=== PATIENT | male | born 1985 | race Caucasian/White ===

== ENCOUNTER 2017-03-19 19:54 | Inpatient (IN) | payer BC, OTHER ==
[~2017-03-19] VITALS: Ht 170.2 cm; Wt 72.9 kg
[~2017-03-19 19:54] MED LIST: ASPI81TA3 PO; CALC0.255 PO; CARV25TA97 PO; CLON-379 PO; FAMO20TA18 PO; FURO-109 PO; HYDR-3672 PO; LORA1TAB PO; NIFE90TA PO; NIT4 SL; SEVE800T10 PO
[2017-03-19] MEDS ORDERED: ACETAMINOPHEN 500 MG TAB PO STA (20:11)
[2017-03-19] MEDS ORDERED: CEFEPIME 2GM/50 ML (PMX) 50 ML IVPB STA (20:11)
[2017-03-19] MEDS ORDERED: SODIUM CHLORIDE 0.9% 1L BAG IV* STA (20:11)
[2017-03-19] MEDS ORDERED: VANCOMYCIN 1 GM (PMX) 250 ML IVPB ONE (20:30)
--- NOTE | 2017-03-19 20:37 | ERA ---
ER Documentation Chief Complaint Date/Time DATE: 03/19/17 TIME: 20:34 Chief Complaint [facility] from [facility],shaky during HD,c/o throbbing headache HPI Very pleasant 31-year-old male history of end-stage renal disease on dialysis who presents to the emergency room with shaking in the middle of dialysis. He had half of the session. He started to have uncontrolled shaking that was alleviated in a short timeframe. The patient did have elevated blood pressure and was given antihypertensive medication. He denies any headache chest pain or shortness of breath. He denies any abdominal pain. No reported fevers as an outpatient. He has a fever of 103 upon arrival. ROS All systems reviewed and are negative except as per history of present illness. Medications Home Meds Active Scripts Lorazepam* (Lorazepam*) 1 Mg Tablet, 1 MG PO BID Y for ANXIETY, #14 TAB Prov:PATTY SERNA 11/25/15 Hydralazine Hcl* (Hydralazine Hcl*) 50 Mg Tab, 50 MG PO QID, #120 TAB Prov:PATTY SERNA 11/25/15 Clonidine Hcl* (Clonidine Hcl*) 0.1 Mg Tab, 0.1 MG PO Q4H Y for sbp>160, #30 TAB Prov:REGBRIGHT RIZVI 11/18/15 Sevelamer Hcl* (Renagel*) 800 Mg Tab, 3200 MG PO WITH MEALS for 30 Days, TAB Prov:REGIDOBRIGHT Arias 11/18/15 Nifedipine* (Procardia XL*) 90 Mg Tabsr, 90 MG PO BID for 30 Days, TAB Prov:REGBRIGHT RIZVI 11/18/15 Furosemide* (Lasix*) 40 Mg Tab, 40 MG PO DAILY@06 for 30 Days, TAB Prov:REGIDOBRIGHT Airas 11/18/15 Carvedilol* (Coreg*) 25 Mg Tab, 25 MG PO BID for 30 Days, TAB Prov:BRIGHT AJCKSON 11/18/15 Nitroglycerin* (Nitrostat*) 25 Tab Subl, 0.4 TAB SL .Q5M UP TO 3 DOSES Y for CHEST PAIN, #30 TAB Prov:MORGAN JOHNSON MD 09/18/15 Calcitriol* (Rocaltrol*) 0.25 Mcg Cap, 0.25 MCG PO DAILY, #30 CAP 2 Refills Prov:MORGAN JOHNSON MD 09/18/15 Aspirin (Aspirin) 81 Mg Chew, 81 MG PO DAILY, #30 TAB 2 Refills Prov:MORGAN JOHNSON MD 09/18/15 Reported Medications Famotidine* (Famotidine*) 20 Mg Tablet, 20 MG PO BID, TAB 07/12/15 Allergies Allergies: Coded Allergies: No Known Allergy (Unverified , 11/25/15) PMhx/Soc Anesthesia Reaction: No Hx Neurological Disorder: No Hx Respiratory Disorders: No Hx Cardiac Disorders: Yes (HTN) Hx Psychiatric Problems: No Hx Miscellaneous Medical Probl: Yes (ESRD, peritoneal dialysis, peritoneal shunt) Hx Alcohol Use: Yes (NO LONGER DRINKS) Hx Substance Use: Yes (RECREATIONAL MARIJUANA) Hx Tobacco Use: No FmHx Family History: No diabetes Physical Exam Vitals Vital Signs Date Time Temp Pulse Resp B/P Pulse Ox O2 Delivery O2 Flow Rate FiO2 03/19/17 21:49 103.3 119 24 190/129 96 Room Air 03/19/17 20:57 0 03/19/17 20:00 100.0 105 18 195/120 98 Physical Exam General: Well developed, well nourished, no acute distress Head: Normocephalic, atraumatic Eyes: Pupils equally reactive, EOM intact ENT: Moist mucous membranes Neck: Supple, no lymphadenopathy Respiratory: Lungs clear bilaterally, no distress Cardiovascular: RRR, no murmurs, rubs, or gallops Abdominal: Soft, non-tender, non-distended, no peritoneal signs : Deferred MSK: No edema, no unilateral swelling, 5/5 strength Neurologic: Alert and oriented, moving all extremities, normal speech, no focal weakness, no cerebellar signs Skin: No rash, right subclavian tunneled Vas-Cath in good position Psych: Normal mood Result Diagram: 03/19/17 2030 03/19/17 2030 Results 24 hrs Laboratory Tests Test 03/19/17 20:30 White Blood Count 3.610^3/ul Red Blood Count 2.7510^6/ul Hemoglobin 8.4g/dl Hematocrit 25.1% Mean Corpuscular Volume 91.3fl Mean Corpuscular Hemoglobin 30.5pg Mean Corpuscular Hemoglobin Concent 33.5g/dl Red Cell Distribution Width 12.3% Platelet Count 59051^3/UL Mean Platelet Volume 10.8fl Neutrophils % 80.0% Lymphocytes % 16.9% Monocytes % 0.6% Eosinophils % 1.4% Basophils % 0.3% Nucleated Red Blood Cells % 0.0/100WBC Neutrophils # (Manual) 2.910^3/ul Lymphocytes # 0.610^3/ul Monocytes # 0.010^3/ul Eosinophils # 0.110^3/ul Basophils # 0.010^3/ul Nucleated Red Blood Cells # 0.010^3/ul Prothrombin Time 13.1Sec Prothrombin Time Ratio 1.0 INR International Normalized Ratio 0.99 Activated Partial Thromboplast Time 33.7Sec Sodium Level 138mmol/L Potassium Level 4.5mmol/L Chloride Level 95mmol/L Carbon Dioxide Level 23mmol/L Anion Gap 25 Blood Urea Nitrogen 79mg/dl Creatinine 17.79mg/dl Glucose Level 79mg/dl Lactic Acid Level 2.0mmol/L Calcium Level 8.7mg/dl Total Bilirubin 0.0mg/dl Direct Bilirubin 0.00mg/dl Indirect Bilirubin 0.0mg/dl Aspartate Amino Transf (AST/SGOT) 9IU/L Alanine Aminotransferase (ALT/SGPT) 19IU/L Alkaline Phosphatase 131IU/L Troponin I 0.061ng/ml Total Protein 7.6g/dl Albumin 4.5g/dl Globulin 3.10g/dl Albumin/Globulin Ratio 1.45 Current Medications Medications (Trade) Dose Ordered Sig/Fish Route PRN Reason Start Time Stop Time Status Last Admin Dose Admin Sodium Chloride 2020 ml 2,020 ml BOLUS OVER 2 HOURS STAT IV* 03/19/17 20:11 03/19/17 20:13 DC 03/19/17 20:47 Cefepime HCl 50 ml @ 100 mls/hr ONCE STAT IVPB 03/19/17 20:11 03/19/17 20:40 DC 03/19/17 20:55 Vancomycin HCl (Vancocin) 250 ml @ 125 mls/hr ONCE ONCE IVPB 03/19/17 20:30 03/19/17 22:29 03/19/17 20:30 Acetaminophen (Tylenol Tab) 1,000 mg ONCE STAT PO 03/19/17 20:11 03/19/17 20:13 DC 03/19/17 20:55 Ketorolac Tromethamine (Toradol) 15 mg ONCE STAT IV 03/19/17 21:47 03/19/17 21:48 DC Labetalol HCl (Labetalol) 20 mg ONCE ONCE IV 03/19/17 22:00 03/19/17 22:01 Ondansetron HCl (Zofran Inj) 4 mg BRIDGE ORDER PRN IV NAUSEA AND/OR VOMITING 03/19/17 22:00 03/20/17 21:59 Acetaminophen (Tylenol Tab) 650 mg ER BRIDGE PRN PO MILD PAIN/FEVER 03/19/17 22:00 03/20/17 21:59 Procedures/MDM EKG, MONITORS, & DIAGNOSTIC IMAGING: EKG: I reviewed and interpreted a 12-lead EKG. Rhythm: Normal sinus rhythm Ectopy: None Intervals: No abnormalities ST segments: No elevations or depressions T waves: No contiguous inversions Chest x-ray: I reviewed and interpreted a 1 view of the chest Mediastinum: No enlargement Cardiac silhouette: No cardiomegaly Airspace: Clear lung mcarthur bilaterally without evidence of pneumothorax Bones: No evidence of fracture LAB INTERPRETATION: Anemia, leukopenia, chronic renal insufficiency, no hyperkalemia, lactic acid 2.0 MEDICAL DECISION MAKING: The patient presents with shaking that is most consistent with rigors concerning for bacteremia. Most likely source is catheter related infection. The patient does not exhibit any signs or symptoms concerning for acute intra- abdominal process. No evidence of meningitis. No evidence of intracranial hemorrhage. This is not consistent with a seizure. The patient will need sepsis screening, fluid resuscitation, broad-spectrum antibiotics and hospitalization for culture monitoring. Given the fact that the patient did not receive a full course of dialysis I will proceed with caution with fluid resuscitation. He was written for 30 cc/ kg of normal saline but advised nursing staff to go slowly until risk stratification is complete. ER COURSE: Blood cultures taken, patient given vancomycin and cefepime. Antipyretics provided. The patient was ultimately given 500 cc of saline. We will stop there given concern for volume overload. He still has a fever, Toradol was provided. The patient also remains hypertensive, 20 of hydralazine provided. This is likely secondary to the patient not completing his dialysis. The patient is resting comfortably and I believe stable for medical surgical floor. Appropriate antibiotics provided. I kept the patient and/or family informed of laboratory and diagnostic imaging results throughout the emergency room course. DISPOSITION PLAN: Medical surgical admission for management of bacteremia and concern for sepsis CONSULTATION: Accepting care team and consultations: I discussed the current laboratory data, diagnostic imaging and emergency care provided. Admitting team: Dr. Pulliam Admitting team indication: Insurance directed Sepsis Documentation: Patient's infectious symptoms have not stabilized and the patient is at risk of rapid decompensation. The patient will be admitted for careful hydration, antibiotic therapy, and infectious source control. SEVERE SEPSIS CRITERIA: Infectious source: Dialysis catheter End organ damage indicated by: No evidence of endorgan damage, renal insufficiency consistent with baseline renal failure SEPSIS MANAGEMENT Time of recognition of severe sepsis/septic shock: Upon arrival 3 HOUR BUNDLE Blood cultures x 2 before broad-spectrum antibiotics: Yes 30 ml/kg NS bolus full 30/kg bolus not provided given dialysis and concern for volume overload Initial lactate 2.0 Repeat lactate pending repeat SEPTIC SHOCK ASSESSMENT: No lactic acid > 4.0 No persistent hypotension (SBP < 90 or 40 mmHg drop, MAP < 65) despite 30 mL/kg IV fluid bolus VOLUME REASSESSMENT FOR SEPTIC SHOCK: Reevaluation Time: 959pm Temp temperature of 103.3, pulse of 119 respiratory rate 24 blood pressure 190/ 129 Heart tachycardia Lungs No crackles Skin Warm & dry Cap Refill Less than 2 seconds Peripheral pulses Radially present PERSISTENT HYPOTENSION TREATMENT: Comfort care No Central line Not Required Vasopressor started Not required I considered further perfusion assessment with CVP measurement, SCVO2, bedside ultrasound volume assessment, passive leg raise, trial of further fluid bolus. And proceeded with fluid bolus of NSS, broad spectrum antbiotics, and admission. CRITICAL CARE Critical care time 35 minutes Emergent fluid management while maintaining close respiratory support. Provision of immediate and broad-spectrum antibiotic therapy. Simultaneous assessment for possible sources in order to direct targeted therapy. Consideration for invasive and chemical support to prevent cardiopulmonary collapse. Critical care time is independent of procedures performed. Departure Diagnosis: Primary Impression: Sepsis Qualified Code: A41.9 - Sepsis, due to unspecified organism Additional Impressions: Catheter-related bloodstream infection Qualified Code: T80.211A - Catheter-related bloodstream infection, initial encounter End stage renal disease on dialysis Anemia Qualified Code: D64.9 - Anemia, unspecified type Hypertensive urgency Condition: Stable LUZ WHITT MD Mar 19, 2017 20:37
[2017-03-19 20:53] LABS: BASOPHILS % 0.3 % (0.0-2.0); EOSINOPHILS # 0.1 10^3/ul (0.0-0.5); EOSINOPHILS % 1.4 % (0.0-7.0); HEMATOCRIT 25.1 % (42.0-52.0); HEMOGLOBIN 8.4 g/dl (14.0-18.0); LYMPHOCYTES # 0.6 10^3/ul (0.8-2.9); LYMPHOCYTES % 16.9 % (15.0-51.0); MEAN CORPUSCULAR HEMOGLOBIN 30.5 pg (29.0-33.0); MEAN CORPUSCULAR HGB CONC 33.5 g/dl (32.0-37.0); MEAN CORPUSCULAR VOLUME 91.3 fl (82.0-101.0); MEAN PLATELET VOLUME 10.8 fl (7.4-10.4); MONOCYTES % 0.6 % (0.0-11.0); PLATELET COUNT 183 10^3/UL (140-415); RED BLOOD COUNT 2.75 10^6/ul (4.70-6.10); RED CELL DISTRIBUTION WIDTH 12.3 % (11.5-14.5); WHITE BLOOD COUNT 3.6 10^3/ul (4.8-10.8)
[2017-03-19 21:08] LABS: INR 0.99; PARTIAL THROMBOPLASTIN TIME 33.7 Sec (25.0-35.0); PROTIME 13.1 Sec (12.2-14.2)
[2017-03-19 21:10] LABS: ALBUMIN 4.5 g/dl (3.3-4.9); ALBUMIN/GLOBULIN RATIO 1.45; CALCIUM 8.7 mg/dl (8.4-10.2); POTASSIUM 4.5 mmol/L (3.5-5.1); TOTAL PROTEIN 7.6 g/dl (6.1-8.1)
[2017-03-19 21:17] LABS: CREATININE 17.79 mg/dl (0.61-1.24)
[2017-03-19 21:21] LABS: TROPONIN-I 0.061 ng/ml (0.00-0.12)
[2017-03-19] MEDS ORDERED: KETOROLAC 15 MG INJ IV STA (21:47)
[2017-03-19] MEDS ORDERED: ONDANSETRON 4 MG INJ IV PRN ×2 (22:00→22:30)
[2017-03-19] MEDS ORDERED: ACETAMINOPHEN 325 MG TAB PO PRN ×2 (22:00→22:30)
[2017-03-19] MEDS ORDERED: LABETALOL HCL 20MG INJ IV ONE (22:00)
[2017-03-19] MEDS ORDERED: NACL 0.9% 3 ML SYG IV SCH (22:30)
[2017-03-19] MEDS ORDERED: LORAZEPAM 1 MG TAB PO PRN (22:30)
[2017-03-19] MEDS ORDERED: hydrALAzine 20 MG INJ IV PRN (22:30)
[2017-03-19] MEDS ORDERED: DOCUSATE SODIUM 100 MG CAP PO PRN (22:30)
[2017-03-19] MEDS ORDERED: BISACODYL (EC) 5 MG TAB PO PRN (22:30)
[2017-03-19] MEDS ORDERED: morphine 2 MG INJ IV PRN (22:30)
--- NOTE | 2017-03-19 22:36 | RADRPT ---
PROCEDURE: XR Chest. CLINICAL INDICATION: Possible sepsis. TECHNIQUE: Single frontal view of the chest was obtained COMPARISON: 11/25/2015. FINDINGS: New right central venous double-lumen dialysis catheter in place with tip in superior vena cava. Pre viously seen bilateral lung base air space disease is resolved. There is mild pulmonary vascular con gestion with may represent mild volume overload.. There is no pleural effusion or pneumothorax. IMPRESSION: Mild pulmonary vascular congestion may represent mild volume overload, and otherwise, no acute proce ss in the chest. RPTAT: [facility] Physician Luis Date Time Electronically viewed and signed by Physician Luis on 03/19/2017 22:35 RS/
[2017-03-19] MEDS: FAMOTIDINE 20 MG TAB PO SCH (23:25)
[2017-03-20] VITALS (10 sets, daily range): BP systolic 153–164; BP diastolic 90–98; PULSE 82–89; RESP 18–19; TEMP 99.1; Ht 170.2 cm; Wt 72.9 kg
[2017-03-20] MEDS ORDERED: VANCOMYCIN IV PER PHARMACY XX SCH (01:00)
[2017-03-20 05:32] LABS: ABNORMAL IP MESSAGE 1; BASOPHILS % 0.2 % (0.0-2.0); EOSINOPHILS % 0.1 % (0.0-7.0); HEMOGLOBIN 8.1 g/dl (14.0-18.0); LYMPHOCYTES # 0.2 10^3/ul (0.8-2.9); LYMPHOCYTES % 2.5 % (15.0-51.0); MEAN CORPUSCULAR HEMOGLOBIN 29.8 pg (29.0-33.0); MEAN CORPUSCULAR HGB CONC 32.4 g/dl (32.0-37.0); MEAN CORPUSCULAR VOLUME 91.9 fl (82.0-101.0); MEAN PLATELET VOLUME 9.8 fl (7.4-10.4); MONOCYTE # 0.3 10^3/ul (0.3-0.9); NEUTROPHILS % 92.7 % (39.0-77.0); PLATELET COUNT 120 10^3/UL (140-415); POSITIVE DIFF @See below; RED BLOOD COUNT 2.72 10^6/ul (4.70-6.10); RED CELL DISTRIBUTION WIDTH 12.5 % (11.5-14.5); WHITE BLOOD COUNT 8.6 10^3/ul (4.8-10.8)
[2017-03-20 06:01] LABS: ALBUMIN 3.9 g/dl (3.3-4.9); ALBUMIN/GLOBULIN RATIO 1.34; CALCIUM 8.2 mg/dl (8.4-10.2); CHOL/HDL RATIO 3.8 RATIO; MAGNESIUM 2.5 mg/dl (1.7-2.5); POTASSIUM 4.6 mmol/L (3.5-5.1); TOTAL PROTEIN 6.8 g/dl (6.1-8.1)
[2017-03-20 06:13] LABS: CREATININE 19.67 mg/dl (0.61-1.24)
--- NOTE | 2017-03-20 06:32 | HP ---
Date/Time of Note Date/Time of Note DATE: 03/20/17 TIME: 06:22 Assessment/Plan VTE Prophylaxis VTE Prophylaxis Intervention: SCD's Assessment/Plan Chief Complaint/Hosp Course This is a 31-year-old male being admitted to the telemetry floor for: #1 Sepsis: Likely catheter line sepsis. Tylenol for fevers. Started on vancomycin and cefepime in the ED will continue current antibiotic regimen. Will obtain a 2D echocardiogram to rule out endocarditis. Vascular surgery consultation. Follow blood cultures and urine cultures. Consider ID consultation. #2 End-stage renal disease: Patient is currently on hemodialysis. Continue home medications. Will consult nephrology and vascular surgery regarding catheter line sepsis and need for dialysis. #3 hypertension: Patient was initially hypertensive in the systolic 190s while in the ED, he was given hydralazine. Will continue to monitor blood pressure. Continue home medications and as needed hydralazine as needed. #4 DVT and GI prophylaxis: SCD, acid davey Further treatment strategy will be implemented as per the clinical course Problems: HPI/ROS Admit Date/Time Admit Date/Time Hx of Present Illness Chief complaint: Shaking during middle of dialysis This is a 31-year-old male history of end-stage renal disease on dialysis who presents to the emergency room with shaking in the middle of dialysis. He had half of the session. He started to have uncontrolled shaking that was alleviated in a short timeframe. The patient did have elevated blood pressure and was given antihypertensive medication. He denies any headache chest pain or shortness of breath. He denies any abdominal pain. No reported fevers as an outpatient. He had a fever of 103 upon arrival to the ED. Upon my examination patient did not appear in any acute distress and there were no shaking visible. He has a right subclavian tunneled Vas-Cath with no apparent drainage or rash near the insertion site. Allergies: NKDA Medications: See MAR ROS Const: As per HPI Eyes : No pain discharge or redness or change in visual acuity ENT: No pain, sore throat, congestion, congestion, dysphagia or discharge Respiratory: No shortness of breath, cough, sputum, wheezing, or pleuritic pain Cardiovascular: No chest pain, palpitation, PND, or edema GI : no change in appetite, abdominal pain, nausea, vomiting, diarrhea, constipation, or change in the color his stool Genitourinary: No dysuria, hematuria, flank pain , discharge or CVA tenderness Musculoskeletal: No joint pain, back pain, neck pain, restricted range of motion in neck or joints Skin: No rash, bruising or hives Neuro: No headache, dizziness, syncope, seizure, focal weakness Endocrine: No polyuria, polydipsia, temperature intolerance Psych: No hallucination, depression, anxiety or suicidal ideation PMH/Family/Social Past Medical History Hypertension, end-stage renal disease on dialysis Past Surgical History Right chest Vas-Cath placement Family History Significant Family History: no pertinent family hx Social History Alcohol Use: none Smoking Status: Current every day smoker (2 cigarettes a week) Drug Use: marijuana Exam/Review of Systems Vital Signs Vitals Vital Signs Date Time Temp Pulse Resp B/P Pulse Ox O2 Delivery O2 Flow Rate FiO2 03/20/17 05:05 80 22 140/90 96 Room Air 03/20/17 02:45 99.1 03/19/17 20:57 0 Exam Exam General: This is a pleasant 31-year-old male laying in bed in no acute distress HEENT: Atraumatic, normocephalic. The pupils are equal, round and reactive. Extraocular motor are intact Neck: Supple with full range of motion. No rigidity or meningismus Chest: Right subclavian Vas-Cath in place, no drainage or rash apparent at the site Lungs: Clear to auscultation bilaterally no crackles rales or wheezing Heart: Normal S1-S2, Regular rhythm and rate. No overt murmurs appreciated Abdomen: Soft , nontender, nondistended , bowel sounds are present. No guarding no rebound tenderness , No masses or organomegaly. No costovertebral temporal angle mass Extremities: Normal to inspection, no edema no cyanosis Neurologic: Normal mental status, speech normal, cranial nerves II through XII are intact, motor and sensory are intact, no focal weakness Additional Comments EKG Rhythm: Normal sinus rhythm Ectopy: None Intervals: No abnormalities ST segments: No elevations or depressions T waves: No contiguous inversions As per ED physician document patient PROCEDURE: XR Chest. CLINICAL INDICATION: Possible sepsis. TECHNIQUE: Single frontal view of the chest was obtained COMPARISON: 11/25/2015. FINDINGS: New right central venous double-lumen dialysis catheter in place with tip in superior vena cava. Previously seen bilateral lung base air space disease is resolved. There is mild pulmonary vascular congestion with may represent mild volume overload.. There is no pleural effusion or pneumothorax. IMPRESSION: Mild pulmonary vascular congestion may represent mild volume overload, and otherwise, no acute process in the chest. RPTAT: [facility]U Physician Luis Date Time Electronically viewed and signed by Juana Tierney Physician on 03/19/2017 22:35 RS/ CC: LUZ WHITT MD Labs Result Diagram: 03/20/1751403/20/17514 Medications Medications Current Medications Ondansetron HCl (Zofran Inj) 4 mg Q6H PRN IV NAUSEA AND/OR VOMITING; Start 03/19 at 22:30 Acetaminophen (Tylenol Tab) 650 mg Q6H PRN PO PAIN LEVEL 1-3 OR FEVER; Start at 22:30 Morphine Sulfate (morphine) 2 mg Q4H PRN IV PAIN LEVEL 7-10; Start 03/19/17 at 22:30 Docusate Sodium (Colace) 100 mg Q12H PRN PO CONSTIPATION; Start 03/19/17 at 22: 30 Bisacodyl (Dulcolax) 5 mg DAILY PRN PO CONSTIPATION; Start 03/19/17 at 22:30 Famotidine (Pepcid) 20 mg HS PO Last administered on 03/19/17 23:25; Admin Dose 20 MG; Start 03/19/17 at 22:30 Aspirin (Aspirin) 81 mg DAILY PO ; Start 03/20/17 at 09:00 Calcitriol (Rocaltrol) 0.25 mcg DAILY PO ; Start 03/20/17 at 09:00 Hydralazine HCl (Apresoline) 50 mg QID PO Last administered on 03/19/17 23:25; Admin Dose 50 MG; Start 03/19/17 at 22:30 Lorazepam (Ativan) 1 mg BID PRN PO ANXIETY; Start 03/19/17 at 22:30 Hydralazine HCl 10 mg 10 mg Q4H PRN IV ELEVATED BLOOD PRESSURE; Start 03/19/17 at 22:30 Cefepime HCl (Maxipime 1gm/50 ml (Pmx)) 50 ml @ 100 mls/hr DAILY IVPB ; Start 03/20/17 at 09:00 VIMAL IBANEZ Mar 20, 2017 06:32
[2017-03-20 07:12] LABS: THYROID STIMULATING HORMONE 0.812 MIU/L (0.465-4.680)
[2017-03-20] MEDS: SEVELAMER 800 MG TAB PO SCH ×3 (08:00→17:40)
[2017-03-20] MEDS ORDERED: CEFEPIME 1GM/50 ML (PMX) 50 ML IVPB SCH (09:00)
[2017-03-20] MEDS: ASPIRIN 81 MG TAB PO SCH (09:40)
[2017-03-20] MEDS: CALCITRIOL 0.25 MCG CAP PO SCH (11:57)
[2017-03-20] MEDS: CEFEPIME 1GM/50 ML (PMX) 50 ML IVPB SCH (11:57)
--- NOTE | 2017-03-20 12:39 | CONS ---
DATE OF ADMISSION: 03/19/2017 DATE OF CONSULTATION: 03/20/2017 TYPE OF CONSULTATION: Nephrology REASON FOR CONSULTATION: End-stage renal disease. HISTORY OF PRESENT ILLNESS: This is a 31-year-old male with a past medical history of end-stage renal disease on dialysis. Dialysis days are Tuesday, , Tuesday. 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 The patient also has a history of hypertension. He presents to [facility] Emergency Room from his dialysis unit after having uncontrolled shakes. The patient, in the Emergency Room, was noted to be febrile with a temperature 103. He was started on IV antibiotics and admitted to telemetry for further evaluation. PAST MEDICAL HISTORY: The patient's past medical history is end- stage renal disease, hypertension, metabolic disorder, anemia. PAST SURGICAL HISTORY: Status post PD catheter placement removal, status post PermCath placement. MEDICATIONS: The patient's medications have been reviewed. ALLERGIES: NO KNOWN DRUG ALLERGIES. SOCIAL HISTORY: Lives at home. FAMILY HISTORY: No family history of heart disease or kidney disease. REVIEW OF SYSTEMS: A 14-point review of systems was conducted. Pertinent positives stated in the HPI, otherwise negative. PHYSICAL EXAMINATION: VITAL SIGNS: Blood pressure is 164/98, temperature 98.0, pulse 70, respirations 18. HEENT: Head is normocephalic. Pupils are reactive to light. NECK: Supple. HEART: Regular rate. LUNGS: Show diminished breath sounds at the base. CHEST: On exam the patient's PermCath was noted. No tenderness. No pus expressed. ABDOMEN: Soft, nontender to palpation. No rebound or guarding. EXTREMITIES: Negative for clubbing, cyanosis or edema. DERMATOLOGIC: Clean. No rashes. MUSCULOSKELETAL: No joint effusion. NEUROLOGIC: No focal deficits. LABORATORY: Data shows a white count of 8.6, hemoglobin 8.1, hematocrit 25.0, platelet count 120; sodium 136, potassium 4.6, chloride 99, BUN 85, creatinine 19.67. IMPRESSION AND PLAN: This is a 31-year-old male who presents with: 1. End-stage renal disease. The patient is on dialysis Tuesday, , Tuesday. Access is PermCath. The patient is concerning for possible line infection. Plan is to draw blood cultures from PermCath. We will monitor peripheral cultures and continue IV antibiotics. We will also place a vascular surgery consult Dr. Roni Hoffmann possible removal of PermCath and placing of a temporary catheter. We will monitor closely. Anticipate next hemodialysis in 1-2 days. 2. Sepsis concerning for line infection. The patient is currently on antibiotics. We will follow up cultures and follow up with Infectious Disease. 3. Hypertension. Continue current blood pressure regimen and continue ultrafiltration with hemodialysis. 4. No significant anemia. Monitor hemoglobin and hematocrit levels. We will give Epogen as needed. 5. Mineral bone disorder. Monitor calcium and phosphate levels. 6. Gastrointestinal and deep venous thrombosis prophylaxis. Thank you, Dr. Danilo Pulliam for this interesting consult. It will be a pleasure to follow the patient with you throughout the hospital course. Dictated By: Ramesh Solis DO /tamiko/freya /Document#: [id number]
[2017-03-20] MEDS: FAMOTIDINE 20 MG TAB PO SCH (20:56)
[2017-03-20] MEDS: NIFEdipine (XL) 90 MG TAB PO SCH (20:57)
--- NOTE | 2017-03-20 21:51 | CONS ---
DATE OF ADMISSION: 03/19/2017 DATE OF CONSULTATION: 03/20/2017 Infectious Disease Consultation REQUESTING PHYSICIAN: Eric Arcos NP Thank you, Eric, for this consultation. HISTORY OF PRESENT ILLNESS: This is a 31-year-old, man with a history of end-stage renal disease, hemodialysis dependent, right chest Permacath, hypertension. The patient was in his usual state of health until yesterday when he developed significant chills and rigors during hemodialysis session. The hemodialysis was stopped and the patient immediately felt better once the catheter was discontinued. He came to the hospital with concern of infected line. The patient came with a temperature of 103.3, pulse 119, respirations 24, blood pressure 190/129, saturation 96 percent on room air. LABORATORY AND DIAGNOSTIC DATA: WBC 3.6, hemoglobin and hematocrit 8.4 and 25.1, platelets 183. Neutrophils 80. Sodium 138, potassium 4.5, normal bilirubin, and LFT. Alk phos 131, albumin 4.5. Blood cultures were sent and preliminary growing gram-negative rods. A chest x-ray revealed mild pulmonary vascular congestion, otherwise no acute process in the chest. The patient was started on vancomycin and cefepime. ALLERGIES: HE IS NOT ALLERGIC TO ANY MEDICATIONS. PAST MEDICAL HISTORY: Past medical history as per history. SOCIAL HISTORY: Patient came from home. Denies smoking, alcohol, illicits. REVIEW OF SYSTEMS: Review of systems as per history of present illness, otherwise all negative. PHYSICAL EXAMINATION: GENERAL: This is a well-nourished, well-developed, middle-aged, man, who is alert, in no distress. HEENT: Head atraumatic, normocephalic. Sclerae anicteric. Buccal mucosa pink. NECK: Supple. CHEST: Rise symmetrical. Breath sounds clear. HEART: S1, S2. ABDOMEN: Soft, bowel sounds present. EXTREMITIES: Without cyanosis, edema. IMPRESSION: This is a 31-year-old man with a history of hypertension and end-stage renal disease, admitted with what appears to be line sepsis and now growing gram-negative rods in the blood. He was started on vancomycin, cefepime. We are going to discontinue vancomycin and keep him on cefepime, await for final cultures. Consider discontinuing catheter and give the patient line holiday. We will discuss with Nephrology. Above was discussed with Dr. Joshua Meehan. Dictated By: Kal Weber NP /tamiko/brittney /Document#: [id number]
[2017-03-21] VITALS (19 sets, daily range): BP systolic 118–149; BP diastolic 65–85; PULSE 68–95; RESP 18–20
[2017-03-21 07:45] LABS: BASOPHILS % 0.4 % (0.0-2.0); EOSINOPHILS # 0.3 10^3/ul (0.0-0.5); EOSINOPHILS % 2.5 % (0.0-7.0); HEMATOCRIT 26.3 % (42.0-52.0); HEMOGLOBIN 8.3 g/dl (14.0-18.0); LYMPHOCYTES # 0.8 10^3/ul (0.8-2.9); LYMPHOCYTES % 7.8 % (15.0-51.0); MEAN CORPUSCULAR HEMOGLOBIN 29.4 pg (29.0-33.0); MEAN CORPUSCULAR HGB CONC 31.6 g/dl (32.0-37.0); MEAN CORPUSCULAR VOLUME 93.3 fl (82.0-101.0); MEAN PLATELET VOLUME 11.5 fl (7.4-10.4); MONOCYTE # 0.8 10^3/ul (0.3-0.9); MONOCYTES % 7.6 % (0.0-11.0); NEUTROPHILS % 80.5 % (39.0-77.0); PLATELET COUNT 135 10^3/UL (140-415); RED BLOOD COUNT 2.82 10^6/ul (4.70-6.10); RED CELL DISTRIBUTION WIDTH 12.4 % (11.5-14.5); WHITE BLOOD COUNT 10.1 10^3/ul (4.8-10.8)
[2017-03-21 08:18] LABS: CALCIUM 8.7 mg/dl (8.4-10.2); PHOSPHORUS 11.5 mg/dl (2.5-4.9); POTASSIUM 5.8 mmol/L (3.5-5.1)
[2017-03-21 08:27] LABS: CREATININE 21.08 mg/dl (0.61-1.24)
[2017-03-21] MEDS: NIFEdipine (XL) 90 MG TAB PO SCH ×2 (09:00→20:53)
[2017-03-21] MEDS: CEFEPIME 1GM/50 ML (PMX) 50 ML IVPB SCH (09:21)
[2017-03-21] MEDS: SEVELAMER 800 MG TAB PO SCH ×3 (09:22→17:56)
[2017-03-21] MEDS: ASPIRIN 81 MG TAB PO SCH (09:22)
[2017-03-21] MEDS: CALCITRIOL 0.25 MCG CAP PO SCH (09:22)
[2017-03-21] MEDS ORDERED: NA POLYST SULFON 15 GM/60 ML BTL PO ONE (09:30)
--- NOTE | 2017-03-21 09:35 | RADRPT ---
Echocardiogram Report Patient Name: ADAMS GAY Gender: Male Date: 1985 Study Date: 20-Mar-2017 Research Study Assistant: Kike Rebolledo [facility] Location: 5562 Ref. Physician: VIMAL IBANEZ Quality: Adequate Procedures: Transthoracic echocardiogram with complete 2D, M-Mode, and doppler examination. Indications: Line sepsis, r/o endocarditis. 2D/M Mode Doppler Measurement Value Normal Ranges Measurement Value Normal Ranges LVIDd 2D 5.3 3.5 - 5.6 cm AV Peak Steven 1.8 m/sec LVIDs 2D 3.8 2.1 - 4.1 cm AV Peak PG 13.0 mmHg FS 2D 27.8 % LVOT Peak Steven 1.4 m/sec LVPWd 2D 1.5 0.6 - 1.1 cm LVOT Peak PG 7.0 mmHg IVSd 2D 1.5 0.6 - 1.1 cm MV E Peak Steven 1.0 m/sec IVS/LVPW 2D 1.0 AoR Diam 2D 2.9 2.0 - 3.7 cm LA/Ao 2D 1 0 - 1 EDV 2D 146.0 cm3 ESV 2D 54.9 cm3 LA Dimen 2D 3.9 2.3 - 4.0 cm Findings Left Ventricle: Normal left ventricular systolic function. Normal left ventricular cavity size. Moderate concentric left ventricular hypertrophy. Ejection fraction is visually estimated at 65 %. Abnormal Diastolic Function. Right Ventricle: Normal right ventricular size. Normal right ventricular systolic function. Left Atrium: The left atrium is normal in size. Right Atrium: The right atrium is normal in size. Mitral Valve: Mitral valve leaflets appear mildly thickened. Mild mitral annular calcification. Trace mitral regurgitation. Aortic Valve: Aortic sclerosis without stenosis. Mild aortic valve regurgitation. Tricuspid Valve: Normal appearance of the tricuspid valve. Unable to obtain RVSP due to minimal presence of tricuspid regurgitation. There is trace tricuspid regurgitation. Pulmonic Valve: Normal pulmonic valve appearance. There is trace pulmonic regurgitation. Pericardium: Normal pericardium with no significant pericardial effusion. Aorta: Normal aortic root. IVC: Normal size and normal respiratory collapse consistent with normal right atrial pressure. Conclusions 1.Normal left ventricular systolic function. Normal left ventricular cavity size. Moderate concentric left ventricular hypertrophy. Ejection fraction is visually estimated at 65 %. Abnormal Diastolic Function. 2.Aortic sclerosis without stenosis. Mild aortic valve regurgitation. 3.Mitral valve leaflets appear mildly thickened. Mild mitral annular calcification. Trace mitral regurgitation. 4.Normal appearance of the tricuspid valve. Unable to obtain RVSP due to minimal presence of tricuspid regurgitation. There is trace tricuspid regurgitation. 5.Normal pulmonic valve appearance. There is trace pulmonic regurgitation. 6.No evidence of Valvular vegetation if sucpicion is high consider NÉSTOR. Electronically Signed By: Tushar Levy 21-Mar-2017 09:35:00 -0700 Patient Name: ADAMS GAY Study Date: 20-Mar-2017 [id number]
--- NOTE | 2017-03-21 15:26 | PN ---
Date/Time of Note Date/Time of Note DATE: 03/21/17 TIME: 15:23 Assessment/Plan VTE Prophylaxis VTE Prophylaxis Intervention: SCD's Lines/Catheters IV Catheter Type (from Nrs): Central Line Central line still needed: Yes Assessment/Plan Chief Complaint/Hosp Course Assessment and plan 1. Sepsis likely secondary to dialysis catheter. Continue antibiotics. ID consult is following. Follow-up with recommendations. 2. Incisional disease. Continue on dialysis per nephrology recommendations. Monitor electrolyte. 3. Essential hypertension. Continue antihypertensives as needed. For vascular surgeon input Disposition plan: Continue antibiotics. Await vascular surgeon consultation. Discussed plan of care with Dr. Abdi Problems: Subjective 24 Hr Interval Summary Free Text/Dictation Comfortable at present. No reports of distress Exam/Review of Systems Vital Signs Vitals Vital Signs Date Time Temp Pulse Resp B/P Pulse Ox O2 Delivery O2 Flow Rate FiO2 03/21/17 13:30 81 03/21/17 11:58 98.0 18 138/76 98 03/20/17 10:38 Room Air 03/19/17 20:57 0 Intake and Output 03/20/17 03/20/17 03/21/17 15:00 23:00 07:00 Intake Total 1050 ml 300 ml Balance 1050 ml 300 ml Exam Constitutional: alert, oriented Eyes: nl conjunctiva Respiratory: clear to auscultation, normal air movement Cardiovascular: regular rate and rhythm Gastrointestinal: nl liver, spleen, soft Musculoskeletal: nl extremities to inspection Extremities: normal pulses Neurological: STOCK CAR [employer]IVER II-XII intact, nl mental status, nl speech Results Result Diagram: 03/21/17 0644 03/21/17 0644 Results 24 hrs Laboratory Tests Test 03/21/17 06:44 White Blood Count 10.1 Red Blood Count 2.82 L Hemoglobin 8.3 L Hematocrit 26.3 L Mean Corpuscular Volume 93.3 Mean Corpuscular Hemoglobin 29.4 Mean Corpuscular Hemoglobin Concent 31.6 L Red Cell Distribution Width 12.4 Platelet Count 135 L Mean Platelet Volume 11.5 H Neutrophils % 80.5 H Lymphocytes % 7.8 L Monocytes % 7.6 Eosinophils % 2.5 Basophils % 0.4 Nucleated Red Blood Cells % 0.0 Neutrophils # (Manual) 8.1 H Lymphocytes # 0.8 Monocytes # 0.8 Eosinophils # 0.3 Basophils # 0.0 Nucleated Red Blood Cells # 0.0 Sodium Level 135 Potassium Level 5.8 H Chloride Level 96 L Carbon Dioxide Level 16 L Anion Gap 29 H Blood Urea Nitrogen 106 H Creatinine 21.08 H Glucose Level 70 Calcium Level 8.7 Phosphorus Level 11.5 H Magnesium Level 3.0 H Random Vancomycin Level 16.4 Medications Medications Current Medications Ondansetron HCl (Zofran Inj) 4 mg Q6H PRN IV NAUSEA AND/OR VOMITING Last administered on 03/20/17 11:57; Admin Dose 4 MG; Start 03/19/17 at 22:30 Acetaminophen (Tylenol Tab) 650 mg Q6H PRN PO PAIN LEVEL 1-3 OR FEVER; Start at 22:30 Morphine Sulfate (morphine) 2 mg Q4H PRN IV PAIN LEVEL 7-10; Start 03/19/17 at 22:30 Docusate Sodium (Colace) 100 mg Q12H PRN PO CONSTIPATION; Start 03/19/17 at 22: 30 Bisacodyl (Dulcolax) 5 mg DAILY PRN PO CONSTIPATION; Start 03/19/17 at 22:30 Famotidine (Pepcid) 20 mg HS PO Last administered on 03/20/17 20:56; Admin Dose 20 MG; Start 03/19/17 at 22:30 Aspirin (Aspirin) 81 mg DAILY PO Last administered on 03/21/17 09:22; Admin Dose 81 MG; Start 03/20/17 at 09:00 Calcitriol (Rocaltrol) 0.25 mcg DAILY PO Last administered on 03/21/17 09:22; Admin Dose 0.25 MCG; Start 03/20/17 at 09:00 Hydralazine HCl (Apresoline) 50 mg QID PO Last administered on 03/21/17 13:40 ; Admin Dose 50 MG; Start 03/19/17 at 22:30 Lorazepam (Ativan) 1 mg BID PRN PO ANXIETY; Start 03/19/17 at 22:30 Hydralazine HCl 10 mg 10 mg Q4H PRN IV ELEVATED BLOOD PRESSURE; Start 03/19/17 at 22:30 Cefepime HCl (Maxipime 1gm/50 ml (Pmx)) 50 ml @ 100 mls/hr DAILY IVPB Last administered on 03/21/17 09:21; Admin Dose 100 MLS/HR; Start 03/20/17 at 09:00 Carvedilol (Coreg) 25 mg BID PO Last administered on 03/20/17 20:57; Admin Dose 25 MG; Start 03/20/17 at 21:00 Nifedipine 90 mg 90 mg BID PO Last administered on 03/20/17 20:57; Admin Dose 90 MG; Start 03/20/17 at 21:00 Vancomycin HCl (Vancocin) 250 ml @ 125 mls/hr 21 IVPB ; Start 03/21/17 at 21:00 ; Stop 03/21/17 at 23:59 BRIGHT JACKSON Mar 21, 2017 15:26
--- NOTE | 2017-03-21 15:42 | HPN ---
Date/Time of Note Date/Time of Note DATE: 03/21/17 TIME: 15:42 Interval H&P Admission Note Pt. seen H&P reviewed: No system changes LAVERNE TODD MD Mar 21, 2017 15:42
--- NOTE | 2017-03-21 15:44 | OPR ---
Date/Time of Note Date/Time of Note DATE: 03/21/17 TIME: 15:43 Operative Report Free Text/Dictation DATE OF OPERATION: 03/21/17 SURGEON: Misael Todd MD PREOPERATIVE DIAGNOSIS: ESRD POSTOPERATIVE DIAGNOSIS: ESRD ANESTHESIA: Local BLOOD LOSS: minimal COMPLICATIONS: None. HEPARIN: None CONTRAST: None CLOSURE: Manual compression & 3-0 Nylon suture INDICATIONS: This is a 31 year-old female with ESRD and multiple medical conditions. Currently has a permanent catheter for dialysis and fevers. Patient and family have been informed of the alternatives, risks, and benefits. Risks including but not limited to bleeding, thrombosis, embolization, myocardial infarction, , device malfunction, infection, pneumothorax, and nephrotoxicity and patient has agreed to proceed. PROCEDURE: 1. Removal of right chest wall catheter DESCRIPTION: The patient was placed supine on bed. The neck and chest were prepped and draped with sterile technique. A time-out was completed verifying correct patient, procedure, site, positioning prior to beginning this procedure. Using 1 % lidocaine the catheter tract was anesthetized. Using a Raina clamp the catheter cuff was freed from surrounding granulation tissue and the catheter was removed successfully. Manual compression was held for hemostasis and a 3-0 nylon suture was placed at the catheter site. Sterile dressing was applied. The patient tolerated the procedure well and in fair condition. Estimated Blood Loss: none Transfusion Required: no Specimens catheter tip Grafts/Implants: none Complications: no Pt Condition Post Procedure: stable Disposition: PACU MISAEL TODD MD Mar 21, 2017 15:44
--- NOTE | 2017-03-21 16:17 | HP ---
DATE OF ADMISSION: 03/19/2017 HISTORY OF PRESENT ILLNESS: Mr. Downs is a 31-year-old gentleman with a new onset of end-stage renal disease since May of this past year. Patient had been started on dialysis on Tuesday, , Tuesday schedule. He is right-hand dominant, and he has a right chest wall catheter. Patient presented to [facility] with fevers of 103 and was started on IV antibiotics and suspicion of a possible catheter infection. At the moment, he denies shortness of breath, chest pain, nausea, vomiting, fever, or chills. REVIEW OF SYSTEMS: A 14-point review performed, negative except what was mentioned in HPI. PAST MEDICAL HISTORY: Entails: 1. End-stage renal disease. 2. Anemia of chronic disease. 3. Hypertension. PAST SURGICAL HISTORY: PD catheter placed in the past and removed, chest wall catheter. ALLERGIES: NONE. SOCIAL HISTORY: Denies tobacco, alcohol or illicit drug use. FAMILY HISTORY: Diabetes and hypertension. PHYSICAL EXAMINATION: GENERAL APPEARANCE: Alert, oriented x3. RESPIRATORY: Clear to auscultation bilaterally. CARDIAC: S1, S2 present. ABDOMEN: Soft, nontender, nondistended. Bowel sounds positive. HEENT: Normocephalic, atraumatic. PERRLA. EOMI. Mucosa moist. NECK: Supple. No carotid bruit. EXTREMITIES: Lower extremities, palpable femoral pulse. Palpable pedal pulse. Motor and sensory intact. Capillary refill 2-3 seconds. Bilateral upper extremities, palpable right brachial pulse. Motor and sensory intact. Capillary refill 2-3 seconds. Chest wall catheter intact, with some serous drainage from the catheter insertion site. ASSESSMENT/PLAN: 1. End-stage renal disease: The patient's right chest wall catheter may be infected, as patient has presented with sepsis. We will plan to remove the catheter next day. At the moment, we will plan to obtain bilateral upper extremity vein mapping to evaluate for possible fistula creation for the patient. 2. Discussed findings, plan and management with the patient, and he understands. 3. Optimize vascular status (blood pressure meds, diet, nutrition, exercise, sugar control, antiplatelets). 4. Thank you for allowing us to partake in the care of your patient. Please call with any questions. A certified vegetable inspector was present. Dictated By: Misael Sahni MD /tamiko/vitor /Document#: [id number]
[2017-03-21] MEDS: EPOETIN 10000 UNITS/1 ML INJ (ESRD) SC SCH (18:00)
--- NOTE | 2017-03-21 18:53 | PN ---
DATE: 03/21/2017 SUBJECTIVE DATA: The patient is stable. No events overnight. No fevers, chills, nausea, vomiting. Patient is currently receiving hemodialysis. OBJECTIVE DATA: VITAL SIGNS: Blood pressure is 118/71, respirations 18, pulse 67, temperature 98.0 HEENT: Head is normocephalic. NECK: Supple. HEART: Regular rate. LUNGS: Diminished breath sounds at the base. ABDOMEN: Soft, nontender to palpation. No rebound, guarding. EXTREMITIES: Negative for clubbing, cyanosis. No edema. DERMATOLOGIC: No rashes. MUSCULOSKELETAL: No joint effusion. NEUROLOGIC: No change in exam. MEDICATIONS: Reviewed. LABORATORY AND DIAGNOSTIC DATA: Sodium 135, potassium 5.8, BUN 106, creatinine 21. White count 10.1, hemoglobin 8.3, hematocrit 26.3, platelet count is 135,000. ASSESSMENT AND PLAN: 1. End-stage renal disease. Patient is currently on hemodialysis. Will dialyze for 3 hours on 2K bath, calcium 2.5. Patient's PermCath will likely need to be discontinued after dialysis by Vascular Surgery due to suspected line infection. Will monitor closely for daily diabetic needs. 2. Sepsis likely from line infection. Patient is critical. Blood cultures are positive. Patient's PermCath is pending removal by Vascular Surgery. Continue current antibiotic regimen per Infectious Disease. 3. Hypertension. Continue current blood pressure regimen. Continue ultrafiltration dialysis. 4. Anemia. Monitor hemoglobin and hematocrit levels. 5. Mineral bone disorder. Monitor calcium and phosphorus levels. 6. Gastrointestinal and deep venous thrombosis prophylaxis. Dictated By: Ramesh Solis DO /tamiko/jv /Document#: [id number]
[2017-03-21] MEDS: FAMOTIDINE 20 MG TAB PO SCH (20:53)
[2017-03-21] MEDS ORDERED: VANCOMYCIN 1 GM in NS 250 ML IVPB SCH (21:00)
--- NOTE | 2017-03-21 21:45 | PN ---
DATE: 03/21/2017 SUBJECTIVE DATA: The patient is alert, just finished hemodialysis. He is scheduled to go to OR for right PermCath removal. MICROBIOLOGY: Blood culture growing gram-negative rods and gram- positive cocci seen in clusters. OBJECTIVE DATA: VITAL SIGNS: He had been afebrile since admission with a temperature of 103.3 when he presented to emergency department. Temperature 98, pulse 96, respirations 18, blood pressure 138/76, and saturation 98 on room air. LABORATORY AND DIAGNOSTIC DATA: WBC 10.1, platelets 135, and neutrophils 80.5. ANTIMICROBIALS: Vancomycin and cefepime. PHYSICAL EXAMINATION: GENERAL: Well developed, middle-aged, man, who is alert, in no distress. HEENT: Head atraumatic, normocephalic. Sclerae anicteric. Buccal mucosa pink. NECK: Supple. CHEST: Chest rise symmetrical. Breath sounds clear. HEART: S1, S2. ABDOMEN: Soft, bowel sounds present. EXTREMITIES: Without cyanosis. ASSESSMENT: 1. Polymicrobial bacteremia secondary to infected PermCath. 2. End-stage renal disease. 3. Hypertension. PLAN: 1. The patient remains stable. 2. Pending final cultures. 3. He also had a blood cultures sent with hemodialysis earlier today. 4. Pending PermCath discontinuation. Dictated By: Kal Weber NP /tamiko/silvia /Document#: [id number]
[2017-03-22] VITALS (12 sets, daily range): BP systolic 102–133; BP diastolic 65–80; PULSE 77–90; RESP 19–20
[2017-03-22 06:57] LABS: BASOPHILS % 0.5 % (0.0-2.0); EOSINOPHILS # 0.3 10^3/ul (0.0-0.5); EOSINOPHILS % 3.7 % (0.0-7.0); HEMATOCRIT 27.5 % (42.0-52.0); HEMOGLOBIN 8.8 g/dl (14.0-18.0); LYMPHOCYTES # 1.1 10^3/ul (0.8-2.9); LYMPHOCYTES % 14.7 % (15.0-51.0); MEAN CORPUSCULAR VOLUME 93.9 fl (82.0-101.0); MEAN PLATELET VOLUME 11.2 fl (7.4-10.4); MONOCYTE # 0.8 10^3/ul (0.3-0.9); MONOCYTES % 10.8 % (0.0-11.0); NEUTROPHILS % 69.8 % (39.0-77.0); PLATELET COUNT 162 10^3/UL (140-415); RED BLOOD COUNT 2.93 10^6/ul (4.70-6.10); RED CELL DISTRIBUTION WIDTH 12.2 % (11.5-14.5); WHITE BLOOD COUNT 7.6 10^3/ul (4.8-10.8)
[2017-03-22 07:31] LABS: CALCIUM 8.7 mg/dl (8.4-10.2); POTASSIUM 4.3 mmol/L (3.5-5.1)
[2017-03-22 07:42] LABS: CREATININE 17.81 mg/dl (0.61-1.24)
[2017-03-22] MEDS ORDERED: LIDOCAINE 1% (MDV) 20 ML INJ ONE (07:55)
[2017-03-22] MEDS ORDERED: HEPARIN 1000 UNITS/ML 10 ML INJ ONE (07:55)
--- NOTE | 2017-03-22 08:42 | RADRPT ---
PROCEDURE: US bilateral upper extremity Venous. CLINICAL INDICATION: End-stage renal disease, vein mapping TECHNIQUE: Multiple sonographic images of the bilateral upper lower extremity deep an superficial venous system was obtained utilizing grayscale, color-flow, compressive sonography and doppler imagi ng with augmentation. Measurements were performed. The images were reviewed on a PACS workstation. COMPARISON: None. FINDINGS: RIGHT Right basilic vein size: Proximal: 7.6 mm Mid aspect: 5.4 mm Distal: 5.0 mm Right basilic vein size in the forearm: Proximal: 1.7 mm Mid aspect: 1.7 mm Distal: 1.8 mm Right cephalic vein size: Proximal: 1.2 mm Mid aspect: 1.4 mm Distal: 1.5 mm Right cephalic vein size in the forearm: Proximal: 3.3 mm Mid aspect: 2.8 mm Distal: 2.4 mm LEFT Left basilic vein size: Proximal: 5.2 mm Mid aspect: 6.6 mm Distal: 4.0 mm Left basilic vein size in the forearm: Proximal: 2.5 mm Mid aspect: 2.2 mm Distal: 1.4 mm Left cephalic vein size: Proximal: 1.7 mm Mid aspect: 2.0 mm Distal: 2.4 mm Left cephalic vein size in the forearm: Proximal: 3.3 mm Mid aspect: 3.1 mm Distal: 2.3 mm IMPRESSION: Vein mapping as described. RPTAT: AA .Salas Norris MD, Date Time Electronically viewed and signed by .Salas Norris MD, on 03/22/2017 08:42 .S/
--- NOTE | 2017-03-22 08:49 | HPN ---
Date/Time of Note Date/Time of Note DATE: 03/22/17 TIME: 08:49 Interval H&P Admission Note Pt. seen H&P reviewed: No system changes LAVERNE TODD MD Mar 22, 2017 08:49
--- NOTE | 2017-03-22 08:50 | OPR ---
Date/Time of Note Date/Time of Note DATE: 03/22/17 TIME: 08:49 Operative Report Free Text/Dictation DATE OF OPERATION: 03/22/2017 SURGEON: Misael Todd MD PREOPERATIVE DIAGNOSIS: ESRD POSTOPERATIVE DIAGNOSIS: same ANESTHESIA: Local BLOOD LOSS: minimal COMPLICATIONS: None. ACCESS: Right common femoral vein INDICATIONS: This is a 31 year-old male with ESRD requiring dialysis. Patient and family have been informed of the alternatives, risks, and benefits. Risks including but not limited to bleeding, thrombosis, embolization, myocardial infarction, , device malfunction, infection, pneumothorax, nephrotoxicity and patient has agreed to proceed. PROCEDURE: 1. Ultrasound guided access of right common femoral vein 2. Right common femoral vein non-tunneled hemodialysis catheter placement DESCRIPTION: The patient was in supine position in his bed. Bed was placed in slight Trendelenburg position and the groin was prepped and draped with sterile technique. The central catheter was flushed with heparin to ensure function of each port. Landmarks were identified and the skin entry site was chosen using ultrasound guidance. The skin And subcutaneous tissue were anesthetized with 1% lidocaine. The vein was then located with a needle with a 10 mL syringe using ultrasound guidance. The needle was then directed towards the vein and was entered. The needle position was secured and syringe was removed. The hub was occluded to prevent venous air embolus. The guidewire was passed easily and the needle was removed while the wire was held in place. A small incision was then made at the point of the wire entry. The dilator was placed over the wire and the tract gently dilated. The catheter was fed over the wire, ensuring the wire exited from the port before advancing the catheter. The catheter was inserted to the desired depth and the wire removed. Each port was aspirated to ensure adequate blood flow and then flushed with heparinized saline solution. The catheter was secured in place with a 2-0 nylon suture and a sterile dressing was applied. The patient tolerated the procedure well and was in stable condition. All instrument, sponge and needle counts were correct 2. Plan:May use catheter Estimated Blood Loss: none Transfusion Required: no Complications: no Pt Condition Post Procedure: stable Disposition: PACU MISAEL TODD MD Mar 22, 2017 08:50
--- NOTE | 2017-03-22 08:53 | OPR ---
Date/Time of Note Date/Time of Note DATE: 03/22/17 TIME: 08:50 Operative Report Free Text/Dictation Date of Operation: 03/22/2017 Surgeon: Dr. Misael Todd Preoperative diagnosis: ESRD Postoperative diagnosis: Same Contrast: As recorded Heparin: None Complications: None Indications: This is a 31-year-old male whom presented with longstanding history of right chest wall catheter and presented with sepsis. Recently had the chest wall catheter removed and concern for central stenosis is there given having CWC near a year. In light of these findings patient agreed to proceed with the venogram. Risks and benefits were discussed with the patient and not limited to , myocardial infarction, stroke, contrast nephrotoxicity, pneumonia, and infection. Procedure: 1. Bilateral upper extremity venogram 2. Central venogram Findings: Right cephalic vein patent Right basilic vein patent Right brachial vein patent although small caliber Right axillary vein patent Right subclavian vein occluded Right brachiocephalic vein occluded Right Internal Jugular vein occluded SVC occluded Multiple right intercostal veins that are enlarged as he has central stenosis/ occlusion Left Cephalic vein not visualized Left basilic vein patent Left brachial vein patent Left axillary vein patent Left subclavian occluded Left brachiocephalic vein occluded Multiple left intercostal veins that are enlarged as he has central stenosis/ occlusion Description: The patient was brought into the confectionery laboratory manager and placed on the angiogram table in supine position. Time-out was conducted and patient had a verification was correct. 2 IV sites were placed in the distal arm. Contrast was injected and findings were noted as above. Performed central venogram and findings noted above. The patient tolerated procedure well and was taken to recovery room in fair condition. Plan: will discuss with patient for possible options to gain access centrally as he has central occlusion Anesthesia Type: other (local) Estimated Blood Loss: none Transfusion Required: no Grafts/Implants: none Complications: no Pt Condition Post Procedure: stable Disposition: PACU MISAEL TODD MD Mar 22, 2017 08:53
[2017-03-22] MEDS: SEVELAMER 800 MG TAB PO SCH ×3 (09:31→17:57)
[2017-03-22] MEDS: CEFEPIME 1GM/50 ML (PMX) 50 ML IVPB SCH (09:32)
[2017-03-22] MEDS: NIFEdipine (XL) 90 MG TAB PO SCH ×2 (09:33→20:47)
[2017-03-22] MEDS: ASPIRIN 81 MG TAB PO SCH (09:33)
[2017-03-22] MEDS: CALCITRIOL 0.25 MCG CAP PO SCH (09:34)
[2017-03-22] MEDS ORDERED: IODIXANOL LOCM 50 ML BTL ONE (09:48)
[2017-03-22] MEDS ORDERED: IODIXANOL LOCM 100 ML BTL ONE (10:37)
--- NOTE | 2017-03-22 11:13 | PN ---
DATE: 03/22/2017 SUBJECTIVE DATA: Patient is stable. Had his Permacath removed yesterday. The patient is pending a Adebayo catheter placement today. No other events noted. OBJECTIVE DATA: VITAL SIGNS: Blood pressure is 120/78, respirations 19, pulse 89, temperature 97.7. HEENT: Head is normocephalic. NECK: Supple. HEART: Regular rate. LUNGS: Diminished breath sounds at the base. ABDOMEN: Soft, nontender to palpation. No rebound or guarding. EXTREMITIES: Negative for clubbing, cyanosis. No edema. DERMATOLOGIC: No rashes. MUSCULOSKELETAL: No joint effusion. NEUROLOGIC: No change in exam. MEDICATIONS: Reviewed. LABORATORY AND DIAGNOSTIC DATA: Sodium 137, potassium 4.3, chloride 97, BUN 79, creatinine 17.81, phosphorus 9.5. White count 7.6, hemoglobin 8.8, platelet count is 162. ASSESSMENT AND PLAN: 1. End-stage renal disease. The patient has a temporary dialysis catheter. Plan for dialysis tomorrow. 2. Sepsis from line infection. The patient's Permacath was removed. Continue antibiotics. 3. Hypertension. Continue current blood pressure regimen. 4. Anemia. Monitor hemoglobin and hematocrit levels. Will give Epogen with dialysis. 5. Mineral bone disorder. Monitor calcium and phosphorus levels. 6. Gastrointestinal and deep venous thrombosis prophylaxis. Dictated By: Ramesh Solis DO /tamiko/brittney /Document#: [id number]
--- NOTE | 2017-03-22 15:09 | PN ---
Date/Time of Note Date/Time of Note DATE: 03/22/17 TIME: 15:07 Assessment/Plan VTE Prophylaxis VTE Prophylaxis Intervention: ambulation, SCD's Lines/Catheters IV Catheter Type (from Nrs): Saline Lock Assessment/Plan Chief Complaint/Hosp Course Assessment and plan 1. Sepsis likely secondary to dialysis catheter. Preliminary blood cultures did show Serratia Marcescens and Staphylococcus species. Follow-up on final result. Antibiotics per ID. New dialysis catheter in place 2. End-stage renal disease. Continue on dialysis per nephrology recommendations. Monitor electrolyte. 3. Essential hypertension. Continue antihypertensives as needed. For vascular surgeon input Disposition plan: Continue antibiotics. Continue on dialysis. Awaiting final cultures from blood. Antibiotics per ID events solutions consultant. Discharged in medically stable and cleared by events solutions consultant Discussed plan of care with Dr. Abdi Problems: Subjective 24 Hr Interval Summary Free Text/Dictation Comfortable at present with no specific complaints. Denies any pain at this time. Exam/Review of Systems Vital Signs Vitals Vital Signs Date Time Temp Pulse Resp B/P Pulse Ox O2 Delivery O2 Flow Rate FiO2 03/22/17 12:30 78 03/22/17 12:28 113/70 03/22/17 11:30 98.3 19 100 03/20/17 10:38 Room Air 03/19/17 20:57 0 Intake and Output 03/21/17 03/21/17 03/22/17 15:00 23:00 07:00 Intake Total 550 ml 750 ml 200 ml Output Total 4500 ml 200 ml Balance -3950 ml 550 ml 200 ml Exam Constitutional: alert, oriented Eyes: nl conjunctiva Respiratory: clear to auscultation, normal air movement Cardiovascular: regular rate and rhythm Gastrointestinal: nl liver, spleen, soft Musculoskeletal: nl extremities to inspection Extremities: normal pulses Neurological: RNFA II-XII intact, nl mental status, nl speech Results Result Diagram: 03/22/1762703/22/17627 Results 24 hrs Laboratory Tests Test 03/22/17 06:28 White Blood Count 7.6 # Red Blood Count 2.93 L Hemoglobin 8.8 L Hematocrit 27.5 L Mean Corpuscular Volume 93.9 Mean Corpuscular Hemoglobin 30.0 Mean Corpuscular Hemoglobin Concent 32.0 Red Cell Distribution Width 12.2 Platelet Count 162 Mean Platelet Volume 11.2 H Neutrophils % 69.8 Lymphocytes % 14.7 L Monocytes % 10.8 Eosinophils % 3.7 Basophils % 0.5 Nucleated Red Blood Cells % 0.0 Neutrophils # (Manual) 5.3 Lymphocytes # 1.1 Monocytes # 0.8 Eosinophils # 0.3 Basophils # 0.0 Nucleated Red Blood Cells # 0.0 Sodium Level 137 Potassium Level 4.3 Chloride Level 97 Carbon Dioxide Level 22 Anion Gap 22 #H Blood Urea Nitrogen 79 H Creatinine 17.81 #H Glucose Level 111 # Calcium Level 8.7 Medications Medications Current Medications Ondansetron HCl (Zofran Inj) 4 mg Q6H PRN IV NAUSEA AND/OR VOMITING Last administered on 03/20/17 11:57; Admin Dose 4 MG; Start 03/19/17 at 22:30 Acetaminophen (Tylenol Tab) 650 mg Q6H PRN PO PAIN LEVEL 1-3 OR FEVER; Start at 22:30 Morphine Sulfate (morphine) 2 mg Q4H PRN IV PAIN LEVEL 7-10; Start 03/19/17 at 22:30 Docusate Sodium (Colace) 100 mg Q12H PRN PO CONSTIPATION; Start 03/19/17 at 22: 30 Bisacodyl (Dulcolax) 5 mg DAILY PRN PO CONSTIPATION; Start 03/19/17 at 22:30 Famotidine (Pepcid) 20 mg HS PO Last administered on 03/21/17 20:53; Admin Dose 20 MG; Start 03/19/17 at 22:30 Aspirin (Aspirin) 81 mg DAILY PO Last administered on 03/22/17 09:33; Admin Dose 81 MG; Start 03/20/17 at 09:00 Calcitriol (Rocaltrol) 0.25 mcg DAILY PO Last administered on 03/22/17 09:34; Admin Dose 0.25 MCG; Start 03/20/17 at 09:00 Hydralazine HCl (Apresoline) 50 mg QID PO Last administered on 03/22/17 12:29 ; Admin Dose 50 MG; Start 03/19/17 at 22:30 Lorazepam (Ativan) 1 mg BID PRN PO ANXIETY; Start 03/19/17 at 22:30 Hydralazine HCl 10 mg 10 mg Q4H PRN IV ELEVATED BLOOD PRESSURE; Start 03/19/17 at 22:30 Cefepime HCl (Maxipime 1gm/50 ml (Pmx)) 50 ml @ 100 mls/hr DAILY IVPB Last administered on 03/22/17 09:32; Admin Dose 100 MLS/HR; Start 03/20/17 at 09:00 Carvedilol (Coreg) 25 mg BID PO Last administered on 03/22/17 09:33; Admin Dose 25 MG; Start 03/20/17 at 21:00 Nifedipine (Procardia Xl) 90 mg BID PO Last administered on 03/22/17 09:33; Admin Dose 90 MG; Start 03/20/17 at 21:00 BRIGHT JACKSON Mar 22, 2017 15:09
--- NOTE | 2017-03-22 18:46 | CONS ---
Date/Time of Note Date/Time of Note DATE: 03/22/17 TIME: 18:44 Assessment/Plan Assessment/Plan Chief Complaint/Hosp Course SUBJECTIVE DATA: The patient is alert, feels good, no fevers, nad MICROBIOLOGY: Blood culture growing Serratia and Staph, tip cx + GNR R fem josephine ANTIMICROBIALS: Vancomycin and cefepime. PHYSICAL EXAMINATION: GENERAL: Well developed, middle-aged, man, who is alert, in no distress. HEENT: Head atraumatic, normocephalic. Sclerae anicteric. Buccal mucosa pink. NECK: Supple. CHEST: Chest rise symmetrical. Breath sounds clear. HEART: S1, S2. ABDOMEN: Soft, bowel sounds present. EXTREMITIES: Without cyanosis. ASSESSMENT: 1. Polymicrobial bacteremia secondary to infected PermCath. 2. End-stage renal disease. 3. Hypertension. PLAN: The patient remains stable, will change Cefepime to Gentamicin, await for tip cx, repeat bld cx in am. DW staff/pt Problems: Consultation Date/Type/Reason Admit Date/Time Mar 19, 2017 at 21:48 Initial Consult Date Type of Consultation: ID Exam/Review of Systems Vital Signs Vitals Vital Signs Date Time Temp Pulse Resp B/P Pulse Ox O2 Delivery O2 Flow Rate FiO2 03/22/17 16:30 79 03/22/17 15:50 98.1 19 118/67 98 03/20/17 10:38 Room Air 03/19/17 20:57 0 Intake and Output 03/21/17 03/21/17 03/22/17 15:00 23:00 07:00 Intake Total 550 ml 750 ml 200 ml Output Total 4500 ml 200 ml Balance -3950 ml 550 ml 200 ml Results Result Diagram: 03/22/17 0628 03/22/17 0628 Results 24 hrs Laboratory Tests Test 03/22/17 06:28 White Blood Count 7.6 # Red Blood Count 2.93 L Hemoglobin 8.8 L Hematocrit 27.5 L Mean Corpuscular Volume 93.9 Mean Corpuscular Hemoglobin 30.0 Mean Corpuscular Hemoglobin Concent 32.0 Red Cell Distribution Width 12.2 Platelet Count 162 Mean Platelet Volume 11.2 H Neutrophils % 69.8 Lymphocytes % 14.7 L Monocytes % 10.8 Eosinophils % 3.7 Basophils % 0.5 Nucleated Red Blood Cells % 0.0 Neutrophils # (Manual) 5.3 Lymphocytes # 1.1 Monocytes # 0.8 Eosinophils # 0.3 Basophils # 0.0 Nucleated Red Blood Cells # 0.0 Sodium Level 137 Potassium Level 4.3 Chloride Level 97 Carbon Dioxide Level 22 Anion Gap 22 #H Blood Urea Nitrogen 79 H Creatinine 17.81 #H Glucose Level 111 # Calcium Level 8.7 Medications Medications Current Medications Ondansetron HCl (Zofran Inj) 4 mg Q6H PRN IV NAUSEA AND/OR VOMITING Last administered on 03/20/17 11:57; Admin Dose 4 MG; Start 03/19/17 at 22:30 Acetaminophen (Tylenol Tab) 650 mg Q6H PRN PO PAIN LEVEL 1-3 OR FEVER; Start at 22:30 Morphine Sulfate (morphine) 2 mg Q4H PRN IV PAIN LEVEL 7-10; Start 03/19/17 at 22:30 Docusate Sodium (Colace) 100 mg Q12H PRN PO CONSTIPATION; Start 03/19/17 at 22: 30 Bisacodyl (Dulcolax) 5 mg DAILY PRN PO CONSTIPATION; Start 03/19/17 at 22:30 Famotidine (Pepcid) 20 mg HS PO Last administered on 03/21/17 20:53; Admin Dose 20 MG; Start 03/19/17 at 22:30 Aspirin (Aspirin) 81 mg DAILY PO Last administered on 03/22/17 09:33; Admin Dose 81 MG; Start 03/20/17 at 09:00 Calcitriol (Rocaltrol) 0.25 mcg DAILY PO Last administered on 03/22/17 09:34; Admin Dose 0.25 MCG; Start 03/20/17 at 09:00 Hydralazine HCl (Apresoline) 50 mg QID PO Last administered on 03/22/17 17:57 ; Admin Dose 50 MG; Start 03/19/17 at 22:30 Lorazepam (Ativan) 1 mg BID PRN PO ANXIETY; Start 03/19/17 at 22:30 Hydralazine HCl 10 mg 10 mg Q4H PRN IV ELEVATED BLOOD PRESSURE; Start 03/19/17 at 22:30 Cefepime HCl (Maxipime 1gm/50 ml (Pmx)) 50 ml @ 100 mls/hr DAILY IVPB Last administered on 03/22/17 09:32; Admin Dose 100 MLS/HR; Start 03/20/17 at 09:00 Carvedilol (Coreg) 25 mg BID PO Last administered on 03/22/17 09:33; Admin Dose 25 MG; Start 03/20/17 at 21:00 Nifedipine (Procardia Xl) 90 mg BID PO Last administered on 03/22/17 09:33; Admin Dose 90 MG; Start 03/20/17 at 21:00 OMAR WARREN NP Mar 22, 2017 18:46
[2017-03-22] MEDS ORDERED: GENTAMICIN IV PER PHARMACY XX SCH (19:00)
--- NOTE | 2017-03-22 20:44 | CONS ---
Date/Time of Note Date/Time of Note DATE: 03/22/17 TIME: 20:13 Consultation Date/Type/Reason Admit Date/Time Mar 19, 2017 at 21:48 Hx of Present Illness CARDIOLOGY CONSULT The patient is a 31 year old male with ESRD who was admitted with fever and diagnosed with infected AV fistula and bacteremia. He was treated with IV antibiotics and recovered. he requires a new AV fistula. Cardiology consultation was requested. HISTORY OF PRESENT ILLNESS: The patient is hemodialysis dependent with right chest Permacath, He was in his usual state of health until yesterday when he developed significant chills and rigors during hemodialysis session. The hemodialysis was stopped and the patient immediately felt better once the catheter was discontinued. He came to the hospital with concern of infected line. The patient came with a temperature of 103.3, pulse 119, respirations 24, blood pressure 190/129, saturation 96 percent on room air. LABORATORY AND DIAGNOSTIC DATA: WBC 3.6, hemoglobin and hematocrit 8.4 and 25.1, platelets 183. Neutrophils 80. Sodium 138, potassium 4.5, normal bilirubin, and LFT. Alk phos 131, albumin 4.5. Blood cultures were sent and preliminary growing gram-negative rods. A chest x-ray revealed mild pulmonary vascular congestion, otherwise no acute process in the chest. The patient was started on vancomycin and cefepime and improved. ALLERGIES: HE IS NOT ALLERGIC TO ANY MEDICATIONS. PAST MEDICAL HISTORY: Past medical history as per history. SOCIAL HISTORY: Patient came from home. Denies smoking, alcohol, illicit drugs. REVIEW OF SYSTEMS: Review of systems as per history of present illness, otherwise all negative. PHYSICAL EXAMINATION: GENERAL: This is a well-nourished, well-developed, middle-aged, man, who is alert, in no distress. HEENT: Head atraumatic, normocephalic. Sclerae anicteric. Buccal mucosa pink. NECK: Supple. CHEST: Rise symmetrical. Breath sounds clear. HEART: S1, S2. ABDOMEN: Soft, bowel sounds present. EXTREMITIES: Without cyanosis, edema. PATIENT IS AFEBRILE AND FEELS WELL. ECHOCARDIOGRAM documents normal size cardiac chambers, normal LV systolic function, normal valves with no vegetations and normal function. RECOMMENDATION: Proceed with planned procedure with mild or minimal cardiac risks based on symptoms and findings. An EKG should be done in AM and reviewed by sawdust machine operator prior to the surgery. ELIZABETH DOZIER MD Social History Alcohol Use: none Smoking Status: Never smoker Drug Use: marijuana Exam/Review of Systems Vital Signs Vitals Vital Signs Date Time Temp Pulse Resp B/P Pulse Ox O2 Delivery O2 Flow Rate FiO2 03/22/17 16:30 79 03/22/17 15:50 98.1 19 118/67 98 03/20/17 10:38 Room Air 03/19/17 20:57 0 Intake and Output 03/21/17 03/21/17 03/22/17 15:00 23:00 07:00 Intake Total 550 ml 750 ml 200 ml Output Total 4500 ml 200 ml Balance -3950 ml 550 ml 200 ml Results Result Diagram: 03/22/1762703/22/17627 Results 24 hrs Laboratory Tests Test 03/22/17 06:28 White Blood Count 7.6 # Red Blood Count 2.93 L Hemoglobin 8.8 L Hematocrit 27.5 L Mean Corpuscular Volume 93.9 Mean Corpuscular Hemoglobin 30.0 Mean Corpuscular Hemoglobin Concent 32.0 Red Cell Distribution Width 12.2 Platelet Count 162 Mean Platelet Volume 11.2 H Neutrophils % 69.8 Lymphocytes % 14.7 L Monocytes % 10.8 Eosinophils % 3.7 Basophils % 0.5 Nucleated Red Blood Cells % 0.0 Neutrophils # (Manual) 5.3 Lymphocytes # 1.1 Monocytes # 0.8 Eosinophils # 0.3 Basophils # 0.0 Nucleated Red Blood Cells # 0.0 Sodium Level 137 Potassium Level 4.3 Chloride Level 97 Carbon Dioxide Level 22 Anion Gap 22 #H Blood Urea Nitrogen 79 H Creatinine 17.81 #H Glucose Level 111 # Calcium Level 8.7 Medications Medications Current Medications Ondansetron HCl (Zofran Inj) 4 mg Q6H PRN IV NAUSEA AND/OR VOMITING Last administered on 03/20/17t 11:57; Admin Dose 4 MG; Start 03/19/17 at 22:30 Acetaminophen (Tylenol Tab) 650 mg Q6H PRN PO PAIN LEVEL 1-3 OR FEVER; Start at 22:30 Morphine Sulfate (morphine) 2 mg Q4H PRN IV PAIN LEVEL 7-10; Start 03/19/17 at 22:30 Docusate Sodium (Colace) 100 mg Q12H PRN PO CONSTIPATION; Start 03/19/17 at 22: 30 Bisacodyl (Dulcolax) 5 mg DAILY PRN PO CONSTIPATION; Start 03/19/17 at 22:30 Famotidine (Pepcid) 20 mg HS PO Last administered on 03/21/17 20:53; Admin Dose 20 MG; Start 03/19/17 at 22:30 Aspirin (Aspirin) 81 mg DAILY PO Last administered on 03/22/17 09:33; Admin Dose 81 MG; Start 03/20/17 at 09:00 Calcitriol (Rocaltrol) 0.25 mcg DAILY PO Last administered on 03/22/17 09:34; Admin Dose 0.25 MCG; Start 03/20/17 at 09:00 Hydralazine HCl (Apresoline) 50 mg QID PO Last administered on 03/22/17 17:57 ; Admin Dose 50 MG; Start 03/19/17 at 22:30 Lorazepam (Ativan) 1 mg BID PRN PO ANXIETY; Start 03/19/17 at 22:30 Hydralazine HCl (Apresoline) 10 mg Q4H PRN IV ELEVATED BLOOD PRESSURE; Start at 22:30 Carvedilol (Coreg) 25 mg BID PO Last administered on 03/22/17 09:33; Admin Dose 25 MG; Start 03/20/17 at 21:00 Nifedipine (Procardia Xl) 90 mg BID PO Last administered on 03/22/17 09:33; Admin Dose 90 MG; Start 03/20/17 at 21:00 Gentamicin Sulfate GENTAMICIN PER PHARMACY NOTE XX ; Start 03/22/17 at 19:00 Gentamicin Sulfate/Sodium Chloride (Gentamicin/NS) 103.25 ml @ 103.25 mls/hr ONCE ONCE IVPB ; Start 03/22/17 at 21:00; Stop 03/22/17 at 21:59 ELIZABETH DOZIER MD Mar 22, 2017 20:41
[2017-03-22] MEDS: FAMOTIDINE 20 MG TAB PO SCH (20:47)
[2017-03-22] MEDS ORDERED: GENTAMICIN IVPB ONE (21:00)
[2017-03-22] MEDS ORDERED: SOD CHLORIDE 0.9% IVPB ONE (21:00)
[2017-03-23] VITALS (20 sets, daily range): BP systolic 120–143; BP diastolic 70–93; PULSE 72–88; RESP 17–20
[2017-03-23 07:05] LABS: BASOPHILS % 0.5 % (0.0-2.0); EOSINOPHILS # 0.3 10^3/ul (0.0-0.5); EOSINOPHILS % 4.2 % (0.0-7.0); HEMATOCRIT 25.4 % (42.0-52.0); LYMPHOCYTES # 1.5 10^3/ul (0.8-2.9); LYMPHOCYTES % 19.5 % (15.0-51.0); MEAN CORPUSCULAR HEMOGLOBIN 29.2 pg (29.0-33.0); MEAN CORPUSCULAR HGB CONC 31.5 g/dl (32.0-37.0); MEAN CORPUSCULAR VOLUME 92.7 fl (82.0-101.0); MEAN PLATELET VOLUME 11.3 fl (7.4-10.4); MONOCYTE # 0.7 10^3/ul (0.3-0.9); MONOCYTES % 9.1 % (0.0-11.0); NEUTROPHILS % 65.8 % (39.0-77.0); PLATELET COUNT 172 10^3/UL (140-415); RED BLOOD COUNT 2.74 10^6/ul (4.70-6.10); RED CELL DISTRIBUTION WIDTH 12.1 % (11.5-14.5); WHITE BLOOD COUNT 7.6 10^3/ul (4.8-10.8)
[2017-03-23 07:35] LABS: CALCIUM 8.9 mg/dl (8.4-10.2); POTASSIUM 4.6 mmol/L (3.5-5.1)
[2017-03-23 07:41] LABS: CREATININE 19.08 mg/dl (0.61-1.24)
[2017-03-23] MEDS: ASPIRIN 81 MG TAB PO SCH (08:49)
[2017-03-23] MEDS: SEVELAMER 800 MG TAB PO SCH ×3 (08:49→17:28)
[2017-03-23] MEDS: CALCITRIOL 0.25 MCG CAP PO SCH (08:49)
[2017-03-23] MEDS: NIFEdipine (XL) 90 MG TAB PO SCH ×2 (08:50→20:53)
--- NOTE | 2017-03-23 10:53 | PN ---
DATE: 03/23/2017 SUBJECTIVE DATA: The patient is receiving hemodialysis, tolerating it well. No other events noted. OBJECTIVE DATA: VITAL SIGNS: Blood pressure is 125/70, respirations 70, temperature 98.5. HEENT: Head is normocephalic. NECK: Supple. HEART: Regular rate. LUNGS: Diminished breath sounds at the base. ABDOMEN: Soft, nontender to palpation. No rebound or guarding. EXTREMITIES: Negative for clubbing, cyanosis. No edema. DERMATOLOGIC: No rashes. MUSCULOSKELETAL: No joint effusion. NEUROLOGIC: Unchanged exam. MEDICATIONS: Reviewed. LABORATORY AND DIAGNOSTIC DATA: Sodium 137, potassium 4.6, BUN 88, creatinine 2.0. White count 10.6, hemoglobin 8.0, hematocrit 25.4, platelet count 172. ASSESSMENT AND PLAN: 1. End-stage renal disease. The patient has currently a temporary dialysis catheter, receiving hemodialysis. 2. Sepsis from line infection. Pending repeat PermCath placement. 3. Hypertension. Continue current blood pressure regimen. 4. Anemia. Continue Epogen with dialysis. 5. Mineral bone disorder. Monitor calcium and phosphorous levels. Continue phos binders. 6. Gastrointestinal and deep venous thrombosis prophylaxis. Dictated By: Ramesh Solis DO /tamiko/alexandre /Document#: [id number]
[2017-03-23] MEDS ORDERED: HEPARIN 1000 UNITS/ML 10 ML INJ CATHETER ONE (11:00)
[2017-03-23] MEDS: GENTAMICIN 80 MG/NS (PMX) 50 ML IVPB SCH (12:37)
--- NOTE | 2017-03-23 15:58 | CONS ---
Date/Time of Note Date/Time of Note DATE: 03/23/17 TIME: 15:53 Assessment/Plan Assessment/Plan Chief Complaint/Hosp Course IMP: 1.Pre-op for AVF creation-NL EF by echo/negative trop x 1 2. HTN 3.anemia 4.ESRD Recc -OK to proceed to OR at overall low to moederate risk without further noninvasive evaluation -Continue current hydralazine/procardia/coreg -HD for volume removal -Continue asa Problems: Consultation Date/Type/Reason Admit Date/Time Mar 19, 2017 at 21:48 Initial Consult Date 03/22/2017 Type of Consultation: cardiology Reason for Consultation Pre-op Referring Provider: LAVERNE TODD MD Exam/Review of Systems Vital Signs Vitals Vital Signs Date Time Temp Pulse Resp B/P Pulse Ox O2 Delivery O2 Flow Rate FiO2 03/23/17 15:50 97.9 69 17 131/85 100 03/20/17 10:38 Room Air 03/19/17 20:57 0 Intake and Output 03/22/17 03/22/17 03/23/17 15:00 23:00 07:00 Intake Total 700 ml 350 ml Balance 700 ml 350 ml Exam Review of Systems: CONSTITUTIONAL: No fevers, chills. PULMONARY: No sob CARDIOVASCULAR: No chest pain/palpitations GASTROINTESTINAL: No nausea/vomiting. GENITOURINARY: No hematuria/dysuria. MUSCULOSKELETAL: No myagias/arthalgias. PSYCHIATRIC: The patient denies depression. NEUROLOGIC: No weakness Constitutional: alert, oriented Head: normocephalic ENMT: mucosa pink and moist Neck: jvd (9 cm water), supple Respiratory: diminished breath sounds (at bases/B) Cardiovascular: regular rate and rhythm Gastrointestinal: non-tender, soft Musculoskeletal: muscle tone (normal) Extremities: edema (none), other (R groin HD catheter) Neurological: other (NOn focal deficits) Results Result Diagram: 03/23/17 0626 03/23/17 0626 Results 24 hrs Laboratory Tests Test 03/23/17 06:26 White Blood Count 7.6 Red Blood Count 2.74 L Hemoglobin 8.0 L Hematocrit 25.4 L Mean Corpuscular Volume 92.7 Mean Corpuscular Hemoglobin 29.2 Mean Corpuscular Hemoglobin Concent 31.5 L Red Cell Distribution Width 12.1 Platelet Count 172 Mean Platelet Volume 11.3 H Neutrophils % 65.8 Lymphocytes % 19.5 Monocytes % 9.1 Eosinophils % 4.2 Basophils % 0.5 Nucleated Red Blood Cells % 0.0 Neutrophils # (Manual) 5.0 Lymphocytes # 1.5 Monocytes # 0.7 Eosinophils # 0.3 Basophils # 0.0 Nucleated Red Blood Cells # 0.0 Sodium Level 137 Potassium Level 4.6 Chloride Level 98 Carbon Dioxide Level 19 L Anion Gap 25 H Blood Urea Nitrogen 88 H Creatinine 19.08 H Glucose Level 85 Calcium Level 8.9 Medications Medications Current Medications Ondansetron HCl (Zofran Inj) 4 mg Q6H PRN IV NAUSEA AND/OR VOMITING Last administered on 03/20/17 11:57; Admin Dose 4 MG; Start 03/19/17 at 22:30 Acetaminophen (Tylenol Tab) 650 mg Q6H PRN PO PAIN LEVEL 1-3 OR FEVER; Start at 22:30 Morphine Sulfate (morphine) 2 mg Q4H PRN IV PAIN LEVEL 7-10; Start 03/19/17 at 22:30 Docusate Sodium (Colace) 100 mg Q12H PRN PO CONSTIPATION; Start 03/19/17 at 22: 30 Bisacodyl (Dulcolax) 5 mg DAILY PRN PO CONSTIPATION; Start 03/19/17 at 22:30 Famotidine (Pepcid) 20 mg HS PO Last administered on 03/22/17 20:47; Admin Dose 20 MG; Start 03/19/17 at 22:30 Aspirin (Aspirin) 81 mg DAILY PO Last administered on 03/23/17 08:49; Admin Dose 81 MG; Start 03/20/17 at 09:00 Calcitriol (Rocaltrol) 0.25 mcg DAILY PO Last administered on 03/23/17 08:49; Admin Dose 0.25 MCG; Start 03/20/17 at 09:00 Hydralazine HCl (Apresoline) 50 mg QID PO Last administered on 03/23/17 12:37 ; Admin Dose 50 MG; Start 03/19/17 at 22:30 Lorazepam (Ativan) 1 mg BID PRN PO ANXIETY; Start 03/19/17 at 22:30 Hydralazine HCl (Apresoline) 10 mg Q4H PRN IV ELEVATED BLOOD PRESSURE; Start at 22:30 Carvedilol (Coreg) 25 mg BID PO Last administered on 03/23/17 08:50; Admin Dose 25 MG; Start 03/20/17 at 21:00 Nifedipine (Procardia Xl) 90 mg BID PO Last administered on 03/22/17 20:47; Admin Dose 90 MG; Start 03/20/17 at 21:00 Gentamicin Sulfate (Gentamicin Iv Per Pharmacy) GENTAMICIN PER PHARMACY NOTE XX ; Start 03/22/17 at 19:00 RADHA BALTAZAR Mar 23, 2017 15:58
--- NOTE | 2017-03-23 19:27 | PN ---
Date/Time of Note Date/Time of Note DATE: 03/23/17 TIME: 19:25 Assessment/Plan VTE Prophylaxis VTE Prophylaxis Intervention: SCD's Lines/Catheters IV [facility] Saline Lock Assessment/Plan Chief Complaint/Hosp Course Assessment and plan 1. Sepsis likely secondary to dialysis catheter. Final blood cultures did show Serratia Marcescens and Staphylococcus species. . Antibiotics per ID. New dialysis catheter in place. Follow-up with vascular surgeon if need for AV fistula. 2. End-stage renal disease. Continue on dialysis per nephrology recommendations. Monitor electrolyte. Stable at present 3. Essential hypertension. Continue antihypertensives as needed. Disposition plan: Continue antibiotics. Continue on dialysis. Follow-up with surgeon for AV fistula placement. Discharge when medically stable Discussed plan of care with Dr. Abdi Problems: Subjective 24 Hr Interval Summary Free Text/Dictation No specific complaints. Appears comfortable at present. Exam/Review of Systems Vital Signs Vitals Vital Signs Date Time Temp Pulse Resp B/P Pulse Ox O2 Delivery O2 Flow Rate FiO2 03/23/17 16:18 72 03/23/17 15:50 97.9 17 131/85 100 03/20/17 10:38 Room Air 03/19/17 20:57 0 Intake and Output 03/22/17 03/22/17 03/23/17 15:00 23:00 07:00 Intake Total 700 ml 350 ml Balance 700 ml 350 ml Exam Constitutional: alert, oriented Eyes: nl conjunctiva Respiratory: clear to auscultation, normal air movement Cardiovascular: regular rate and rhythm Gastrointestinal: nl liver, spleen, soft Musculoskeletal: nl extremities to inspection Extremities: normal pulses Neurological: PRACTICAL NURSING FACULTY II-XII intact, nl mental status, nl speech Results Result Diagram: 03/23/17 0626 03/23/17 0626 Results 24 hrs Laboratory Tests Test 03/23/17 06:26 White Blood Count 7.6 Red Blood Count 2.74 L Hemoglobin 8.0 L Hematocrit 25.4 L Mean Corpuscular Volume 92.7 Mean Corpuscular Hemoglobin 29.2 Mean Corpuscular Hemoglobin Concent 31.5 L Red Cell Distribution Width 12.1 Platelet Count 172 Mean Platelet Volume 11.3 H Neutrophils % 65.8 Lymphocytes % 19.5 Monocytes % 9.1 Eosinophils % 4.2 Basophils % 0.5 Nucleated Red Blood Cells % 0.0 Neutrophils # (Manual) 5.0 Lymphocytes # 1.5 Monocytes # 0.7 Eosinophils # 0.3 Basophils # 0.0 Nucleated Red Blood Cells # 0.0 Sodium Level 137 Potassium Level 4.6 Chloride Level 98 Carbon Dioxide Level 19 L Anion Gap 25 H Blood Urea Nitrogen 88 H Creatinine 19.08 H Glucose Level 85 Calcium Level 8.9 Medications Medications Current Medications Ondansetron HCl (Zofran Inj) 4 mg Q6H PRN IV NAUSEA AND/OR VOMITING Last administered on 03/20/17 11:57; Admin Dose 4 MG; Start 03/19/17 at 22:30 Acetaminophen (Tylenol Tab) 650 mg Q6H PRN PO PAIN LEVEL 1-3 OR FEVER; Start at 22:30 Morphine Sulfate (morphine) 2 mg Q4H PRN IV PAIN LEVEL 7-10; Start 03/19/17 at 22:30 Docusate Sodium (Colace) 100 mg Q12H PRN PO CONSTIPATION; Start 03/19/17 at 22: 30 Bisacodyl (Dulcolax) 5 mg DAILY PRN PO CONSTIPATION; Start 03/19/17 at 22:30 Famotidine (Pepcid) 20 mg HS PO Last administered on 03/22/17 20:47; Admin Dose 20 MG; Start 03/19/17 at 22:30 Aspirin (Aspirin) 81 mg DAILY PO Last administered on 03/23/17 08:49; Admin Dose 81 MG; Start 03/20/17 at 09:00 Calcitriol (Rocaltrol) 0.25 mcg DAILY PO Last administered on 03/23/17 08:49; Admin Dose 0.25 MCG; Start 03/20/17 at 09:00 Hydralazine HCl (Apresoline) 50 mg QID PO Last administered on 03/23/17 17:28 ; Admin Dose 50 MG; Start 03/19/17 at 22:30 Lorazepam (Ativan) 1 mg BID PRN PO ANXIETY; Start 03/19/17 at 22:30 Hydralazine HCl (Apresoline) 10 mg Q4H PRN IV ELEVATED BLOOD PRESSURE; Start at 22:30 Carvedilol (Coreg) 25 mg BID PO Last administered on 03/23/17 08:50; Admin Dose 25 MG; Start 9/10/17 at 21:00 Nifedipine (Procardia Xl) 90 mg BID PO Last administered on 03/22/17t 20:47; Admin Dose 90 MG; Start 03/20/17 at 21:00 Gentamicin Sulfate (Gentamicin Iv Per Pharmacy) GENTAMICIN PER PHARMACY NOTE XX ; Start 03/22/17 at 19:00 Miscellaneous Information (*Rx Drug Level Order Reminder*) VANCOMYCIN RANDOM LEVEL IN AM ONCE ONCE XX ; Start 03/24/17 at 05:00; Stop 03/24/17 at 05:01 BRIGHT JACKSON Mar 23, 2017 19:26
[2017-03-23] MEDS: FAMOTIDINE 20 MG TAB PO SCH (20:53)
--- NOTE | 2017-03-23 20:55 | PN ---
DATE: 03/23/2017 SUBJECTIVE DATA: No events overnight. No fevers. Patient is sleeping in hemodialysis. Looks comfortable. MICROBIOLOGY: Blood culture grew Serratia marcescens and coag- negative Staph species. Catheter tip culture growing Serratia marcescens and Staph species. ANTIMICROBIALS: Patient is on: 1. Gentamicin. 2. Vancomycin. INDWELLINGS: Right femoral Adebayo. OBJECTIVE DATA: GENERAL: This is a well-developed, well-nourished, middle-aged man, who is in no distress. HEENT: Head atraumatic, normocephalic. Sclerae anicteric. Buccal mucosa pink. NECK: Supple. Trachea midline. CHEST: Rise symmetrical. Breath sounds clear. HEART: S1, S2. ABDOMEN: Soft, bowel sounds present. EXTREMITIES: Without cyanosis. ASSESSMENT: 1. Line sepsis, status post PermCath removed, now with temporary Adebayo catheter. 2. End-stage renal disease. PLAN: Patient remains stable. We are going to order repeat blood cultures today. Continue him on current antibiotics. Once culture negative, patient may have PermCath placement. Dictated By: Kal Weber NP /tamiko/vitor /Document#: [id number]
[2017-03-24] VITALS (13 sets, daily range): BP systolic 111–144; BP diastolic 63–85; PULSE 71–83; RESP 17–21
[2017-03-24 06:48] LABS: BASOPHIL # 0.1 10^3/ul (0.0-0.1); BASOPHILS % 0.6 % (0.0-2.0); EOSINOPHILS # 0.4 10^3/ul (0.0-0.5); EOSINOPHILS % 5.3 % (0.0-7.0); HEMATOCRIT 27.4 % (42.0-52.0); HEMOGLOBIN 8.6 g/dl (14.0-18.0); LYMPHOCYTES # 2.1 10^3/ul (0.8-2.9); LYMPHOCYTES % 25.3 % (15.0-51.0); MEAN CORPUSCULAR HEMOGLOBIN 28.9 pg (29.0-33.0); MEAN CORPUSCULAR HGB CONC 31.4 g/dl (32.0-37.0); MEAN CORPUSCULAR VOLUME 91.9 fl (82.0-101.0); MONOCYTE # 0.7 10^3/ul (0.3-0.9); MONOCYTES % 8.8 % (0.0-11.0); NEUTROPHIL # 4.7 10^3/ul (1.6-7.5); NEUTROPHILS % 58.4 % (39.0-77.0); PLATELET COUNT 223 10^3/UL (140-415); RED BLOOD COUNT 2.98 10^6/ul (4.70-6.10); WHITE BLOOD COUNT 8.1 10^3/ul (4.8-10.8)
[2017-03-24 07:12] LABS: CALCIUM 9.2 mg/dl (8.4-10.2); POTASSIUM 4.1 mmol/L (3.5-5.1)
[2017-03-24 07:48] LABS: CREATININE 14.29 mg/dl (0.61-1.24)
--- NOTE | 2017-03-24 08:28 | PN ---
Date/Time of Note Date/Time of Note DATE: 03/24/17 TIME: 08:27 Assessment/Plan Lines/Catheters IV Catheter Type (from [facility]): Saline Lock Assessment/Plan Chief Complaint/Hosp Course -End-stage renal disease and central stenosis/occlusion: The patient's right chest wall catheter may be infected - Culture resulted: SERRATIA MARCESCENS & COAGULASE NEGATIVE STAPh -S/P removal of right CWC -S/P Right groin Adebayo catheter and Bilateral upper extremity venograms -Recommend awaiting new blood cultures that are negative prior to placement of a new perm catheter -The patient has a complex issue in that he has central stenosis/occlusion and upper extremity fistula creation may be challenging. Will need to discuss the risks and benefits with the patient prior to intervention -Bilateral upper extremity vein mapping evaluated and some options are present -Discussed findings, plan and management with the patient, and he understands. A certified custodial worker was present. -Optimize vascular status (blood pressure meds, diet, nutrition, exercise, sugar control, antiplatelets). -Thank you for allowing us to partake in the care of your patient. Please call with any questions. Problems: Subjective 24 Hr Interval Summary no new vascular events overnight Exam/Review of Systems Vital Signs Vitals Vital Signs Date Time Temp Pulse Resp B/P Pulse Ox O2 Delivery O2 Flow Rate FiO2 03/24/17 07:33 98.4 76 21 144/84 99 03/20/17 10:38 Room Air Intake and Output 03/23/17 03/23/17 03/24/17 15:00 23:00 07:00 Intake Total 300 ml 950 ml 300 ml Output Total 3300 ml 1 ml Balance -3000 ml 949 ml 300 ml Exam Free Text/Dictation GENERAL APPEARANCE: Alert, oriented x3. RESPIRATORY: Clear to auscultation bilaterally. CARDIAC: S1, S2 present. ABDOMEN: Soft, nontender, nondistended. Bowel sounds positive. EXTREMITIES: Lower extremities, palpable femoral pulse. Palpable pedal pulse. Motor and sensory intact. Capillary refill 2-3 seconds. Bilateral upper extremities, palpable right brachial pulse. Motor and sensory intact. Capillary refill 2-3 seconds. Right groin catheter intact Results Result Diagram: 03/24/17 0609 03/24/17 0609 LAVERNE TODD MD Mar 24, 2017 08:28
[2017-03-24] MEDS: CALCITRIOL 0.25 MCG CAP PO SCH (08:45)
[2017-03-24] MEDS: SEVELAMER 800 MG TAB PO SCH ×3 (08:45→17:59)
[2017-03-24] MEDS: ASPIRIN 81 MG TAB PO SCH (08:46)
[2017-03-24] MEDS: NIFEdipine (XL) 90 MG TAB PO SCH ×2 (08:47→20:25)
--- NOTE | 2017-03-24 10:51 | PN ---
DATE: 03/24/2017 SUBJECTIVE DATA: The patient is stable. No events overnight. Had hemodialysis yesterday, tolerated well. OBJECTIVE DATA: VITAL SIGNS: Blood pressure 144/84, respirations 21, pulse 96, temperature 98.4. HEENT: Head is normocephalic. NECK: Supple. HEART: Regular rate. LUNGS: Show diminished breath sounds at the base. ABDOMEN: Soft, nontender to palpation. No rebound or guarding. EXTREMITIES: Negative for clubbing, cyanosis. No edema. DERMATOLOGIC: Clean. No rashes. MUSCULOSKELETAL: No joint effusion. NEUROLOGIC: No change in exam. MEDICATIONS: Reviewed. LABORATORY AND DIAGNOSTIC DATA: Shows sodium 138, potassium 4.1, chloride 99, BUN 58, creatinine 14.29. White count 8.1, hemoglobin 8.6, platelet count 223. ASSESSMENT AND PLAN: 1. End-stage renal disease. Patient had hemodialysis yesterday. Plan for dialysis tomorrow. 2. Sepsis and line infection. Patient is currently on antibiotics. Repeat cultures have been negative. 3. Hypertension. Continue current blood pressure regimen. 4. Anemia. Monitor H and H levels. Continue Epogen. 5. Mineral bone disorder. Monitor calcium and phosphorus levels. Continue phos binders. 6. Gastrointestinal and deep venous thrombosis prophylaxes. Dictated By: Ramesh Solis DO /[email or web address] /Document#: [id number]
--- NOTE | 2017-03-24 11:11 | RADRPT ---
Vent Rate: 67 bpm RR Interval: 0 msec RI Interval: 176 msec QRS Duration: 92 msec QT Interval: 428 msec QTC Interval: 452 msec P-R-T Kuna: 62 - 47 - 0 degrees Normal sinus rhythm T wave abnormality, consider inferolateral ischemia Abnormal ECG Electronically Signed By: Isidro Bahena [id number]
--- NOTE | 2017-03-24 14:49 | CONS ---
Date/Time of Note Date/Time of Note DATE: 03/24/17 TIME: 14:47 Assessment/Plan Assessment/Plan Chief Complaint/Hosp Course SUBJECTIVE DATA: The patient is alert, feels good, no fevers, nad MICROBIOLOGY: Blood culture and tip cx growing Serratia and Staph R fem josephine ANTIMICROBIALS: Vancomycin and Gentamicin. PHYSICAL EXAMINATION: GENERAL: Well developed, middle-aged, man, who is alert, in no distress. HEENT: Head atraumatic, normocephalic. Sclerae anicteric. Buccal mucosa pink. NECK: Supple. CHEST: Chest rise symmetrical. Breath sounds clear. HEART: S1, S2. ABDOMEN: Soft, bowel sounds present. EXTREMITIES: Without cyanosis. ASSESSMENT: 1. Polymicrobial bacteremia secondary to infected PermCath. 2. End-stage renal disease. 3. Hypertension. PLAN: The patient remains stable, repeat bld cx 03/21 negative, continue abx, f/ u vascular rec-s, f/u bld cx sent yesterday. DW staff/pt Problems: Consultation Date/Type/Reason Admit Date/Time Mar 19, 2017 at 21:48 Type of Consultation: ID Referring Provider: LAVERNE TODD MD Exam/Review of Systems Vital Signs Vitals Vital Signs Date Time Temp Pulse Resp B/P Pulse Ox O2 Delivery O2 Flow Rate FiO2 03/24/17 12:16 98.4 84 19 111/65 97 03/20/17 10:38 Room Air Intake and Output 03/23/17 03/23/17 03/24/17 15:00 23:00 07:00 Intake Total 300 ml 950 ml 300 ml Output Total 3300 ml 1 ml Balance -3000 ml 949 ml 300 ml Results Result Diagram: 03/24/17 0609 03/24/17 0609 Results 24 hrs Laboratory Tests Test 03/24/17 06:06 03/24/17 06:09 Random Vancomycin Level 21.1 White Blood Count 8.1 Red Blood Count 2.98 L Hemoglobin 8.6 L Hematocrit 27.4 L Mean Corpuscular Volume 91.9 Mean Corpuscular Hemoglobin 28.9 L Mean Corpuscular Hemoglobin Concent 31.4 L Red Cell Distribution Width 12.0 Platelet Count 223 # Mean Platelet Volume 11.0 H Neutrophils % 58.4 Lymphocytes % 25.3 Monocytes % 8.8 Eosinophils % 5.3 Basophils % 0.6 Nucleated Red Blood Cells % 0.0 Neutrophils # 4.7 Lymphocytes # 2.1 Monocytes # 0.7 Eosinophils # 0.4 Basophils # 0.1 Nucleated Red Blood Cells # 0.0 Sodium Level 138 Potassium Level 4.1 Chloride Level 99 Carbon Dioxide Level 22 Anion Gap 21 H Blood Urea Nitrogen 58 #H Creatinine 14.29 #H Glucose Level 85 Calcium Level 9.2 Medications Medications Current Medications Ondansetron HCl (Zofran Inj) 4 mg Q6H PRN IV NAUSEA AND/OR VOMITING Last administered on 03/20/17 11:57; Admin Dose 4 MG; Start 03/19/17 at 22:30 Acetaminophen (Tylenol Tab) 650 mg Q6H PRN PO PAIN LEVEL 1-3 OR FEVER; Start at 22:30 Morphine Sulfate (morphine) 2 mg Q4H PRN IV PAIN LEVEL 7-10; Start 03/19/17 at 22:30 Docusate Sodium (Colace) 100 mg Q12H PRN PO CONSTIPATION; Start 03/19/17 at 22: 30 Bisacodyl (Dulcolax) 5 mg DAILY PRN PO CONSTIPATION; Start 03/19/17 at 22:30 Famotidine (Pepcid) 20 mg HS PO Last administered on 03/23/17 20:53; Admin Dose 20 MG; Start 03/19/17 at 22:30 Aspirin (Aspirin) 81 mg DAILY PO Last administered on 03/24/17 08:46; Admin Dose 81 MG; Start 03/20/17 at 09:00 Calcitriol (Rocaltrol) 0.25 mcg DAILY PO Last administered on 03/24/17 08:45; Admin Dose 0.25 MCG; Start 03/20/17 at 09:00 Hydralazine HCl (Apresoline) 50 mg QID PO Last administered on 03/24/17 12:28 ; Admin Dose 50 MG; Start 03/19/17 at 22:30 Lorazepam (Ativan) 1 mg BID PRN PO ANXIETY; Start 03/19/17 at 22:30 Hydralazine HCl (Apresoline) 10 mg Q4H PRN IV ELEVATED BLOOD PRESSURE; Start at 22:30 Carvedilol (Coreg) 25 mg BID PO Last administered on 03/24/17 08:46; Admin Dose 25 MG; Start 03/20/17 at 21:00 Nifedipine (Procardia Xl) 90 mg BID PO Last administered on 03/24/17 08:47; Admin Dose 90 MG; Start 03/20/17 at 21:00 Gentamicin Sulfate (Gentamicin Iv Per Pharmacy) GENTAMICIN PER PHARMACY NOTE XX ; Start 03/22/17 at 19:00 OMAR WARREN NP Mar 24, 2017 14:49
--- NOTE | 2017-03-24 15:40 | PN ---
Date/Time of Note Date/Time of Note DATE: 03/24/17 TIME: 15:34 Assessment/Plan VTE Prophylaxis VTE Prophylaxis Intervention: SCD's Lines/Catheters IV [facility]from [facility] Saline Lock Assessment/Plan Chief Complaint/Hosp Course Assessment and plan 1. Sepsis likely secondary to dialysis catheter. Final blood cultures did show Serratia Marcescens and Staphylococcus species. . Antibiotics per ID. New dialysis catheter in place. Follow-up with vascular surgeon if need for AV fistula. 2. End-stage renal disease. Continue on dialysis per nephrology recommendations. Monitor electrolyte. Stable at present 3. Essential hypertension. Continue antihypertensives as needed. Disposition plan: Follow up on blood cultures. Await for result. Plan for possible permacath placement once cultures negative Discussed plan of care with Dr. Abdi Problems: Subjective 24 Hr Interval Summary Free Text/Dictation comfortable at this time. no s/s of distress Exam/Review of Systems Vital Signs Vitals Vital Signs Date Time Temp Pulse Resp B/P Pulse Ox O2 Delivery O2 Flow Rate FiO2 03/24/17 12:16 98.4 84 19 111/65 97 03/20/17 10:38 Room Air Intake and Output 03/23/17 03/23/17 03/24/17 15:00 23:00 07:00 Intake Total 300 ml 950 ml 300 ml Output Total 3300 ml 1 ml Balance -3000 ml 949 ml 300 ml Exam Constitutional: alert, oriented Eyes: nl conjunctiva Respiratory: clear to auscultation, normal air movement Cardiovascular: regular rate and rhythm Gastrointestinal: nl liver, spleen, soft Musculoskeletal: nl extremities to inspection Extremities: normal pulses Neurological: FEED MILLER II-XII intact, nl mental status, nl speech Results Result Diagram: 03/24/17 0609 03/24/17 0609 Results 24 hrs Laboratory Tests Test 03/24/17 06:06 03/24/17 06:09 Random Vancomycin Level 21.1 White Blood Count 8.1 Red Blood Count 2.98 L Hemoglobin 8.6 L Hematocrit 27.4 L Mean Corpuscular Volume 91.9 Mean Corpuscular Hemoglobin 28.9 L Mean Corpuscular Hemoglobin Concent 31.4 L Red Cell Distribution Width 12.0 Platelet Count 223 # Mean Platelet Volume 11.0 H Neutrophils % 58.4 Lymphocytes % 25.3 Monocytes % 8.8 Eosinophils % 5.3 Basophils % 0.6 Nucleated Red Blood Cells % 0.0 Neutrophils # 4.7 Lymphocytes # 2.1 Monocytes # 0.7 Eosinophils # 0.4 Basophils # 0.1 Nucleated Red Blood Cells # 0.0 Sodium Level 138 Potassium Level 4.1 Chloride Level 99 Carbon Dioxide Level 22 Anion Gap 21 H Blood Urea Nitrogen 58 #H Creatinine 14.29 #H Glucose Level 85 Calcium Level 9.2 Medications Medications Current Medications Ondansetron HCl (Zofran Inj) 4 mg Q6H PRN IV NAUSEA AND/OR VOMITING Last administered on 03/20/17 11:57; Admin Dose 4 MG; Start 03/19/17 at 22:30 Acetaminophen (Tylenol Tab) 650 mg Q6H PRN PO PAIN LEVEL 1-3 OR FEVER; Start at 22:30 Morphine Sulfate (morphine) 2 mg Q4H PRN IV PAIN LEVEL 7-10; Start 03/19/17 at 22:30 Docusate Sodium (Colace) 100 mg Q12H PRN PO CONSTIPATION; Start 03/19/17 at 22: 30 Bisacodyl (Dulcolax) 5 mg DAILY PRN PO CONSTIPATION; Start 03/19/17 at 22:30 Famotidine (Pepcid) 20 mg HS PO Last administered on 03/23/17 20:53; Admin Dose 20 MG; Start 03/19/17 at 22:30 Aspirin (Aspirin) 81 mg DAILY PO Last administered on 03/24/17 08:46; Admin Dose 81 MG; Start 03/20/17 at 09:00 Calcitriol (Rocaltrol) 0.25 mcg DAILY PO Last administered on 03/24/17 08:45; Admin Dose 0.25 MCG; Start 03/20/17 at 09:00 Hydralazine HCl (Apresoline) 50 mg QID PO Last administered on 03/24/17 12:28 ; Admin Dose 50 MG; Start 03/19/17 at 22:30 Lorazepam (Ativan) 1 mg BID PRN PO ANXIETY; Start 03/19/17 at 22:30 Hydralazine HCl (Apresoline) 10 mg Q4H PRN IV ELEVATED BLOOD PRESSURE; Start at 22:30 Carvedilol (Coreg) 25 mg BID PO Last administered on 03/24/17 08:46; Admin Dose 25 MG; Start 03/20/17 at 21:00 Nifedipine (Procardia Xl) 90 mg BID PO Last administered on 03/24/17t 08:47; Admin Dose 90 MG; Start 03/20/17 at 21:00 Gentamicin Sulfate (Gentamicin Iv Per Pharmacy) GENTAMICIN PER PHARMACY NOTE XX ; Start 03/22/17 at 19:00 BRIGHT JACKSON Mar 24, 2017 15:40
[2017-03-24] MEDS: FAMOTIDINE 20 MG TAB PO SCH (20:25)
--- NOTE | 2017-03-24 21:17 | CONS ---
Date/Time of Note Date/Time of Note DATE: 03/24/17 TIME: 21:15 Assessment/Plan Assessment/Plan Chief Complaint/Hosp Course IMP: 1.Pre-op for AVF creation-NL EF by echo/negative trop x 1 2. HTN 3.anemia 4.ESRD Recc -OK to proceed to OR at overall low to moederate risk without further noninvasive evaluation -Continue current procardia/coreg and will make slight decrease to hydralazine as being held -HD for volume removal -Continue asa -F/U cx data and continue antibiotics Problems: Consultation Date/Type/Reason Admit Date/Time Mar 19, 2017 at 21:48 Initial Consult Date 03/22/2017 Type of Consultation: cardiology Reason for Consultation preop/HTN Referring Provider: LAVERNE TODD MD Exam/Review of Systems Vital Signs Vitals Vital Signs Date Time Temp Pulse Resp B/P Pulse Ox O2 Delivery O2 Flow Rate FiO2 03/24/17 20:22 79 03/24/17 19:27 98.4 17 119/69 98 03/20/17 10:38 Room Air Intake and Output 03/23/17 03/23/17 03/24/17 15:00 23:00 07:00 Intake Total 300 ml 950 ml 300 ml Output Total 3300 ml 1 ml Balance -3000 ml 949 ml 300 ml Exam Review of Systems: CONSTITUTIONAL: No fevers, chills. PULMONARY: No sob CARDIOVASCULAR: No chest pain/palpitations GASTROINTESTINAL: No nausea/vomiting. GENITOURINARY: No hematuria/dysuria. MUSCULOSKELETAL: No myagias/arthalgias. PSYCHIATRIC: The patient denies depression. NEUROLOGIC: No weakness Constitutional: alert, oriented Psych: no complaints Head: normocephalic ENMT: mucosa pink and moist Neck: jvd (9 cm water), supple Respiratory: clear to auscultation Cardiovascular: regular rate and rhythm Gastrointestinal: non-tender, soft Musculoskeletal: muscle tone (normal) Extremities: edema (none) Neurological: other (NO focal deficits) Results Result Diagram: 03/24/17 0609 03/24/17 0609 Results 24 hrs Laboratory Tests Test 03/24/17 06:06 03/24/17 06:09 Random Vancomycin Level 21.1 White Blood Count 8.1 Red Blood Count 2.98 L Hemoglobin 8.6 L Hematocrit 27.4 L Mean Corpuscular Volume 91.9 Mean Corpuscular Hemoglobin 28.9 L Mean Corpuscular Hemoglobin Concent 31.4 L Red Cell Distribution Width 12.0 Platelet Count 223 # Mean Platelet Volume 11.0 H Neutrophils % 58.4 Lymphocytes % 25.3 Monocytes % 8.8 Eosinophils % 5.3 Basophils % 0.6 Nucleated Red Blood Cells % 0.0 Neutrophils # 4.7 Lymphocytes # 2.1 Monocytes # 0.7 Eosinophils # 0.4 Basophils # 0.1 Nucleated Red Blood Cells # 0.0 Sodium Level 138 Potassium Level 4.1 Chloride Level 99 Carbon Dioxide Level 22 Anion Gap 21 H Blood Urea Nitrogen 58 #H Creatinine 14.29 #H Glucose Level 85 Calcium Level 9.2 Medications Medications Current Medications Ondansetron HCl (Zofran Inj) 4 mg Q6H PRN IV NAUSEA AND/OR VOMITING Last administered on 03/20/17 11:57; Admin Dose 4 MG; Start 03/19/17 at 22:30 Acetaminophen (Tylenol Tab) 650 mg Q6H PRN PO PAIN LEVEL 1-3 OR FEVER; Start at 22:30 Morphine Sulfate (morphine) 2 mg Q4H PRN IV PAIN LEVEL 7-10; Start 03/19/17 at 22:30 Docusate Sodium (Colace) 100 mg Q12H PRN PO CONSTIPATION; Start 03/19/17 at 22: 30 Bisacodyl (Dulcolax) 5 mg DAILY PRN PO CONSTIPATION; Start 03/19/17 at 22:30 Famotidine (Pepcid) 20 mg HS PO Last administered on 03/24/17 20:25; Admin Dose 20 MG; Start 03/19/17 at 22:30 Aspirin (Aspirin) 81 mg DAILY PO Last administered on 03/24/17 08:46; Admin Dose 81 MG; Start 03/20/17 at 09:00 Calcitriol (Rocaltrol) 0.25 mcg DAILY PO Last administered on 03/24/17 08:45; Admin Dose 0.25 MCG; Start 03/20/17 at 09:00 Hydralazine HCl (Apresoline) 50 mg QID PO Last administered on 03/24/17 18:00 ; Admin Dose 50 MG; Start 03/19/17 at 22:30 Lorazepam (Ativan) 1 mg BID PRN PO ANXIETY; Start 03/19/17 at 22:30 Hydralazine HCl (Apresoline) 10 mg Q4H PRN IV ELEVATED BLOOD PRESSURE; Start at 22:30 Carvedilol (Coreg) 25 mg BID PO Last administered on 03/24/17 20:26; Admin Dose 25 MG; Start 03/20/17 at 21:00 Nifedipine (Procardia Xl) 90 mg BID PO Last administered on 03/24/17 20:25; Admin Dose 90 MG; Start 03/20/17 at 21:00 Gentamicin Sulfate GENTAMICIN PER PHARMACY NOTE XX ; Start 03/22/17 at 19:00 Vancomycin HCl (Vancocin) 250 ml @ 125 mls/hr 10 IVPB ; Start 03/25/17 at 10:00 ; Stop 03/25/17 at 12:00 RADHA BALTAZAR Mar 24, 2017 21:17
[2017-03-25] VITALS (18 sets, daily range): BP systolic 111–155; BP diastolic 66–96; PULSE 68–93; RESP 17–20
[2017-03-25 07:50] LABS: BASOPHIL # 0.1 10^3/ul (0.0-0.1); BASOPHILS % 0.6 % (0.0-2.0); EOSINOPHILS # 0.5 10^3/ul (0.0-0.5); EOSINOPHILS % 5.8 % (0.0-7.0); HEMATOCRIT 27.5 % (42.0-52.0); HEMOGLOBIN 8.9 g/dl (14.0-18.0); LYMPHOCYTES # 2.1 10^3/ul (0.8-2.9); LYMPHOCYTES % 25.3 % (15.0-51.0); MEAN CORPUSCULAR HEMOGLOBIN 30.2 pg (29.0-33.0); MEAN CORPUSCULAR HGB CONC 32.4 g/dl (32.0-37.0); MEAN CORPUSCULAR VOLUME 93.2 fl (82.0-101.0); MEAN PLATELET VOLUME 10.7 fl (7.4-10.4); MONOCYTE # 0.7 10^3/ul (0.3-0.9); MONOCYTES % 8.1 % (0.0-11.0); NEUTROPHIL # 4.7 10^3/ul (1.6-7.5); NEUTROPHILS % 57.6 % (39.0-77.0); PLATELET COUNT 245 10^3/UL (140-415); RED BLOOD COUNT 2.95 10^6/ul (4.70-6.10); RED CELL DISTRIBUTION WIDTH 11.9 % (11.5-14.5); WHITE BLOOD COUNT 8.2 10^3/ul (4.8-10.8)
[2017-03-25 08:08] LABS: CALCIUM 9.1 mg/dl (8.4-10.2); POTASSIUM 4.6 mmol/L (3.5-5.1)
[2017-03-25 08:22] LABS: CREATININE 17.22 mg/dl (0.61-1.24)
[2017-03-25] MEDS: CALCITRIOL 0.25 MCG CAP PO SCH (09:00)
[2017-03-25] MEDS: SEVELAMER 800 MG TAB PO SCH ×3 (09:24→19:02)
[2017-03-25] MEDS: ASPIRIN 81 MG TAB PO SCH (09:25)
[2017-03-25] MEDS ORDERED: VANCOMYCIN 1 GM in NS 250 ML IVPB SCH (10:00)
--- NOTE | 2017-03-25 11:15 | PN ---
DATE: 03/25/2017 SUBJECTIVE DATA: The patient is currently on hemodialysis, tolerating well. No other events noted. OBJECTIVE DATA: VITAL SIGNS: Blood pressure 112/70, temperature 97.8, respiration 18. HEENT: Head is normocephalic. NECK: Supple. HEART: Regular rate. LUNGS: Show diminished breath sounds at the base. ABDOMEN: Soft, nontender to palpation. No rebound or guarding. EXTREMITIES: Negative for clubbing, cyanosis. No edema. DERMATOLOGIC: Clean. No rashes. MUSCULOSKELETAL: No joint effusion. NEUROLOGIC: Unchanged exam. MEDICATIONS: Reviewed. LABORATORY DATA: Shows a white count 8.2, hemoglobin 8.9, hematocrit 27.5, platelet count 245,000. Sodium 136, BUN 71, creatinine 17.22. ASSESSMENT AND PLAN: 1. End-stage renal disease. Patient is on hemodialysis, tolerating well. Anticipate next dialysis in 1-2 days. 2. Sepsis secondary to line infection. The patient is currently on antibiotics. Repeat culture has been negative. 3. Hypertension. Continue current blood pressure regimen. 4. Anemia. Monitor hemoglobin and hematocrit levels. 5. Mineral bone disorder. Monitor calcium and phosphorus levels. 6. access. The patient currently has a temporary catheter pending Perma-Cath placement and AV fistula by . 7. Gastrointestinal and deep venous thrombosis prophylaxis. Dictated By: Ramesh Solis DO /[email or web address]/mook /Document#: [id number]
[2017-03-25] MEDS: NIFEdipine (XL) 90 MG TAB PO SCH ×2 (12:00→21:22)
[2017-03-25] MEDS: GENTAMICIN 80 MG/NS (PMX) 50 ML IVPB SCH (14:41)
[2017-03-25] MEDS: EPOETIN 10000 UNITS/1 ML INJ (ESRD) SC SCH (14:41)
--- NOTE | 2017-03-25 15:07 | CONS ---
Date/Time of Note Date/Time of Note DATE: 03/25/17 TIME: 15:05 Assessment/Plan Assessment/Plan Additional Assessment/Plan 1.Pre-op for AVF creation-NL EF by echo/negative trop x 1 - OK to proceed to OR at overall low to moederate risk without further noninvasive evaluation 2. HTN - modest Rx, will adjust Rxa s needed 3.anemia - H/H stable - no bleeding now 4.ESRD - on HD, con't to keep euvolemic. 5. Infection - on anti-Bx, will monitor now Consultation Date/Type/Reason Admit Date/Time Mar 19, 2017 at 21:48 Initial Consult Date Type of Consultation: cardiology Referring Provider: LAVERNE TODD MD 24 HR Interval Summary Free Text/Dictation NO acute events - awaiting AVF - OK to proceed to OR at overall low to moederate risk without further noninvasive evaluation ROS: No fever, no chills, no nausea, no vomiting, no diarrhea/constipation No recent weight changes No chest pain, no PND, no orthopnea No dizziness, blurred vision No thirst, no heat or cold intolerance Exam/Review of Systems Vital Signs Vitals Vital Signs Date Time Temp Pulse Resp B/P Pulse Ox O2 Delivery O2 Flow Rate FiO2 03/25/17 13:24 93 03/25/17 11:44 98.0 18 145/96 98 Intake and Output 03/24/17 03/24/17 03/25/17 15:00 23:00 07:00 Intake Total 600 ml 450 ml Balance 600 ml 450 ml Exam General: WN/WD/NAD, AOx 3 HEENT: Unicetric/atraumatic/EOMI (follow commands) NECK: JVD elevated, no thyromegaly Lymph: no lymphadenopathy HEART: regular with no S3, II/ systolic murmur at apex LUNGS: Coarse sounds ABD: soft, NT, ND, +BS : Intact Neuro: non focal SKIN: chronic changes EXT: trace edema Results Result Diagram: 03/25/17 0643 03/25/17 0643 Results 24 hrs Laboratory Tests Test 03/25/17 06:43 White Blood Count 8.2 Red Blood Count 2.95 L Hemoglobin 8.9 L Hematocrit 27.5 L Mean Corpuscular Volume 93.2 Mean Corpuscular Hemoglobin 30.2 Mean Corpuscular Hemoglobin Concent 32.4 Red Cell Distribution Width 11.9 Platelet Count 245 Mean Platelet Volume 10.7 H Neutrophils % 57.6 Lymphocytes % 25.3 Monocytes % 8.1 Eosinophils % 5.8 Basophils % 0.6 Nucleated Red Blood Cells % 0.0 Neutrophils # 4.7 Lymphocytes # 2.1 Monocytes # 0.7 Eosinophils # 0.5 Basophils # 0.1 Nucleated Red Blood Cells # 0.0 Sodium Level 136 Potassium Level 4.6 Chloride Level 99 Carbon Dioxide Level 21 Anion Gap 21 H Blood Urea Nitrogen 71 H Creatinine 17.22 #H Glucose Level 85 Calcium Level 9.1 Medications Medications Current Medications Ondansetron HCl (Zofran Inj) 4 mg Q6H PRN IV NAUSEA AND/OR VOMITING Last administered on 03/20/17 11:57; Admin Dose 4 MG; Start 03/19/17 at 22:30 Acetaminophen (Tylenol Tab) 650 mg Q6H PRN PO PAIN LEVEL 1-3 OR FEVER; Start at 22:30 Morphine Sulfate (morphine) 2 mg Q4H PRN IV PAIN LEVEL 7-10; Start 03/19/17 at 22:30 Docusate Sodium (Colace) 100 mg Q12H PRN PO CONSTIPATION; Start 03/19/17 at 22: 30 Bisacodyl (Dulcolax) 5 mg DAILY PRN PO CONSTIPATION; Start 03/19/17 at 22:30 Famotidine (Pepcid) 20 mg HS PO Last administered on 03/24/17 20:25; Admin Dose 20 MG; Start 03/19/17 at 22:30 Aspirin (Aspirin) 81 mg DAILY PO Last administered on 03/25/17 09:25; Admin Dose 81 MG; Start 03/20/17 at 09:00 Calcitriol (Rocaltrol) 0.25 mcg DAILY PO Last administered on 03/25/17 09:00; Admin Dose 0.25 MCG; Start 03/20/17 at 09:00 Hydralazine HCl (Apresoline) 50 mg QID PO Last administered on 03/25/17 12:13 ; Admin Dose 50 MG; Start 03/19/17 at 22:30 Lorazepam (Ativan) 1 mg BID PRN PO ANXIETY; Start 03/19/17 at 22:30 Hydralazine HCl (Apresoline) 10 mg Q4H PRN IV ELEVATED BLOOD PRESSURE; Start at 22:30 Carvedilol (Coreg) 25 mg BID PO Last administered on 03/25/17 12:14; Admin Dose 25 MG; Start 03/20/17 at 21:00 Nifedipine (Procardia Xl) 90 mg BID PO Last administered on 03/25/17 12:00; Admin Dose 90 MG; Start 03/20/17 at 21:00 Gentamicin Sulfate (Gentamicin Iv Per Pharmacy) GENTAMICIN PER PHARMACY NOTE XX ; Start 03/22/17 at 19:00 BLAKE LENTZ MD Mar 25, 2017 15:07
--- NOTE | 2017-03-25 15:53 | PN ---
Date/Time of Note Date/Time of Note DATE: 03/25/17 TIME: 15:50 Assessment/Plan VTE Prophylaxis VTE Prophylaxis Intervention: SCD's Lines/Catheters IV Catheter Type (from Nrsg): Saline Lock Assessment/Plan Assessment/Plan 1. Sepsis likely secondary to line sepsis from HD catheter- Final blood cultures did show Serratia Marcescens and Staphylococcus species.- s/p removal of permacath, dillon has josephine catheter 2. End-stage renal disease. Continue on dialysis per nephrology recommendations. Monitor electrolyte. Stable at present, plan for HD today 3. Essential hypertension. Continue antihypertensives as needed. Disposition plan: Pt will need reinsertion of permacath for outpatietn HD access , will have Nephrology and ID to decide about it when pt can have renacatDillon levi follow up blood cx on 03/23/17- no growth to date yet SCD For DVT prophylaxis Subjective 24 Hr Interval Summary Free Text/Dictation pt remained afebrile, BP stable, Dillon has temporary josephine HD catheter Exam/Review of Systems Vital Signs Vitals Vital Signs Date Time Temp Pulse Resp B/P Pulse Ox O2 Delivery O2 Flow Rate FiO2 03/25/17 13:24 93 03/25/17 11:44 98.0 18 145/96 98 Intake and Output 03/24/17 03/24/17 03/25/17 15:00 23:00 07:00 Intake Total 600 ml 450 ml Balance 600 ml 450 ml Exam Constitutional: alert, oriented Eyes: nl conjunctiva Respiratory: clear to auscultation, normal air movement Cardiovascular: regular rate and rhythm Gastrointestinal: nl liver, spleen, soft Musculoskeletal: nl extremities to inspection Extremities: normal pulses Neurological: [employer] II-XII intact, nl mental status, nl speech Results Result Diagram: 03/25/17 0643 03/25/17 0643 Results 24 hrs Laboratory Tests Test 03/25/17 06:43 White Blood Count 8.2 Red Blood Count 2.95 L Hemoglobin 8.9 L Hematocrit 27.5 L Mean Corpuscular Volume 93.2 Mean Corpuscular Hemoglobin 30.2 Mean Corpuscular Hemoglobin Concent 32.4 Red Cell Distribution Width 11.9 Platelet Count 245 Mean Platelet Volume 10.7 H Neutrophils % 57.6 Lymphocytes % 25.3 Monocytes % 8.1 Eosinophils % 5.8 Basophils % 0.6 Nucleated Red Blood Cells % 0.0 Neutrophils # 4.7 Lymphocytes # 2.1 Monocytes # 0.7 Eosinophils # 0.5 Basophils # 0.1 Nucleated Red Blood Cells # 0.0 Sodium Level 136 Potassium Level 4.6 Chloride Level 99 Carbon Dioxide Level 21 Anion Gap 21 H Blood Urea Nitrogen 71 H Creatinine 17.22 #H Glucose Level 85 Calcium Level 9.1 Medications Medications Current Medications Ondansetron HCl (Zofran Inj) 4 mg Q6H PRN IV NAUSEA AND/OR VOMITING Last administered on 03/20/17 11:57; Admin Dose 4 MG; Start 03/19/17 at 22:30 Acetaminophen (Tylenol Tab) 650 mg Q6H PRN PO PAIN LEVEL 1-3 OR FEVER; Start at 22:30 Morphine Sulfate (morphine) 2 mg Q4H PRN IV PAIN LEVEL 7-10; Start 03/19/17 at 22:30 Docusate Sodium (Colace) 100 mg Q12H PRN PO CONSTIPATION; Start 03/19/17 at 22: 30 Bisacodyl (Dulcolax) 5 mg DAILY PRN PO CONSTIPATION; Start 03/19/17 at 22:30 Famotidine (Pepcid) 20 mg HS PO Last administered on 03/24/17 20:25; Admin Dose 20 MG; Start 03/19/17 at 22:30 Aspirin (Aspirin) 81 mg DAILY PO Last administered on 03/25/17 09:25; Admin Dose 81 MG; Start 03/20/17 at 09:00 Calcitriol (Rocaltrol) 0.25 mcg DAILY PO Last administered on 03/25/17 09:00; Admin Dose 0.25 MCG; Start 03/20/17 at 09:00 Hydralazine HCl (Apresoline) 50 mg QID PO Last administered on 03/25/17 12:13 ; Admin Dose 50 MG; Start 03/19/17 at 22:30 Lorazepam (Ativan) 1 mg BID PRN PO ANXIETY; Start 03/19/17 at 22:30 Hydralazine HCl (Apresoline) 10 mg Q4H PRN IV ELEVATED BLOOD PRESSURE; Start at 22:30 Carvedilol (Coreg) 25 mg BID PO Last administered on 03/25/17 12:14; Admin Dose 25 MG; Start 03/20/17 at 21:00 Nifedipine (Procardia Xl) 90 mg BID PO Last administered on 03/25/17t 12:00; Admin Dose 90 MG; Start 03/20/17 at 21:00 Gentamicin Sulfate (Gentamicin Iv Per Pharmacy) GENTAMICIN PER PHARMACY NOTE XX ; Start 03/22/17 at 19:00 ADAM BHAKTA MD Mar 25, 2017 15:53
--- NOTE | 2017-03-25 16:07 | CONS ---
Date/Time of Note Date/Time of Note DATE: 03/25/17 TIME: 16:06 Assessment/Plan Assessment/Plan Chief Complaint/Hosp Course SUBJECTIVE DATA: Aalert, feels good, no fevers, nad MICROBIOLOGY: Blood culture and tip cx growing Serratia and Staph R fem josephine ANTIMICROBIALS: Vancomycin and Gentamicin. PHYSICAL EXAMINATION: GENERAL: Well developed, middle-aged, man, who is alert, in no distress. HEENT: Head atraumatic, normocephalic. Sclerae anicteric. Buccal mucosa pink. NECK: Supple. CHEST: Chest rise symmetrical. Breath sounds clear. HEART: S1, S2. ABDOMEN: Soft, bowel sounds present. EXTREMITIES: Without cyanosis. ASSESSMENT: 1. Polymicrobial bacteremia secondary to infected PermCath. 2. End-stage renal disease. 3. Hypertension. PLAN: The patient remains stable, repeat bld cx negative, continue present care , complete 2 weeks abx, f/u vascular rec-s, ok for p-cath. DW staff DW staff/pt Problems: Consultation Date/Type/Reason Admit Date/Time Mar 19, 2017 at 21:48 Type of Consultation: id Referring Provider: LAVERNE TODD MD Exam/Review of Systems Vital Signs Vitals Vital Signs Date Time Temp Pulse Resp B/P Pulse Ox O2 Delivery O2 Flow Rate FiO2 03/25/17 13:24 93 03/25/17 11:44 98.0 18 145/96 98 Intake and Output 03/24/17 03/24/17 03/25/17 15:00 23:00 07:00 Intake Total 600 ml 450 ml Balance 600 ml 450 ml Results Result Diagram: 03/25/17 0643 03/25/17 0643 Results 24 hrs Laboratory Tests Test 03/25/17 06:43 White Blood Count 8.2 Red Blood Count 2.95 L Hemoglobin 8.9 L Hematocrit 27.5 L Mean Corpuscular Volume 93.2 Mean Corpuscular Hemoglobin 30.2 Mean Corpuscular Hemoglobin Concent 32.4 Red Cell Distribution Width 11.9 Platelet Count 245 Mean Platelet Volume 10.7 H Neutrophils % 57.6 Lymphocytes % 25.3 Monocytes % 8.1 Eosinophils % 5.8 Basophils % 0.6 Nucleated Red Blood Cells % 0.0 Neutrophils # 4.7 Lymphocytes # 2.1 Monocytes # 0.7 Eosinophils # 0.5 Basophils # 0.1 Nucleated Red Blood Cells # 0.0 Sodium Level 136 Potassium Level 4.6 Chloride Level 99 Carbon Dioxide Level 21 Anion Gap 21 H Blood Urea Nitrogen 71 H Creatinine 17.22 #H Glucose Level 85 Calcium Level 9.1 Medications Medications Current Medications Ondansetron HCl (Zofran Inj) 4 mg Q6H PRN IV NAUSEA AND/OR VOMITING Last administered on 03/20/17 11:57; Admin Dose 4 MG; Start 03/19/17 at 22:30 Acetaminophen (Tylenol Tab) 650 mg Q6H PRN PO PAIN LEVEL 1-3 OR FEVER; Start at 22:30 Morphine Sulfate (morphine) 2 mg Q4H PRN IV PAIN LEVEL 7-10; Start 03/19/17 at 22:30 Docusate Sodium (Colace) 100 mg Q12H PRN PO CONSTIPATION; Start 03/19/17 at 22: 30 Bisacodyl (Dulcolax) 5 mg DAILY PRN PO CONSTIPATION; Start 03/19/17 at 22:30 Famotidine (Pepcid) 20 mg HS PO Last administered on 03/24/17 20:25; Admin Dose 20 MG; Start 03/19/17 at 22:30 Aspirin (Aspirin) 81 mg DAILY PO Last administered on 03/25/17 09:25; Admin Dose 81 MG; Start 03/20/17 at 09:00 Calcitriol (Rocaltrol) 0.25 mcg DAILY PO Last administered on 03/25/17 09:00; Admin Dose 0.25 MCG; Start 03/20/17 at 09:00 Hydralazine HCl (Apresoline) 50 mg QID PO Last administered on 03/25/17 12:13 ; Admin Dose 50 MG; Start 03/19/17 at 22:30 Lorazepam (Ativan) 1 mg BID PRN PO ANXIETY; Start 03/19/17 at 22:30 Hydralazine HCl (Apresoline) 10 mg Q4H PRN IV ELEVATED BLOOD PRESSURE; Start at 22:30 Carvedilol (Coreg) 25 mg BID PO Last administered on 03/25/17 12:14; Admin Dose 25 MG; Start 03/20/17 at 21:00 Nifedipine (Procardia Xl) 90 mg BID PO Last administered on 03/25/17 12:00; Admin Dose 90 MG; Start 03/20/17 at 21:00 Gentamicin Sulfate (Gentamicin Iv Per Pharmacy) GENTAMICIN PER PHARMACY NOTE XX ; Start 03/22/17 at 19:00 OMAR WARREN NP Mar 25, 2017 16:07
[2017-03-25] MEDS: FAMOTIDINE 20 MG TAB PO SCH (21:21)
[2017-03-26] VITALS (13 sets, daily range): BP systolic 117–138; BP diastolic 68–92; PULSE 69–86; RESP 17–81
[2017-03-26 07:39] LABS: BASOPHIL # 0.1 10^3/ul (0.0-0.1); BASOPHILS % 0.5 % (0.0-2.0); EOSINOPHILS # 0.5 10^3/ul (0.0-0.5); HEMATOCRIT 27.4 % (42.0-52.0); LYMPHOCYTES # 2.3 10^3/ul (0.8-2.9); LYMPHOCYTES % 24.2 % (15.0-51.0); MEAN CORPUSCULAR HEMOGLOBIN 30.3 pg (29.0-33.0); MEAN CORPUSCULAR HGB CONC 32.8 g/dl (32.0-37.0); MEAN CORPUSCULAR VOLUME 92.3 fl (82.0-101.0); MEAN PLATELET VOLUME 10.5 fl (7.4-10.4); MONOCYTE # 0.9 10^3/ul (0.3-0.9); MONOCYTES % 9.6 % (0.0-11.0); NEUTROPHIL # 5.6 10^3/ul (1.6-7.5); NEUTROPHILS % 57.5 % (39.0-77.0); PLATELET COUNT 287 10^3/UL (140-415); RED BLOOD COUNT 2.97 10^6/ul (4.70-6.10); RED CELL DISTRIBUTION WIDTH 11.9 % (11.5-14.5); WHITE BLOOD COUNT 9.7 10^3/ul (4.8-10.8)
[2017-03-26 08:24] LABS: CALCIUM 9.4 mg/dl (8.4-10.2); CREATININE 12.33 mg/dl (0.61-1.24); POTASSIUM 4.1 mmol/L (3.5-5.1)
[2017-03-26] MEDS: SEVELAMER 800 MG TAB PO SCH ×3 (08:49→17:47)
[2017-03-26] MEDS: CALCITRIOL 0.25 MCG CAP PO SCH (08:50)
[2017-03-26] MEDS: ASPIRIN 81 MG TAB PO SCH (08:50)
--- NOTE | 2017-03-26 12:35 | PN ---
Date/Time of Note Date/Time of Note DATE: 03/26/17 TIME: 12:34 Assessment/Plan VTE Prophylaxis VTE Prophylaxis Intervention: other Lines/Catheters [facility] Saline Lock Assessment/Plan Chief Complaint/Hosp Course SUBJECTIVE DATA: last hd was yesterday, no complaints. No other events noted. OBJECTIVE DATA: HEENT: Head is normocephalic. NECK: Supple. HEART: Regular rate. LUNGS: Show diminished breath sounds at the base. ABDOMEN: Soft, nontender to palpation. No rebound or guarding. EXTREMITIES: Negative for clubbing, cyanosis. No edema. DERMATOLOGIC: Clean. No rashes. MUSCULOSKELETAL: No joint effusion. NEUROLOGIC: Unchanged exam. MEDICATIONS: Reviewed. ASSESSMENT AND PLAN: 1. End-stage renal disease. Patient is on hemodialysis, tolerating well. Anticipate next dialysis in 1-2 days. 2. Sepsis secondary to line infection. The patient is currently on antibiotics. Repeat culture has been negative. 3. Hypertension. Continue current blood pressure regimen. 4. Anemia. Monitor hemoglobin and hematocrit levels. 5. Mineral bone disorder. Monitor calcium and phosphorus levels. 6. hd access. The patient currently has a temporary catheter pending Perma-Cath placement and AV fistula by Problems: Exam/Review of Systems Vital Signs Vitals Vital Signs Date Time Temp Pulse Resp B/P Pulse Ox O2 Delivery O2 Flow Rate FiO2 03/26/17 12:15 69 03/26/17 11:58 97.7 18 138/92 97 Intake and Output 03/25/17 03/25/17 03/26/17 15:00 23:00 07:00 Intake Total 500 ml Output Total 3500 ml Balance -3000 ml Results Result Diagram: 03/26/17 0703/26/17704 Results 24 hrs Laboratory Tests Test 03/26/17 07:05 White Blood Count 9.7 Red Blood Count 2.97 L Hemoglobin 9.0 L Hematocrit 27.4 L Mean Corpuscular Volume 92.3 Mean Corpuscular Hemoglobin 30.3 Mean Corpuscular Hemoglobin Concent 32.8 Red Cell Distribution Width 11.9 Platelet Count 287 Mean Platelet Volume 10.5 H Neutrophils % 57.5 Lymphocytes % 24.2 Monocytes % 9.6 Eosinophils % 5.0 Basophils % 0.5 Nucleated Red Blood Cells % 0.0 Neutrophils # 5.6 Lymphocytes # 2.3 Monocytes # 0.9 Eosinophils # 0.5 Basophils # 0.1 Nucleated Red Blood Cells # 0.0 Sodium Level 141 Potassium Level 4.1 Chloride Level 101 Carbon Dioxide Level 24 Anion Gap 20 H Blood Urea Nitrogen 47 #H Creatinine 12.33 #H Glucose Level 88 Calcium Level 9.4 Medications Medications Current Medications Ondansetron HCl (Zofran Inj) 4 mg Q6H PRN IV NAUSEA AND/OR VOMITING Last administered on 03/20/17 11:57; Admin Dose 4 MG; Start 03/19/17 at 22:30 Acetaminophen (Tylenol Tab) 650 mg Q6H PRN PO PAIN LEVEL 1-3 OR FEVER; Start at 22:30 Morphine Sulfate (morphine) 2 mg Q4H PRN IV PAIN LEVEL 7-10; Start 03/19/17 at 22:30 Docusate Sodium (Colace) 100 mg Q12H PRN PO CONSTIPATION; Start 03/19/17 at 22: 30 Bisacodyl (Dulcolax) 5 mg DAILY PRN PO CONSTIPATION; Start 03/19/17 at 22:30 Famotidine (Pepcid) 20 mg HS PO Last administered on 03/25/17 21:21; Admin Dose 20 MG; Start 03/19/17 at 22:30 Aspirin (Aspirin) 81 mg DAILY PO Last administered on 03/26/17 08:50; Admin Dose 81 MG; Start 03/20/17 at 09:00 Calcitriol (Rocaltrol) 0.25 mcg DAILY PO Last administered on 03/26/17 08:50; Admin Dose 0.25 MCG; Start 03/20/17 at 09:00 Hydralazine HCl (Apresoline) 50 mg QID PO Last administered on 03/25/17 21:21 ; Admin Dose 50 MG; Start 03/19/17 at 22:30 Lorazepam (Ativan) 1 mg BID PRN PO ANXIETY; Start 03/19/17 at 22:30 Hydralazine HCl (Apresoline) 10 mg Q4H PRN IV ELEVATED BLOOD PRESSURE; Start at 22:30 Carvedilol (Coreg) 25 mg BID PO Last administered on 03/25/17 21:21; Admin Dose 25 MG; Start 03/20/17 at 21:00 Nifedipine (Procardia Xl) 90 mg BID PO Last administered on 03/25/17t 21:22; Admin Dose 90 MG; Start 03/20/17 at 21:00 Gentamicin Sulfate (Gentamicin Iv Per Pharmacy) GENTAMICIN PER PHARMACY NOTE XX ; Start 03/22/17 at 19:00 ZEINA PLASCENCIA DO Mar 26, 2017 12:35
[2017-03-26] MEDS: NIFEdipine (XL) 90 MG TAB PO SCH ×2 (13:45→21:00)
--- NOTE | 2017-03-26 14:26 | CONS ---
Date/Time of Note Date/Time of Note DATE: 03/26/17 TIME: 14:24 Assessment/Plan Assessment/Plan Additional Assessment/Plan 1.Pre-op for AVF creation-NL EF by echo/negative trop x 1 - OK to proceed to OR at overall low to moederate risk without further noninvasive evaluation - no chane now 2. HTN - modest Rx, will adjust Rxa s needed - BP in good range now. 3.Anemia - H/H stable - no bleeding now, will follow 4.ESRD - on HD, con't to keep euvolemic. 5. Infection - on anti-Bx, will monitor now - primary team follows Consultation Date/Type/Reason Admit Date/Time Mar 19, 2017 at 21:48 Type of Consultation: id Referring Provider: LAVERNE TODD MD 24 HR Interval Summary Free Text/Dictation No acute events - BP in good range - NO CP now - will monitor clinically. ROS: No fever, no chills, no nausea, no vomiting, no diarrhea/constipation No recent weight changes No chest pain, no PND, no orthopnea No dizziness, blurred vision No thirst, no heat or cold intolerance Exam/Review of Systems Vital Signs Vitals Vital Signs Date Time Temp Pulse Resp B/P Pulse Ox O2 Delivery O2 Flow Rate FiO2 03/26/17 12:15 69 03/26/17 11:58 97.7 18 138/92 97 Intake and Output 03/25/17 03/25/17 03/26/17 15:00 23:00 07:00 Intake Total 500 ml Output Total 3500 ml Balance -3000 ml Exam General: WN/WD/NAD, AOx 3 HEENT: Unicetric/atraumatic/EOMI (follows commands) NECK: JVD elevated, no thyromegaly Lymph: no lymphadenopathy HEART: regular with no S3, II/ systolic murmur at apex LUNGS: Coarse sounds ABD: soft, NT, ND, +BS : Intact Neuro: non focal SKIN: chronic changes EXT: trace edema Results Result Diagram: 03/26/1770403/26/17704 Results 24 hrs Laboratory Tests Test 03/26/17 07:05 White Blood Count 9.7 Red Blood Count 2.97 L Hemoglobin 9.0 L Hematocrit 27.4 L Mean Corpuscular Volume 92.3 Mean Corpuscular Hemoglobin 30.3 Mean Corpuscular Hemoglobin Concent 32.8 Red Cell Distribution Width 11.9 Platelet Count 287 Mean Platelet Volume 10.5 H Neutrophils % 57.5 Lymphocytes % 24.2 Monocytes % 9.6 Eosinophils % 5.0 Basophils % 0.5 Nucleated Red Blood Cells % 0.0 Neutrophils # 5.6 Lymphocytes # 2.3 Monocytes # 0.9 Eosinophils # 0.5 Basophils # 0.1 Nucleated Red Blood Cells # 0.0 Sodium Level 141 Potassium Level 4.1 Chloride Level 101 Carbon Dioxide Level 24 Anion Gap 20 H Blood Urea Nitrogen 47 #H Creatinine 12.33 #H Glucose Level 88 Calcium Level 9.4 Medications Medications Current Medications Ondansetron HCl (Zofran Inj) 4 mg Q6H PRN IV NAUSEA AND/OR VOMITING Last administered on 03/20/17 11:57; Admin Dose 4 MG; Start 03/19/17 at 22:30 Acetaminophen (Tylenol Tab) 650 mg Q6H PRN PO PAIN LEVEL 1-3 OR FEVER; Start at 22:30 Morphine Sulfate (morphine) 2 mg Q4H PRN IV PAIN LEVEL 7-10; Start 03/19/17 at 22:30 Docusate Sodium (Colace) 100 mg Q12H PRN PO CONSTIPATION; Start 03/19/17 at 22: 30 Bisacodyl (Dulcolax) 5 mg DAILY PRN PO CONSTIPATION; Start 03/19/17 at 22:30 Famotidine (Pepcid) 20 mg HS PO Last administered on 03/25/17 21:21; Admin Dose 20 MG; Start 03/19/17 at 22:30 Aspirin (Aspirin) 81 mg DAILY PO Last administered on 03/26/17 08:50; Admin Dose 81 MG; Start 03/20/17 at 09:00 Calcitriol (Rocaltrol) 0.25 mcg DAILY PO Last administered on 03/26/17 08:50; Admin Dose 0.25 MCG; Start 03/20/17 at 09:00 Hydralazine HCl (Apresoline) 50 mg QID PO Last administered on 03/26/17 13:44 ; Admin Dose 50 MG; Start 03/19/17 at 22:30 Lorazepam (Ativan) 1 mg BID PRN PO ANXIETY; Start 03/19/17 at 22:30 Hydralazine HCl (Apresoline) 10 mg Q4H PRN IV ELEVATED BLOOD PRESSURE; Start at 22:30 Carvedilol (Coreg) 25 mg BID PO Last administered on 03/26/17 12:39; Admin Dose 25 MG; Start 03/20/17 at 21:00 Nifedipine (Procardia Xl) 90 mg BID PO Last administered on 03/26/17 13:45; Admin Dose 90 MG; Start 03/20/17 at 21:00 Gentamicin Sulfate (Gentamicin Iv Per Pharmacy) GENTAMICIN PER PHARMACY NOTE XX ; Start 03/22/17 at 19:00 BLAKE LENTZ MD Mar 26, 2017 14:26
--- NOTE | 2017-03-26 19:47 | PN ---
Date/Time of Note Date/Time of Note DATE: 03/26/17 TIME: 19:24 Assessment/Plan VTE Prophylaxis VTE Prophylaxis Intervention: SCD's Lines/Catheters IV Catheter Type (from [facility] Saline Lock Assessment/Plan Chief Complaint/Hosp Course Assessment and plan 1. Sepsis likely secondary to dialysis catheter. Final blood cultures did show Serratia Marcescens and Staphylococcus species. . Antibiotics per ID. New dialysis catheter in place. repeat blood cultures negative so far. continue with vascular surgeon recommendations. 2. End-stage renal disease. Continue on dialysis per nephrology recommendations. Monitor electrolyte. Stable at present 3. Essential hypertension. Continue antihypertensives as needed. Disposition plan: continue on HD. follow up with vascular surgeon recs. d/c when medically stable and cleared by consultants Discussed plan of care with Dr. Abdi Problems: Subjective 24 Hr Interval Summary Free Text/Dictation Appears comfortable at present. No active signs or symptoms of distress noted at this time. Exam/Review of Systems Vital Signs Vitals Vital Signs Date Time Temp Pulse Resp B/P Pulse Ox O2 Delivery O2 Flow Rate FiO2 03/26/17 17:51 86 03/26/17 16:32 97.8 18 124/79 99 Intake and Output 03/25/17 03/25/17 03/26/17 15:00 23:00 07:00 Intake Total 500 ml Output Total 3500 ml Balance -3000 ml Exam Constitutional: alert, oriented, no s/s of distress Eyes: nl conjunctiva Respiratory: clear to auscultation, normal air movement Cardiovascular: regular rate and rhythm Gastrointestinal: nl liver, spleen, soft Musculoskeletal: nl extremities to inspection Extremities: normal pulses Neurological: PRESENTATION SPECIALIST II-XII intact, nl mental status, nl speech Results Result Diagram: 03/26/1770403/26/17704 Results 24 hrs Laboratory Tests Test 03/26/17 07:05 White Blood Count 9.7 Red Blood Count 2.97 L Hemoglobin 9.0 L Hematocrit 27.4 L Mean Corpuscular Volume 92.3 Mean Corpuscular Hemoglobin 30.3 Mean Corpuscular Hemoglobin Concent 32.8 Red Cell Distribution Width 11.9 Platelet Count 287 Mean Platelet Volume 10.5 H Neutrophils % 57.5 Lymphocytes % 24.2 Monocytes % 9.6 Eosinophils % 5.0 Basophils % 0.5 Nucleated Red Blood Cells % 0.0 Neutrophils # 5.6 Lymphocytes # 2.3 Monocytes # 0.9 Eosinophils # 0.5 Basophils # 0.1 Nucleated Red Blood Cells # 0.0 Sodium Level 141 Potassium Level 4.1 Chloride Level 101 Carbon Dioxide Level 24 Anion Gap 20 H Blood Urea Nitrogen 47 #H Creatinine 12.33 #H Glucose Level 88 Calcium Level 9.4 Medications Medications Current Medications Ondansetron HCl (Zofran Inj) 4 mg Q6H PRN IV NAUSEA AND/OR VOMITING Last administered on 03/20/17 11:57; Admin Dose 4 MG; Start 03/19/17 at 22:30 Acetaminophen (Tylenol Tab) 650 mg Q6H PRN PO PAIN LEVEL 1-3 OR FEVER; Start at 22:30 Morphine Sulfate (morphine) 2 mg Q4H PRN IV PAIN LEVEL 7-10; Start 03/19/17 at 22:30 Docusate Sodium (Colace) 100 mg Q12H PRN PO CONSTIPATION; Start 03/19/17 at 22: 30 Bisacodyl (Dulcolax) 5 mg DAILY PRN PO CONSTIPATION; Start 03/19/17 at 22:30 Famotidine (Pepcid) 20 mg HS PO Last administered on 03/25/17 21:21; Admin Dose 20 MG; Start 03/19/17 at 22:30 Aspirin (Aspirin) 81 mg DAILY PO Last administered on 03/26/17 08:50; Admin Dose 81 MG; Start 03/20/17 at 09:00 Calcitriol (Rocaltrol) 0.25 mcg DAILY PO Last administered on 03/26/17 08:50; Admin Dose 0.25 MCG; Start 03/20/17 at 09:00 Hydralazine HCl (Apresoline) 50 mg QID PO Last administered on 03/26/17 17:47 ; Admin Dose 50 MG; Start 03/19/17 at 22:30 Lorazepam (Ativan) 1 mg BID PRN PO ANXIETY; Start 03/19/17 at 22:30 Hydralazine HCl (Apresoline) 10 mg Q4H PRN IV ELEVATED BLOOD PRESSURE; Start at 22:30 Carvedilol (Coreg) 25 mg BID PO Last administered on 03/26/17 12:39; Admin Dose 25 MG; Start 03/20/17 at 21:00 Nifedipine (Procardia Xl) 90 mg BID PO Last administered on 03/26/17t 13:45; Admin Dose 90 MG; Start 03/20/17 at 21:00 Gentamicin Sulfate (Gentamicin Iv Per Pharmacy) GENTAMICIN PER PHARMACY NOTE XX ; Start 03/22/17 at 19:00 BRIGHT JACKSON Mar 26, 2017 19:34
--- NOTE | 2017-03-26 20:11 | CONS ---
Date/Time of Note Date/Time of Note DATE: 03/26/17 TIME: 20:08 Assessment/Plan Assessment/Plan Chief Complaint/Hosp Course ID PROGRESS NOTE CURRENT ABX: =>Vanco IV + GENT 24H INTERVAL SUMMARY * Clinically stable, calm, resting comfortable, no fevers * No fevers, WBC normalized * Repeat 03/23/17 BCx (-) * Line DC'd tip (+) WOUND CULTURE Final Organism 1 SERRATIA MARCESCENS QUANTITY . Organism 2 COAGULASE NEGATIVE STAPH QUANTITY ISOLATED FROM BROTH ONLY S MARCESCE COAG NEG M.I.C. RX M.I.C. RX --------- --- --------- --- CEFAZOLIN S CEFOTAXIME S CIPROFLOXACIN <=0.25 S <=0.5 S CLINDAMYCIN <=0.25 S DOXYCYCLINE S ERYTHROMYCIN >=8 R GENTAMICIN <=1 S IMIPENEM R LEVOFLOXACIN <=0.12 S <=0.12 S OXACILLIN <=0.25 S PENICILLIN-G >=0.5 R RIFAMPIN <=0.5 S VANCOMYCIN <=0.5 S TOBRAMYCIN <=1 S TRIMETHOPRIM/SULFAMETHOXAZOLE <=20 S <=10 S PIPERACILLIN/TAZOBACTAM S EXAM GEN: VSS, NAD HEENT: Unremarkable NECK: supple CVS: RRR CHEST: Equal chest rise bilaterally without dyspnea on observation ABD: Soft, NT, EXT: warm SKIN: No rash, no diaphoresis ID ASSESSMENT 31 yo M admit with: 1. Polymicrobial bacteremia secondary to infected PermCath=> Now removed * Repeat BCx 03/23/17 (-) 2. End-stage renal disease. 3. Hypertension. CURRENT ABX: =>Vanco IV + GENT ID RECOMMENDATIONS 1. Continue current IV ABX 14 days 2. Patient cleared for new PermCath as repeat BCx are (-) . Problems: Consultation Date/Type/Reason Admit Date/Time Mar 19, 2017 at 21:48 Initial Consult Date Type of Consultation: id Referring Provider: LAVERNE TODD MD Exam/Review of Systems Vital Signs Vitals Vital Signs Date Time Temp Pulse Resp B/P Pulse Ox O2 Delivery O2 Flow Rate FiO2 03/26/17 17:51 86 03/26/17 16:32 97.8 18 124/79 99 Intake and Output 03/25/17 03/25/17 03/26/17 15:00 23:00 07:00 Intake Total 500 ml Output Total 3500 ml Balance -3000 ml Results Result Diagram: 03/26/17 0705 03/26/17 0705 Results 24 hrs Laboratory Tests Test 03/26/17 07:05 White Blood Count 9.7 Red Blood Count 2.97 L Hemoglobin 9.0 L Hematocrit 27.4 L Mean Corpuscular Volume 92.3 Mean Corpuscular Hemoglobin 30.3 Mean Corpuscular Hemoglobin Concent 32.8 Red Cell Distribution Width 11.9 Platelet Count 287 Mean Platelet Volume 10.5 H Neutrophils % 57.5 Lymphocytes % 24.2 Monocytes % 9.6 Eosinophils % 5.0 Basophils % 0.5 Nucleated Red Blood Cells % 0.0 Neutrophils # 5.6 Lymphocytes # 2.3 Monocytes # 0.9 Eosinophils # 0.5 Basophils # 0.1 Nucleated Red Blood Cells # 0.0 Sodium Level 141 Potassium Level 4.1 Chloride Level 101 Carbon Dioxide Level 24 Anion Gap 20 H Blood Urea Nitrogen 47 #H Creatinine 12.33 #H Glucose Level 88 Calcium Level 9.4 Medications Medications Current Medications Ondansetron HCl (Zofran Inj) 4 mg Q6H PRN IV NAUSEA AND/OR VOMITING Last administered on 03/20/17t 11:57; Admin Dose 4 MG; Start 03/19/17 at 22:30 Acetaminophen (Tylenol Tab) 650 mg Q6H PRN PO PAIN LEVEL 1-3 OR FEVER; Start at 22:30 Morphine Sulfate (morphine) 2 mg Q4H PRN IV PAIN LEVEL 7-10; Start 03/19/17 at 22:30 Docusate Sodium (Colace) 100 mg Q12H PRN PO CONSTIPATION; Start 03/19/17 at 22: 30 Bisacodyl (Dulcolax) 5 mg DAILY PRN PO CONSTIPATION; Start 03/19/17 at 22:30 Famotidine (Pepcid) 20 mg HS PO Last administered on 03/25/17 21:21; Admin Dose 20 MG; Start 03/19/17 at 22:30 Aspirin (Aspirin) 81 mg DAILY PO Last administered on 03/26/17 08:50; Admin Dose 81 MG; Start 03/20/17 at 09:00 Calcitriol (Rocaltrol) 0.25 mcg DAILY PO Last administered on 03/26/17 08:50; Admin Dose 0.25 MCG; Start 03/20/17 at 09:00 Hydralazine HCl (Apresoline) 50 mg QID PO Last administered on 03/26/17 17:47 ; Admin Dose 50 MG; Start 03/19/17 at 22:30 Lorazepam (Ativan) 1 mg BID PRN PO ANXIETY; Start 03/19/17 at 22:30 Hydralazine HCl (Apresoline) 10 mg Q4H PRN IV ELEVATED BLOOD PRESSURE; Start at 22:30 Carvedilol (Coreg) 25 mg BID PO Last administered on 03/26/17 12:39; Admin Dose 25 MG; Start 03/20/17 at 21:00 Nifedipine (Procardia Xl) 90 mg BID PO Last administered on 03/26/17 13:45; Admin Dose 90 MG; Start 03/20/17 at 21:00 Gentamicin Sulfate (Gentamicin Iv Per Pharmacy) GENTAMICIN PER PHARMACY NOTE XX ; Start 03/22/17 at 19:00 CLAYTON LOPEZ NP Mar 26, 2017 20:11
[2017-03-26] MEDS: FAMOTIDINE 20 MG TAB PO SCH (21:00)
[2017-03-27] VITALS (19 sets, daily range): BP systolic 98–180; BP diastolic 56–100; PULSE 71–85; RESP 15–20
[2017-03-27] MEDS: SEVELAMER 800 MG TAB PO SCH ×3 (08:48→18:08)
--- NOTE | 2017-03-27 10:26 | PN ---
Date/Time of Note Date/Time of Note DATE: 03/27/17 TIME: 10:25 Assessment/Plan VTE Prophylaxis VTE Prophylaxis Intervention: other Lines/Catheters IV Catheter Type (from Nrsg): Saline Lock Assessment/Plan Chief Complaint/Hosp Course SUBJECTIVE DATA: last hd was 2 days ago. no complaints. No other events noted. OBJECTIVE DATA: HEENT: Head is normocephalic. NECK: Supple. HEART: Regular rate. LUNGS: Show diminished breath sounds at the base. ABDOMEN: Soft, nontender to palpation. No rebound or guarding. EXTREMITIES: Negative for clubbing, cyanosis. No edema. DERMATOLOGIC: Clean. No rashes. MUSCULOSKELETAL: No joint effusion. NEUROLOGIC: Unchanged exam. MEDICATIONS: Reviewed. ASSESSMENT AND PLAN: 1. End-stage renal disease. continue intermittent HD 2. Sepsis secondary to line infection. The patient is currently on antibiotics. Repeat culture has been negative. 3. Hypertension. Continue current blood pressure regimen. 4. Anemia. Monitor hemoglobin and hematocrit levels. 5. Mineral bone disorder. Monitor calcium and phosphorus levels. 6. hd access. The patient currently has a temporary catheter pending Perma-Cath placement and AV fistula by Problems: Exam/Review of Systems Vital Signs Vitals Vital Signs Date Time Temp Pulse Resp B/P Pulse Ox O2 Delivery O2 Flow Rate FiO2 03/27/17 08:21 76 03/27/17 08:17 98.3 17 130/78 99 Intake and Output 03/26/17 03/26/17 03/27/17 15:00 23:00 07:00 Intake Total 400 ml Balance 400 ml Results Result Diagram: 03/26/17 0705 03/26/17 0705 Medications Medications Current Medications Ondansetron HCl (Zofran Inj) 4 mg Q6H PRN IV NAUSEA AND/OR VOMITING Last administered on 03/20/17t 11:57; Admin Dose 4 MG; Start 03/19/17 at 22:30 Acetaminophen (Tylenol Tab) 650 mg Q6H PRN PO PAIN LEVEL 1-3 OR FEVER; Start at 22:30 Morphine Sulfate (morphine) 2 mg Q4H PRN IV PAIN LEVEL 7-10; Start 03/19/17 at 22:30 Docusate Sodium (Colace) 100 mg Q12H PRN PO CONSTIPATION; Start 03/19/17 at 22: 30 Bisacodyl (Dulcolax) 5 mg DAILY PRN PO CONSTIPATION; Start 03/19/17 at 22:30 Famotidine (Pepcid) 20 mg HS PO Last administered on 03/26/17 21:00; Admin Dose 20 MG; Start 03/19/17 at 22:30 Aspirin (Aspirin) 81 mg DAILY PO Last administered on 03/26/17 08:50; Admin Dose 81 MG; Start 03/20/17 at 09:00 Calcitriol (Rocaltrol) 0.25 mcg DAILY PO Last administered on 03/26/17 08:50; Admin Dose 0.25 MCG; Start 03/20/17 at 09:00 Hydralazine HCl (Apresoline) 50 mg QID PO Last administered on 03/26/17 21:00 ; Admin Dose 50 MG; Start 03/19/17 at 22:30 Lorazepam (Ativan) 1 mg BID PRN PO ANXIETY; Start 03/19/17 at 22:30 Hydralazine HCl (Apresoline) 10 mg Q4H PRN IV ELEVATED BLOOD PRESSURE; Start at 22:30 Carvedilol (Coreg) 25 mg BID PO Last administered on 03/26/17 21:01; Admin Dose 25 MG; Start 03/20/17 at 21:00 Nifedipine (Procardia Xl) 90 mg BID PO Last administered on 03/26/17 21:00; Admin Dose 90 MG; Start 03/20/17 at 21:00 Gentamicin Sulfate (Gentamicin Iv Per Pharmacy) GENTAMICIN PER PHARMACY NOTE XX ; Start 03/22/17 at 19:00 ZEINA PLASCENCIA DO Mar 27, 2017 10:25
--- NOTE | 2017-03-27 12:28 | PN ---
Date/Time of Note Date/Time of Note DATE: 03/27/17 TIME: 12:26 Assessment/Plan VTE Prophylaxis VTE Prophylaxis Intervention: SCD's Lines/Catheters IV Catheter Type (from Nrsg): Saline Lock Assessment/Plan Chief Complaint/Hosp Course Assessment and plan 1. Sepsis likely secondary to dialysis catheter. Final blood cultures did show Serratia Marcescens and Staphylococcus species. . Antibiotics per ID. New dialysis catheter in place. repeat blood cultures negative so far. continue with vascular surgeon recommendations for permacath placement 2. End-stage renal disease. Continue on dialysis per nephrology recommendations. Monitor electrolyte. Stable at present 3. Essential hypertension. Continue antihypertensives as needed. Disposition plan: continue on HD. Follow up with surgeon for permacath placement. d/c when cleared by consultants Discussed plan of care with Dr. Abdi Problems: Exam/Review of Systems Vital Signs Vitals Vital Signs Date Time Temp Pulse Resp B/P Pulse Ox O2 Delivery O2 Flow Rate FiO2 03/27/17 12:18 80 03/27/17 12:12 98.6 17 131/90 99 Intake and Output 03/26/17 03/26/17 03/27/17 15:00 23:00 07:00 Intake Total 400 ml Balance 400 ml Exam Constitutional: alert, oriented, no s/s of distress Eyes: nl conjunctiva Respiratory: clear to auscultation, normal air movement Cardiovascular: regular rate and rhythm Gastrointestinal: nl liver, spleen, soft Musculoskeletal: nl extremities to inspection Extremities: normal pulses Neurological: [employer] 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[employer]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 II-XII intact, nl mental status, nl speech Results Result Diagram: 03/26/1770403/26/17704 Medications Medications Current Medications Ondansetron HCl (Zofran Inj) 4 mg Q6H PRN IV NAUSEA AND/OR VOMITING Last administered on 03/20/17t 11:57; Admin Dose 4 MG; Start 03/19/17 at 22:30 Acetaminophen (Tylenol Tab) 650 mg Q6H PRN PO PAIN LEVEL 1-3 OR FEVER; Start at 22:30 Morphine Sulfate (morphine) 2 mg Q4H PRN IV PAIN LEVEL 7-10; Start 03/19/17 at 22:30 Docusate Sodium (Colace) 100 mg Q12H PRN PO CONSTIPATION; Start 03/19/17 at 22: 30 Bisacodyl (Dulcolax) 5 mg DAILY PRN PO CONSTIPATION; Start 03/19/17 at 22:30 Famotidine (Pepcid) 20 mg HS PO Last administered on 03/26/17 21:00; Admin Dose 20 MG; Start 03/19/17 at 22:30 Aspirin (Aspirin) 81 mg DAILY PO Last administered on 03/26/17 08:50; Admin Dose 81 MG; Start 03/20/17 at 09:00 Calcitriol (Rocaltrol) 0.25 mcg DAILY PO Last administered on 03/26/17 08:50; Admin Dose 0.25 MCG; Start 03/20/17 at 09:00 Hydralazine HCl (Apresoline) 50 mg QID PO Last administered on 03/26/17 21:00 ; Admin Dose 50 MG; Start 03/19/17 at 22:30 Lorazepam (Ativan) 1 mg BID PRN PO ANXIETY; Start 03/19/17 at 22:30 Hydralazine HCl (Apresoline) 10 mg Q4H PRN IV ELEVATED BLOOD PRESSURE; Start at 22:30 Carvedilol (Coreg) 25 mg BID PO Last administered on 03/26/17 21:01; Admin Dose 25 MG; Start 03/20/17 at 21:00 Nifedipine (Procardia Xl) 90 mg BID PO Last administered on 03/26/17 21:00; Admin Dose 90 MG; Start 03/20/17 at 21:00 Gentamicin Sulfate (Gentamicin Iv Per Pharmacy) GENTAMICIN PER PHARMACY NOTE XX ; Start 03/22/17 at 19:00 BRIGHT JACKSON Mar 27, 2017 12:28
--- NOTE | 2017-03-27 13:27 | CONS ---
Date/Time of Note Date/Time of Note DATE: 03/27/17 TIME: 13:26 Assessment/Plan Assessment/Plan Additional Assessment/Plan 1.Pre-op for AVF creation-NL EF by echo/negative trop x 1 - OK to proceed to OR at overall low to moederate risk without further noninvasive evaluation - no chane now - VASCULAR tetam follows 2. HTN - modest Rx, will adjust Rxa s needed - BP in good range now. 3.Anemia - H/H stable - no bleeding now, will follow 4.ESRD - on HD, con't to keep euvolemic. 5. Infection - on anti-Bx, will monitor now - primary team follows Consultation Date/Type/Reason Admit Date/Time Mar 19, 2017 at 21:48 Type of Consultation: id Referring Provider: LAVERNE TODD MD 24 HR Interval Summary Free Text/Dictation no change now - VASCULAR team follows \ ROS: No fever, no chills, no nausea, no vomiting, no diarrhea/constipation No recent weight changes No chest pain, no PND, no orthopnea No dizziness, blurred vision No thirst, no heat or cold intolerance Exam/Review of Systems Vital Signs Vitals Vital Signs Date Time Temp Pulse Resp B/P Pulse Ox O2 Delivery O2 Flow Rate FiO2 03/27/17 12:18 80 03/27/17 12:12 98.6 17 131/90 99 Intake and Output 03/26/17 03/26/17 03/27/17 15:00 23:00 07:00 Intake Total 400 ml Balance 400 ml Exam General: WN/WD/NAD, AOx 3 HEENT: Unicetric/atraumatic/EOMI (follow commands) NECK: JVD elevated, no thyromegaly Lymph: no lymphadenopathy HEART: regular with no S3, II/ systolic murmur at apex LUNGS: Coarse sounds ABD: soft, NT, ND, +BS : Intact Neuro: non focal SKIN: chronic changes EXT: trace edema Results Result Diagram: 03/26/1770403/26/17704 Medications Medications Current Medications Ondansetron HCl (Zofran Inj) 4 mg Q6H PRN IV NAUSEA AND/OR VOMITING Last administered on 03/20/17t 11:57; Admin Dose 4 MG; Start 03/19/17 at 22:30 Acetaminophen (Tylenol Tab) 650 mg Q6H PRN PO PAIN LEVEL 1-3 OR FEVER; Start at 22:30 Morphine Sulfate (morphine) 2 mg Q4H PRN IV PAIN LEVEL 7-10; Start 03/19/17 at 22:30 Docusate Sodium (Colace) 100 mg Q12H PRN PO CONSTIPATION; Start 03/19/17 at 22: 30 Bisacodyl (Dulcolax) 5 mg DAILY PRN PO CONSTIPATION; Start 03/19/17 at 22:30 Famotidine (Pepcid) 20 mg HS PO Last administered on 03/26/17 21:00; Admin Dose 20 MG; Start 03/19/17 at 22:30 Aspirin (Aspirin) 81 mg DAILY PO Last administered on 03/26/17 08:50; Admin Dose 81 MG; Start 03/20/17 at 09:00 Calcitriol (Rocaltrol) 0.25 mcg DAILY PO Last administered on 03/26/17 08:50; Admin Dose 0.25 MCG; Start 03/20/17 at 09:00 Hydralazine HCl (Apresoline) 50 mg QID PO Last administered on 03/26/17 21:00 ; Admin Dose 50 MG; Start 03/19/17 at 22:30 Lorazepam (Ativan) 1 mg BID PRN PO ANXIETY; Start 03/19/17 at 22:30 Hydralazine HCl (Apresoline) 10 mg Q4H PRN IV ELEVATED BLOOD PRESSURE; Start at 22:30 Carvedilol (Coreg) 25 mg BID PO Last administered on 03/26/17 21:01; Admin Dose 25 MG; Start 03/20/17 at 21:00 Nifedipine (Procardia Xl) 90 mg BID PO Last administered on 03/26/17 21:00; Admin Dose 90 MG; Start 03/20/17 at 21:00 Gentamicin Sulfate (Gentamicin Iv Per Pharmacy) GENTAMICIN PER PHARMACY NOTE XX ; Start 03/22/17 at 19:00 BLAKE LENTZ MD Mar 27, 2017 13:27
--- NOTE | 2017-03-27 13:55 | CONS ---
Date/Time of Note Date/Time of Note DATE: 03/27/17 TIME: 13:53 Assessment/Plan Assessment/Plan Chief Complaint/Hosp Course ID PROGRESS NOTE CURRENT ABX: =>Vanco IV + GENT 24H INTERVAL SUMMARY * No new issues, doing well, no complaints offered * No fevers, WBC normalized * Repeat 03/23/17 BCx (-) * Line DC'd tip (+) WOUND CULTURE Final Organism 1 SERRATIA MARCESCENS Organism 2 COAGULASE NEGATIVE STAPH EXAM GEN: VSS, NAD HEENT: Unremarkable NECK: supple CVS: RRR CHEST: Equal chest rise bilaterally without dyspnea on observation ABD: Soft, NT, EXT: warm SKIN: No rash, no diaphoresis ID ASSESSMENT 31 yo M admit with: 1. Polymicrobial bacteremia secondary to infected PermCath=> Now removed * POLYMicrobial septicemia => resolved SERRATIA MARCESCENS + COAGULASE NEGATIVE STAPH * Repeat BCx 03/23/17 (-) 2. End-stage renal disease. 3. Hypertension. CURRENT ABX: =>Vanco IV + GENT ID RECOMMENDATIONS 1. Continue current IV ABX 14 days 2. Patient cleared for new PermCath as repeat BCx are (-) . Problems: Consultation Date/Type/Reason Admit Date/Time Mar 19, 2017 at 21:48 Type of Consultation: id Referring Provider: LAVERNE TODD MD Exam/Review of Systems Vital Signs Vitals Vital Signs Date Time Temp Pulse Resp B/P Pulse Ox O2 Delivery O2 Flow Rate FiO2 03/27/17 12:18 80 03/27/17 12:12 98.6 17 131/90 99 Intake and Output 03/26/17 03/26/17 03/27/17 15:00 23:00 07:00 Intake Total 400 ml Balance 400 ml Results Result Diagram: 03/26/17 0703/26/17 07 Medications Medications Current Medications Ondansetron HCl (Zofran Inj) 4 mg Q6H PRN IV NAUSEA AND/OR VOMITING Last administered on 03/20/17t 11:57; Admin Dose 4 MG; Start 03/19/17 at 22:30 Acetaminophen (Tylenol Tab) 650 mg Q6H PRN PO PAIN LEVEL 1-3 OR FEVER; Start at 22:30 Morphine Sulfate (morphine) 2 mg Q4H PRN IV PAIN LEVEL 7-10; Start 03/19/17 at 22:30 Docusate Sodium (Colace) 100 mg Q12H PRN PO CONSTIPATION; Start 03/19/17 at 22: 30 Bisacodyl (Dulcolax) 5 mg DAILY PRN PO CONSTIPATION; Start 03/19/17 at 22:30 Famotidine (Pepcid) 20 mg HS PO Last administered on 03/26/17 21:00; Admin Dose 20 MG; Start 03/19/17 at 22:30 Aspirin (Aspirin) 81 mg DAILY PO Last administered on 03/26/17 08:50; Admin Dose 81 MG; Start 03/20/17 at 09:00 Calcitriol (Rocaltrol) 0.25 mcg DAILY PO Last administered on 03/26/17 08:50; Admin Dose 0.25 MCG; Start 03/20/17 at 09:00 Hydralazine HCl (Apresoline) 50 mg QID PO Last administered on 03/26/17 21:00 ; Admin Dose 50 MG; Start 03/19/17 at 22:30 Lorazepam (Ativan) 1 mg BID PRN PO ANXIETY; Start 03/19/17 at 22:30 Hydralazine HCl (Apresoline) 10 mg Q4H PRN IV ELEVATED BLOOD PRESSURE; Start at 22:30 Carvedilol (Coreg) 25 mg BID PO Last administered on 03/26/17 21:01; Admin Dose 25 MG; Start 03/20/17 at 21:00 Nifedipine (Procardia Xl) 90 mg BID PO Last administered on 03/26/17 21:00; Admin Dose 90 MG; Start 03/20/17 at 21:00 Gentamicin Sulfate (Gentamicin Iv Per Pharmacy) GENTAMICIN PER PHARMACY NOTE XX ; Start 03/22/17 at 19:00 CLAYTON LOPEZ NP Mar 27, 2017 13:55
[2017-03-27] MEDS: CALCITRIOL 0.25 MCG CAP PO SCH (16:07)
[2017-03-27] MEDS: ASPIRIN 81 MG TAB PO SCH (16:08)
[2017-03-27] MEDS: NIFEdipine (XL) 90 MG TAB PO SCH ×2 (16:09→21:00)
[2017-03-27] MEDS: EPOETIN 10000 UNITS/1 ML INJ (ESRD) SC SCH (18:25)
[2017-03-27] MEDS: GENTAMICIN 80 MG/NS (PMX) 50 ML IVPB SCH (18:28)
[2017-03-27] MEDS: FAMOTIDINE 20 MG TAB PO SCH (20:36)
[2017-03-28] VITALS (18 sets, daily range): BP systolic 113–156; BP diastolic 62–100; PULSE 57–74; RESP 10–24
[2017-03-28] MEDS: SEVELAMER 800 MG TAB PO SCH ×3 (07:51→18:26)
[2017-03-28] MEDS: NIFEdipine (XL) 90 MG TAB PO SCH ×2 (08:12→21:10)
--- NOTE | 2017-03-28 10:27 | HPN ---
Date/Time of Note Date/Time of Note DATE: 03/28/17 TIME: 10:27 Interval H&P Admission Note Pt. seen H&P reviewed: No system changes LAVERNE TODD MD Mar 28, 2017 10:27
--- NOTE | 2017-03-28 11:22 | PN ---
Date/Time of Note Date/Time of Note DATE: 03/28/17 TIME: 11:21 Assessment/Plan VTE Prophylaxis VTE Prophylaxis Intervention: SCD's Lines/Catheters IV Catheter Type (from Nrs): HOME CATH Urinary Cath still in place: No Assessment/Plan Chief Complaint/Hosp Course 1. Sepsis secondary to dialysis catheter Blood cultures did show Serratia Marcescens and Staphylococcus species ID on the case, continue Gentamicin Repeat blood cultures are negative and patient is cleared by ID for new permacath placement, nephrology to arrange for permacath placement 2. End-stage renal disease. Continue on dialysis per nephrology recommendations. Monitor electrolyte. Stable at present 3. Essential hypertension. Continue antihypertensives as needed. Prophylaxis: SCDs Problems: Subjective 24 Hr Interval Summary Constitutional: no complaints Exam/Review of Systems Vital Signs Vitals Vital Signs Date Time Temp Pulse Resp B/P Pulse Ox O2 Delivery O2 Flow Rate FiO2 03/28/17 08:31 57 03/28/17 08:09 98.2 18 138/92 97 Intake and Output 03/27/17 03/27/17 03/28/17 15:00 23:00 07:00 Intake Total 300 ml 770 ml Output Total 3300 ml Balance -3000 ml 770 ml Exam Constitutional: alert, oriented Respiratory: clear to auscultation Cardiovascular: regular rate and rhythm Gastrointestinal: soft, No distended Musculoskeletal: nl extremities to inspection Results Result Diagram: 03/26/1770403/26/17704 Medications Medications Current Medications Ondansetron HCl (Zofran Inj) 4 mg Q6H PRN IV NAUSEA AND/OR VOMITING Last administered on 03/20/17 11:57; Admin Dose 4 MG; Start 03/19/17 at 22:30 Acetaminophen (Tylenol Tab) 650 mg Q6H PRN PO PAIN LEVEL 1-3 OR FEVER; Start at 22:30 Morphine Sulfate (morphine) 2 mg Q4H PRN IV PAIN LEVEL 7-10; Start 03/19/17 at 22:30 Docusate Sodium (Colace) 100 mg Q12H PRN PO CONSTIPATION; Start 03/19/17 at 22: 30 Bisacodyl (Dulcolax) 5 mg DAILY PRN PO CONSTIPATION; Start 03/19/17 at 22:30 Famotidine (Pepcid) 20 mg HS PO Last administered on 03/27/17 20:36; Admin Dose 20 MG; Start 03/19/17 at 22:30 Aspirin (Aspirin) 81 mg DAILY PO Last administered on 03/27/17 16:08; Admin Dose 81 MG; Start 03/20/17 at 09:00 Calcitriol (Rocaltrol) 0.25 mcg DAILY PO Last administered on 03/27/17 16:07; Admin Dose 0.25 MCG; Start 03/20/17 at 09:00 Hydralazine HCl (Apresoline) 50 mg QID PO Last administered on 03/28/17 08:12 ; Admin Dose 50 MG; Start 03/19/17 at 22:30 Lorazepam (Ativan) 1 mg BID PRN PO ANXIETY; Start 03/19/17 at 22:30 Hydralazine HCl (Apresoline) 10 mg Q4H PRN IV ELEVATED BLOOD PRESSURE; Start at 22:30 Carvedilol (Coreg) 25 mg BID PO Last administered on 03/28/17 08:13; Admin Dose 25 MG; Start 03/20/17 at 21:00 Nifedipine (Procardia Xl) 90 mg BID PO Last administered on 03/28/17 08:12; Admin Dose 90 MG; Start 03/20/17 at 21:00 Gentamicin Sulfate (Gentamicin Iv Per Pharmacy) GENTAMICIN PER PHARMACY NOTE XX ; Start 03/22/17 at 19:00 LOIS MANNING Mar 28, 2017 11:22
[2017-03-28] MEDS ORDERED: GELATIN SIZE 100 SPONGE ONE (12:33)
[2017-03-28] MEDS ORDERED: THROMBIN 5000 UNIT VIAL ONE (12:34)
[2017-03-28] MEDS ORDERED: HEPARIN 1000 UNITS/ML 10 ML INJ ONE ×3 (12:34→15:03)
[2017-03-28] MEDS ORDERED: PROPOFOL 100 ML ONE (12:51)
[2017-03-28] MEDS ORDERED: LIDOCAINE 2% (SDV) 5 ML INJ ONE (12:51)
[2017-03-28] MEDS ORDERED: MIDAZOLAM 1 MG/ML 2 ML INJ ONE (12:51)
--- NOTE | 2017-03-28 13:05 | CONS ---
Date/Time of Note Date/Time of Note DATE: 03/28/17 TIME: 13:04 Assessment/Plan Assessment/Plan Chief Complaint/Hosp Course SUBJECTIVE DATA: Aalert, feels good, no fevers, nad MICROBIOLOGY: Blood culture and tip cx growing Serratia and Staph R fem josephine ANTIMICROBIALS: Vancomycin and Gentamicin. PHYSICAL EXAMINATION: GENERAL: Well developed, middle-aged, man, who is alert, in no distress. HEENT: Head atraumatic, normocephalic. Sclerae anicteric. Buccal mucosa pink. NECK: Supple. CHEST: Chest rise symmetrical. Breath sounds clear. HEART: S1, S2. ABDOMEN: Soft, bowel sounds present. EXTREMITIES: Without cyanosis. ASSESSMENT: 1. Polymicrobial bacteremia secondary to infected PermCath. 2. End-stage renal disease. 3. Hypertension. PLAN: The patient remains stable, continue abx for 7 more days, f/u vascular rec -s DW pt Problems: Consultation Date/Type/Reason Admit Date/Time Mar 19, 2017 at 21:48 Type of Consultation: id Referring Provider: LAVERNE TODD MD Exam/Review of Systems Vital Signs Vitals Vital Signs Date Time Temp Pulse Resp B/P Pulse Ox O2 Delivery O2 Flow Rate FiO2 03/28/17 12:23 74 03/28/17 12:16 97.8 18 114/77 98 Intake and Output 03/27/17 03/27/17 03/28/17 15:00 23:00 07:00 Intake Total 300 ml 770 ml Output Total 3300 ml Balance -3000 ml 770 ml Results Result Diagram: 03/26/17 0705 03/28/17 1224 Results 24 hrs Laboratory Tests Test 03/28/17 12:24 Potassium Level 4.6 Medications Medications Current Medications Ondansetron HCl (Zofran Inj) 4 mg Q6H PRN IV NAUSEA AND/OR VOMITING Last administered on 03/20/17t 11:57; Admin Dose 4 MG; Start 03/19/17 at 22:30 Acetaminophen (Tylenol Tab) 650 mg Q6H PRN PO PAIN LEVEL 1-3 OR FEVER; Start at 22:30 Morphine Sulfate (morphine) 2 mg Q4H PRN IV PAIN LEVEL 7-10; Start 03/19/17 at 22:30 Docusate Sodium (Colace) 100 mg Q12H PRN PO CONSTIPATION; Start 03/19/17 at 22: 30 Bisacodyl (Dulcolax) 5 mg DAILY PRN PO CONSTIPATION; Start 03/19/17 at 22:30 Famotidine (Pepcid) 20 mg HS PO Last administered on 03/27/17 20:36; Admin Dose 20 MG; Start 03/19/17 at 22:30 Aspirin (Aspirin) 81 mg DAILY PO Last administered on 03/27/17 16:08; Admin Dose 81 MG; Start 03/20/17 at 09:00 Calcitriol (Rocaltrol) 0.25 mcg DAILY PO Last administered on 03/27/17 16:07; Admin Dose 0.25 MCG; Start 03/20/17 at 09:00 Hydralazine HCl (Apresoline) 50 mg QID PO Last administered on 03/28/17 08:12 ; Admin Dose 50 MG; Start 03/19/17 at 22:30 Lorazepam (Ativan) 1 mg BID PRN PO ANXIETY; Start 03/19/17 at 22:30 Hydralazine HCl (Apresoline) 10 mg Q4H PRN IV ELEVATED BLOOD PRESSURE; Start at 22:30 Carvedilol (Coreg) 25 mg BID PO Last administered on 03/28/17 08:13; Admin Dose 25 MG; Start 03/20/17 at 21:00 Nifedipine (Procardia Xl) 90 mg BID PO Last administered on 03/28/17 08:12; Admin Dose 90 MG; Start 03/20/17 at 21:00 Gentamicin Sulfate (Gentamicin Iv Per Pharmacy) GENTAMICIN PER PHARMACY NOTE XX ; Start 03/22/17 at 19:00 Miscellaneous Information (*Rx Drug Level Order Reminder*) 1 ONCE ONCE XX ; Start 03/29/17 at 05:00; Stop 03/29/17 at 05:01 OMAR WARREN NP Mar 28, 2017 13:05
[2017-03-28] MEDS ORDERED: ROPIVACAINE 0.5 % 30 ML VIAL ONE (13:12)
[2017-03-28] MEDS ORDERED: CEFAZOLIN 1 GM INJ ONE (13:41)
[2017-03-28] MEDS: LIDOCAINE 1% (STERILE-PAK) 30 ML INJ ONE ×2 (13:48→15:10)
--- NOTE | 2017-03-28 14:52 | PN ---
DATE: 03/28/2017 SUBJECTIVE DATA: The patient is stable. The patient is pending possible PermCath and AV fistula placement today. No other events noted. OBJECTIVE DATA: VITAL SIGNS: Blood pressure is 138/92, pulse 67, temperature 98.2, and respiration 18. HEENT: Head is normocephalic. NECK: Supple. HEART: Regular rate. LUNGS: Diminished breath sounds at the base. ABDOMEN: Soft, nontender to palpation. No rebound or guarding. EXTREMITIES: Negative for clubbing, cyanosis. No edema. DERMATOLOGIC: No rashes. MUSCULOSKELETAL: No joint effusion. NEUROLOGIC: No change in exam. MEDICATIONS: Reviewed. LABORATORY AND DIAGNOSTIC DATA: Been reviewed. ASSESSMENT AND PLAN: 1. End-stage renal disease. Continue intermittent hemodialysis. Plan for dialysis tomorrow. 2. Sepsis secondary to line infection. The patient is current on antibiotics. Repeat cultures have been negative. 3. Hypertension. Continue current blood pressure regimen. 4. Anemia. Monitor hemoglobin and hematocrit levels. 5. Mineral bone disorder. Monitor calcium and phosphorus levels. 6. access. The patient is pending PermCath and AV fistula placement by . Dictated By: Ramesh Solis DO /[email or web address] /Document#: [id number]
[2017-03-28] MEDS ORDERED: OXYCODONE/ACETAMINOPHEN (5/325) TAB PO PRN ×2 (15:30)
[2017-03-28] MEDS ORDERED: DIPHENHYDRAMINE 50 MG INJ IV PRN (15:30)
[2017-03-28] MEDS ORDERED: MIDAZOLAM 1 MG/ML 2 ML INJ IV PRN (15:30)
[2017-03-28] MEDS ORDERED: hydrALAzine 20 MG INJ IV PRN (15:30)
[2017-03-28] MEDS ORDERED: EPHEDrine SULFATE 50 MG/5 ML SYG IV PRN (15:30)
[2017-03-28] MEDS ORDERED: LABETALOL HCL 20MG INJ IV PRN (15:30)
[2017-03-28] MEDS ORDERED: HYDROmorphONE (0.2 MG/ML) 10ML SYG IV PRN ×3 (15:30)
[2017-03-28] MEDS ORDERED: FENTAnyl 50 MCG/ML VIAL IV PRN ×3 (15:30)
[2017-03-28] MEDS ORDERED: IPRATROPIUM (NEB) 0.5 MG/2.5 ML AMP HHN PRN (15:30)
[2017-03-28] MEDS ORDERED: ALBUTEROL 0.083% (NEB) 2.5 MG/3 ML AMP HHN PRN (15:30)
[2017-03-28] MEDS ORDERED: ONDANSETRON 4 MG INJ IV PRN (15:30)
[2017-03-28] MEDS ORDERED: TRIMETHOBENZAMIDE 100 MG/ML VIAL IM PRN (15:30)
[2017-03-28] MEDS ORDERED: MEPERIDINE 25 MG INJ IV PRN (15:30)
--- NOTE | 2017-03-28 15:34 | OPR ---
Date/Time of Note Date/Time of Note DATE: 03/28/17 TIME: 15:29 Operative Report Free Text/Dictation DATE OF OPERATION: 03/28/2017 SURGEON: Misael Sahni MD PREOPERATIVE DIAGNOSIS: ESRD POSTOPERATIVE DIAGNOSIS: Same PROCEDURE: 1.Creation of a left arm brachiocephalic arteriovenous fistula. 2. Right common femoral vein permanent hemodialysis catheter placement ANESTHESIA: Regional Block and Local COMPLICATIONS: None. ESTIMATED BLOOD LOSS: Minimal. TRANSFUSIONS: None SPECIMEN: None. INDICATIONS: This is a 31-year-old male with a history of ESRD and longstanding history of chest wall catheters. He further has developed some central stenosis with developed intercostal collaterals. The risks and benefits of the procedure were discussed with the patient and not limited to , NE, pneumonia, stroke, infection, thrombosis of graft and arteriovenous fistula, nerve injury, limb loss, revisions of AVF, steal and she elected to undergo surgical intervention. DESCRIPTION: The patient was placed in supine position on the operating room table. The arms were placed at 80 degrees. The normal bony prominences were padded. The anesthesia team had placed the appropriate lines and anesthesia was induced. Time out performed and the appropriate site was marked and confirmed. The patient's upper extremity prepped and draped in the usual standard sterile fashion. Preoperative antibiotics were administered prior to the skin incision since the patient already had been on antibiotics. A 6 cm transverse skin incision was then performed below the antecubital fossa. The cephalic vein was identified and dissected for a segment of nearly 5 cm. Dissection was then carried as distally as possible through that incision. Attention was then directed to the brachial artery. The tendinous aponeurosis of the biceps muscle was then incised. Location of the brachial artery was then identified by palpation. The soft tissue over the brachial artery was then incised, and the brachial artery was then confirmed. The patient was given 2500 units of heparin intravenously. The cephalic vein was then ligated at its most distal end. Yasargil clamps were then applied on the brachial artery, and a 6 mm incision in the anterior wall of the brachial artery was then performed. The cephalic vein was then gently curved and allowed to lay over the arteriotomy. The end of the vein was spatulated to match the side of the arteriotomy. The anastomosis was then performed using a running 6-0 Prolene suture. At the completion of the suture line the brachial artery was forward-flushed and then allowed to backbleed. The cephalic vein was also allowed to backbleed. The anastomosis was irrigated with heparinized saline solution. The suture was then tied and the suture line evaluated for hemostasis, which was adequate. There was evidence of excellent thrill in the cephalic vein. There was a strong pulse palpable in the brachial, radial, and ulnar arteries at the wrist. There was no evidence of any kinks. The subcutaneous tissue was then closed with a 3-0 Vicryl running suture and the skin closed with eduardo. There was evidence of excellent thrill in the cephalic vein after the wound closure. The bed was placed in slight Trendelenburg position and the groin was prepped and draped in the usual standard sterile fashion. The central dialysis catheter was then flushed with heparinized saline solution to ensure function of each port. The skin and subcutaneous tissue were anesthetized with 1% lidocaine. At this point, using an Amplatz Stiff wire, the temporary catheter was removed over the wire. At this point, a tunneled tract was created by creating a 3 mm incision 6 cm away from groin access of the previous Adebayo catheter. At this point, using the tunneler, the permanent hemodialysis catheter was tunneled towards the groin access wire. Once this was established and tunneled appropriately, we went ahead and placed our dilator and dilated our tract over the wire gently. At this point, the catheter was then fed over the wire through a peel-away sheath ensuring that the wire exited from the ports and the peel-away sheath. At this point, the catheter was inserted to the desired depth and the puncture site was closed with 3-0 Vicryl suture and Dermabond was applied. The tunneled dialysis catheter was secured with a 3-0 nylon suture at its flush port site. Then, 3 mL of heparin were placed in each port and an abdominal x-ray was obtained to ensure the placement of the catheter , which was adequate. The patient tolerated the procedure well, was taken to the postanesthesia care unit in stable condition. All instruments, catheters, sponge, and needles were corrected x2. Surgeon see signature line Anesthesia Type: other (local) Estimated Blood Loss: minimal Transfusion Required: no Specimen: none Grafts/Implants right groin perm catheter Complications: no Pt Condition Post Procedure: stable Disposition: PACU EGHBALIEH,MISAEL D. MD Mar 28, 2017 15:34
--- NOTE | 2017-03-28 16:08 | RADRPT ---
PROCEDURE: XR Abdomen. CLINICAL INDICATION: End-stage renal disease. Right groin dialysis catheter placement. TECHNIQUE: AP supine abdomen x-ray. COMPARISON: None. FINDINGS: The upper abdomen is not included on the image. The bowel gas pattern is normal with no evidence of obstruction. There is a dialysis catheter entering via the right inguinal region with the tip at the L1-2 level. There are no abnormal calcifications overlying the urinary tracts. The osseus structures are unremarkable. IMPRESSION: 1. Upper abdomen not included on the image. 2. Dialysis catheter entering via the right inguinal region with the tip at the L1-2 level. RPTAT: QQ .Teo Garcia MD, MD Date Time Electronically viewed and signed by .Teo Garcia MD, MD on 03/28/2017 16:07 .R/
[2017-03-28] MEDS: CALCITRIOL 0.25 MCG CAP PO SCH (18:25)
[2017-03-28] MEDS: ASPIRIN 81 MG TAB PO SCH (18:26)
[2017-03-28] MEDS: FAMOTIDINE 20 MG TAB PO SCH (21:09)
[2017-03-29] VITALS (18 sets, daily range): BP systolic 121–146; BP diastolic 58–89; PULSE 76–85; RESP 17–20
[2017-03-29] MEDS: NIFEdipine (XL) 90 MG TAB PO SCH ×2 (08:47→21:19)
[2017-03-29] MEDS: SEVELAMER 800 MG TAB PO SCH ×3 (08:47→17:27)
[2017-03-29] MEDS: CALCITRIOL 0.25 MCG CAP PO SCH (08:48)
[2017-03-29] MEDS: ASPIRIN 81 MG TAB PO SCH (08:48)
[2017-03-29] MEDS ORDERED: HEPARIN 1000 UNITS/ML 10 ML INJ CATHETER SCH (12:00)
--- NOTE | 2017-03-29 13:08 | PN ---
DATE: 03/29/2017 SUBJECTIVE DATA: The patient is stable, receiving hemodialysis. No other events noted. OBJECTIVE DATA: VITAL SIGNS: Blood pressure is 134/80, respiration 18, pulse 83, temperature 98.5. HEENT: Head is normocephalic. NECK: Supple. HEART: Regular rate. LUNGS: Diminished breath sounds at the base. ABDOMEN: Soft, nontender to palpation. No rebound or guarding. EXTREMITIES: Negative for clubbing, cyanosis. No edema. DERMATOLOGIC: Clean. No rashes. MUSCULOSKELETAL: No joint effusion. NEUROLOGIC: No change in exam. MEDICATIONS: Reviewed. LABORATORY AND DIAGNOSTIC DATA: Has been reviewed. No new labs. ASSESSMENT AND PLAN: 1. End-stage renal disease. The patient is currently on hemodialysis, tolerating well. 2. Access. The patient is status post PermCath placement, arteriovenous fistula placement. 3. Sepsis secondary to line infection. The patient is currently on antibiotics. Repeat cultures been negative. 4. Hypertension. Continue current blood pressure regimen. 5. Anemia. Monitor hemoglobin and hematocrit levels. Continue Epogen. 6. Mineral bone disorder. Monitor calcium and phosphorus levels. Continue phos binders. Dictated By: Ramesh Solis DO /[email or web address]/mike /Document#: [id number]
--- NOTE | 2017-03-29 13:24 | PN ---
Date/Time of Note Date/Time of Note DATE: 03/29/17 TIME: 13:22 Assessment/Plan Lines/Catheters IV Catheter Type (from [facility]): permacath [place] in Place (from Nrs): No Assessment/Plan Chief Complaint/Hosp Course -End-stage renal disease and central stenosis/occlusion: The patient's right chest wall catheter may be infected - Culture resulted: SERRATIA MARCESCENS & COAGULASE NEGATIVE STAPh -S/P removal of right CWC -S/P Right groin Adebayo catheter and Bilateral upper extremity venograms -S/P Right CFV perm catheter -S/P LUE Brachiocephalic fistula creation -Can follow up with vascular in 2-3 weeks -Discussed findings, plan and management with the patient, and he understands. A certified boat builder was present. -Optimize vascular status (blood pressure meds, diet, nutrition, exercise, sugar control, antiplatelets). -Thank you for allowing us to partake in the care of your patient. Please call with any questions. Problems: Subjective 24 Hr Interval Summary no new vascular events overnight Exam/Review of Systems Vital Signs Vitals Vital Signs Date Time Temp Pulse Resp B/P Pulse Ox O2 Delivery O2 Flow Rate FiO2 03/29/17 12:27 76 03/29/17 12:10 17 03/29/17 11:43 134/ 03/29/17 07:52 98.5 99 03/28/17 16:30 Room Air Intake and Output 03/28/17 03/28/17 03/29/17 15:00 23:00 07:00 Intake Total 400 ml 300 ml Balance 400 ml 300 ml Exam Free Text/Dictation GENERAL APPEARANCE: Alert, oriented x3. RESPIRATORY: Clear to auscultation bilaterally. CARDIAC: S1, S2 present. ABDOMEN: Soft, nontender, nondistended. Bowel sounds positive. EXTREMITIES: LUE: palpable brachial pulse. Motor and sensory intact. Capillary refill 2-3 seconds. fistula bruit and thrill present, dressing intact Results Result Diagram: 03/26/17 0705 03/28/17 1224 LAVERNE TODD MD Mar 29, 2017 13:24
--- NOTE | 2017-03-29 14:29 | CONS ---
Date/Time of Note Date/Time of Note DATE: 03/29/17 TIME: 14:27 Assessment/Plan Assessment/Plan Chief Complaint/Hosp Course SUBJECTIVE DATA: Alert, feels good, no fevers, nad MICROBIOLOGY: Blood culture and tip cx growing Serratia and Staph R fem p-cath ANTIMICROBIALS: Vancomycin and Gentamicin. PHYSICAL EXAMINATION: GENERAL: Well developed, middle-aged, man, who is alert, in no distress. HEENT: Head atraumatic, normocephalic. Sclerae anicteric. Buccal mucosa pink. NECK: Supple. CHEST: Chest rise symmetrical. Breath sounds clear. HEART: S1, S2. ABDOMEN: Soft, bowel sounds present. EXTREMITIES: Without cyanosis. ASSESSMENT: 1. Polymicrobial bacteremia secondary to infected PermCath. 2. End-stage renal disease. 3. Hypertension. PLAN: The patient remains stable, may dc home on IV Vanco and PO Cipro for 6 more days [facility] staff Problems: Consultation Date/Type/Reason Admit Date/Time Mar 19, 2017 at 21:48 Type of Consultation: id Referring Provider: LAVERNE TODD MD Exam/Review of Systems Vital Signs Vitals Vital Signs Date Time Temp Pulse Resp B/P Pulse Ox O2 Delivery O2 Flow Rate FiO2 03/29/17 12:27 76 03/29/17 12:10 17 03/29/17 11:43 134/ 03/29/17 07:52 98.5 99 03/28/17 16:30 Room Air Intake and Output 03/28/17 03/28/17 03/29/17 15:00 23:00 07:00 Intake Total 400 ml 300 ml Balance 400 ml 300 ml Results Result Diagram: 03/26/17 0705 03/28/17 1224 Results 24 hrs Laboratory Tests Test 03/29/17 05:06 Random Vancomycin Level 18.1 Medications Medications Current Medications Ondansetron HCl (Zofran Inj) 4 mg Q6H PRN IV NAUSEA AND/OR VOMITING Last administered on 03/20/17t 11:57; Admin Dose 4 MG; Start 03/19/17 at 22:30 Acetaminophen (Tylenol Tab) 650 mg Q6H PRN PO PAIN LEVEL 1-3 OR FEVER; Start at 22:30 Morphine Sulfate (morphine) 2 mg Q4H PRN IV PAIN LEVEL 7-10; Start 03/19/17 at 22:30 Docusate Sodium (Colace) 100 mg Q12H PRN PO CONSTIPATION; Start 03/19/17 at 22: 30 Bisacodyl (Dulcolax) 5 mg DAILY PRN PO CONSTIPATION; Start 03/19/17 at 22:30 Famotidine (Pepcid) 20 mg HS PO Last administered on 03/28/17 21:09; Admin Dose 20 MG; Start 03/19/17 at 22:30 Aspirin (Aspirin) 81 mg DAILY PO Last administered on 03/29/17 08:48; Admin Dose 81 MG; Start 03/20/17 at 09:00 Calcitriol (Rocaltrol) 0.25 mcg DAILY PO Last administered on 03/29/17 08:48; Admin Dose 0.25 MCG; Start 03/20/17 at 09:00 Hydralazine HCl (Apresoline) 50 mg QID PO Last administered on 03/28/17 21:09 ; Admin Dose 50 MG; Start 03/19/17 at 22:30 Lorazepam (Ativan) 1 mg BID PRN PO ANXIETY; Start 03/19/17 at 22:30 Hydralazine HCl (Apresoline) 10 mg Q4H PRN IV ELEVATED BLOOD PRESSURE; Start at 22:30 Carvedilol (Coreg) 25 mg BID PO Last administered on 03/29/17 08:48; Admin Dose 25 MG; Start 03/20/17 at 21:00 Nifedipine (Procardia Xl) 90 mg BID PO Last administered on 03/28/17 21:10; Admin Dose 90 MG; Start 03/20/17 at 21:00 Gentamicin Sulfate (Gentamicin Iv Per Pharmacy) GENTAMICIN PER PHARMACY NOTE XX ; Start 03/22/17 at 19:00 OMAR WARREN NP Mar 29, 2017 14:29
--- NOTE | 2017-03-29 19:33 | PN ---
Date/Time of Note Date/Time of Note DATE: 03/29/17 TIME: 19:32 Assessment/Plan VTE Prophylaxis VTE Prophylaxis Intervention: heparin, LMWH Lines/Catheters IV Catheter Type (from [facility] permacath Urinary Cath still in place: No Assessment/Plan Chief Complaint/Hosp Course 31 yo male with ESRD on HD, hypertension who presented with bactremia from HD line infection. Now s/p removal, placement of AV fistula, and new temporary femoral line for HD 1. Sepsis secondary to dialysis catheter Blood cultures did show Serratia Marcescens and Staphylococcus species ID on the case, continue Gentamicin Repeat blood cultures are negative 7 more days of abx 2. End-stage renal disease. Continue on dialysis per nephrology recommendations. Monitor electrolyte. Stable at present 3. Essential hypertension. Continue antihypertensives as needed. Continue abx as outpatient if possible Problems: Subjective 24 Hr Interval Summary Free Text/Dictation New femoral HD line placed AV fistula placed Patient feeling well no complaints Exam/Review of Systems Vital Signs Vitals Vital Signs Date Time Temp Pulse Resp B/P Pulse Ox O2 Delivery O2 Flow Rate FiO2 03/29/17 16:42 85 03/29/17 16:07 98.9 19 140/77 89 03/28/17 16:30 Room Air Intake and Output 03/28/17 03/28/17 03/29/17 15:00 23:00 07:00 Intake Total 400 ml 300 ml Balance 400 ml 300 ml Exam Constitutional: alert, oriented, well developed Psych: nl mood/affect, no complaints Head: atraumatic, normocephalic Eyes: EOMI, PERRL, nl conjunctiva, nl lids, nl sclera ENMT: nl external ears & nose, nl lips & teeth, nl nasal mucosa & septum Neck: non-tender, supple Respiratory: clear to auscultation, normal air movement Cardiovascular: nl pulses, regular rate and rhythm Gastrointestinal: nl liver, spleen, non-tender, soft Musculoskeletal: nl extremities to inspection, nl gait and stance Extremities: normal pulses Neurological: 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 II-XII intact, nl mental status, nl speech, nl strength Skin: nl turgor, No rash or lesions Lymph: nl lymph nodes Results Result Diagram: 03/26/17 0705 03/28/17 1224 Results 24 hrs Laboratory Tests Test 03/29/17 05:06 Random Vancomycin Level 18.1 Medications Medications Current Medications Ondansetron HCl (Zofran Inj) 4 mg Q6H PRN IV NAUSEA AND/OR VOMITING Last administered on 03/20/17 11:57; Admin Dose 4 MG; Start 03/19/17 at 22:30 Acetaminophen (Tylenol Tab) 650 mg Q6H PRN PO PAIN LEVEL 1-3 OR FEVER; Start at 22:30 Morphine Sulfate (morphine) 2 mg Q4H PRN IV PAIN LEVEL 7-10; Start 03/19/17 at 22:30 Docusate Sodium (Colace) 100 mg Q12H PRN PO CONSTIPATION; Start 03/19/17 at 22: 30 Bisacodyl (Dulcolax) 5 mg DAILY PRN PO CONSTIPATION; Start 03/19/17 at 22:30 Famotidine (Pepcid) 20 mg HS PO Last administered on 03/28/17 21:09; Admin Dose 20 MG; Start 03/19/17 at 22:30 Aspirin (Aspirin) 81 mg DAILY PO Last administered on 03/29/17 08:48; Admin Dose 81 MG; Start 03/20/17 at 09:00 Calcitriol (Rocaltrol) 0.25 mcg DAILY PO Last administered on 03/29/17 08:48; Admin Dose 0.25 MCG; Start 03/20/17 at 09:00 Hydralazine HCl (Apresoline) 50 mg QID PO Last administered on 03/29/17 17:27 ; Admin Dose 50 MG; Start 03/19/17 at 22:30 Lorazepam (Ativan) 1 mg BID PRN PO ANXIETY; Start 03/19/17 at 22:30 Hydralazine HCl (Apresoline) 10 mg Q4H PRN IV ELEVATED BLOOD PRESSURE; Start at 22:30 Carvedilol (Coreg) 25 mg BID PO Last administered on 03/29/17 08:48; Admin Dose 25 MG; Start 03/20/17 at 21:00 Nifedipine (Procardia Xl) 90 mg BID PO Last administered on 03/28/17 21:10; Admin Dose 90 MG; Start 03/20/17 at 21:00 Gentamicin Sulfate GENTAMICIN PER PHARMACY NOTE XX ; Start 03/22/17 at 19:00 Vancomycin HCl/ Sodium Chloride (Vancocin/NS) 150 ml @ 75 mls/hr Q5D IVPB ; Start 03/29/17 at 22:00 BENJAMIN WALLS MD Mar 29, 2017 19:33
[2017-03-29] MEDS: FAMOTIDINE 20 MG TAB PO SCH (21:22)
[2017-03-29] MEDS: EPOETIN 10000 UNITS/1 ML INJ (ESRD) SC SCH (21:23)
[2017-03-29] MEDS: GENTAMICIN 80 MG/NS (PMX) 50 ML IVPB SCH (21:24)
[2017-03-29] MEDS ORDERED: VANCOMYCIN 750 MG in SOD CHLORIDE 0.9% 150 ML IVPB SCH (22:00)
[2017-03-30] VITALS (12 sets, daily range): BP systolic 108–128; BP diastolic 62–87; PULSE 66–88; RESP 17–20
[2017-03-30] MEDS: SEVELAMER 800 MG TAB PO SCH ×3 (08:43→17:42)
[2017-03-30] MEDS: CALCITRIOL 0.25 MCG CAP PO SCH (09:34)
[2017-03-30] MEDS: NIFEdipine (XL) 90 MG TAB PO SCH ×2 (09:46→21:08)
--- NOTE | 2017-03-30 10:45 | PN ---
DATE: 03/30/2017 SUBJECTIVE DATA: The patient is stable. Had hemodialysis yesterday, tolerated well. OBJECTIVE DATA: VITAL SIGNS: Blood pressure 117/64, respirations 20, pulse 98, temperature 98.3. HEENT: Head is normocephalic. NECK: Supple. HEART: Regular rate. LUNGS: Show diminished breath sounds at the base. ABDOMEN: Soft, nontender to palpation. No rebound or guarding. EXTREMITIES: Negative for clubbing, cyanosis. No edema. DERMATOLOGIC: Clean. No rashes. MUSCULOSKELETAL: No joint effusion. NEUROLOGIC: Unchanged exam. MEDICATIONS: Reviewed. LABORATORY AND DIAGNOSTIC DATA: Reviewed. ASSESSMENT AND PLAN: 1. End-stage renal disease. Plan for hemodialysis tomorrow. 2. Access. The patient is status post PermCath and arteriovenous fistula placement. 3. Sepsis secondary to line infection. Continue current antibiotic regimen. 4. Anemia. Continue to monitor H and H levels. Continue Epogen as needed. 5. Mineral bone disorder. Continue to monitor calcium and phosphorus. Continue phosphate binders. Dictated By: Ramesh Solis DO /[email or web address]/[email or web address] /Document#: [id number]
[2017-03-30] MEDS: ASPIRIN 81 MG TAB PO SCH (12:24)
--- NOTE | 2017-03-30 13:13 | CONS ---
Date/Time of Note Date/Time of Note DATE: 03/30/17 TIME: 13:13 Assessment/Plan Assessment/Plan Chief Complaint/Hosp Course SUBJECTIVE DATA: Alert, feels good, no fevers, nad MICROBIOLOGY: Blood culture and tip cx growing Serratia and Staph R fem p-cath ANTIMICROBIALS: Vancomycin and Gentamicin. PHYSICAL EXAMINATION: GENERAL: Well developed, middle-aged, man, who is alert, in no distress. HEENT: Head atraumatic, normocephalic. Sclerae anicteric. Buccal mucosa pink. NECK: Supple. CHEST: Chest rise symmetrical. Breath sounds clear. HEART: S1, S2. ABDOMEN: Soft, bowel sounds present. EXTREMITIES: Without cyanosis. ASSESSMENT: 1. Polymicrobial bacteremia secondary to infected PermCath. 2. End-stage renal disease. 3. Hypertension. PLAN: The patient remains stable, may dc home on IV Vanco and PO Cipro for 5 more days [facility] staff Problems: Consultation Date/Type/Reason Admit Date/Time Mar 19, 2017 at 21:48 Type of Consultation: id Referring Provider: LAVERNE TODD MD Exam/Review of Systems Vital Signs Vitals Vital Signs Date Time Temp Pulse Resp B/P Pulse Ox O2 Delivery O2 Flow Rate FiO2 03/30/17 12:42 97.7 83 19 108/68 92 03/29/17 21:00 Room Air Intake and Output 03/29/17 03/29/17 03/30/17 15:00 23:00 07:00 Intake Total 300 ml 50 ml 550 ml Output Total 3800 ml Balance -3500 ml 50 ml 550 ml Results Result Diagram: 03/26/17 0705 03/28/17 1224 Medications Medications Current Medications Ondansetron HCl (Zofran Inj) 4 mg Q6H PRN IV NAUSEA AND/OR VOMITING Last administered on 03/20/17t 11:57; Admin Dose 4 MG; Start 03/19/17 at 22:30 Acetaminophen (Tylenol Tab) 650 mg Q6H PRN PO PAIN LEVEL 1-3 OR FEVER; Start at 22:30 Morphine Sulfate (morphine) 2 mg Q4H PRN IV PAIN LEVEL 7-10; Start 03/19/17 at 22:30 Docusate Sodium (Colace) 100 mg Q12H PRN PO CONSTIPATION; Start 03/19/17 at 22: 30 Bisacodyl (Dulcolax) 5 mg DAILY PRN PO CONSTIPATION; Start 03/19/17 at 22:30 Famotidine (Pepcid) 20 mg HS PO Last administered on 03/29/17 21:22; Admin Dose 20 MG; Start 03/19/17 at 22:30 Aspirin (Aspirin) 81 mg DAILY PO Last administered on 03/30/17 12:24; Admin Dose 81 MG; Start 03/20/17 at 09:00 Calcitriol (Rocaltrol) 0.25 mcg DAILY PO Last administered on 03/30/17 09:34; Admin Dose 0.25 MCG; Start 03/20/17 at 09:00 Hydralazine HCl (Apresoline) 50 mg QID PO Last administered on 03/30/17 12:25 ; Admin Dose 50 MG; Start 03/19/17 at 22:30 Lorazepam (Ativan) 1 mg BID PRN PO ANXIETY; Start 03/19/17 at 22:30 Hydralazine HCl (Apresoline) 10 mg Q4H PRN IV ELEVATED BLOOD PRESSURE; Start at 22:30 Carvedilol (Coreg) 25 mg BID PO Last administered on 03/30/17 09:36; Admin Dose 25 MG; Start 03/20/17 at 21:00 Nifedipine (Procardia Xl) 90 mg BID PO Last administered on 03/30/17 09:46; Admin Dose 90 MG; Start 03/20/17 at 21:00 Gentamicin Sulfate GENTAMICIN PER PHARMACY NOTE XX ; Start 03/22/17 at 19:00 Vancomycin HCl/ Sodium Chloride (Vancocin/NS) 150 ml @ 75 mls/hr Q5D IVPB Last administered on 03/29/17 22:37; Admin Dose 75 MLS/HR; Start 03/29/17 at 22 :00 OMAR WARREN NP Mar 30, 2017 13:13
--- NOTE | 2017-03-30 17:31 | CONS ---
Date/Time of Note Date/Time of Note DATE: 03/30/17 TIME: 17:30 Assessment/Plan Assessment/Plan Chief Complaint/Hosp Course IMP: 1.Pre-op for AVF creation-NL EF by echo/negative trop x 1 2. HTN 3.anemia 4.ESRD Recc -OK to proceed to OR at overall low to moederate risk without further noninvasive evaluation -Continue current procardia/coreg/hydralazine -HD for volume removal -Continue asa -F/U cx data and continue antibiotics -pnding surgery when stable from infection standpoint Problems: Consultation Date/Type/Reason Admit Date/Time Mar 19, 2017 at 21:48 Initial Consult Date 03/22/2017 Type of Consultation: cardiology Reason for Consultation pre-op Referring Provider: LAVERNE TODD MD Exam/Review of Systems Vital Signs Vitals Vital Signs Date Time Temp Pulse Resp B/P Pulse Ox O2 Delivery O2 Flow Rate FiO2 03/30/17 16:18 82 03/30/17 15:47 98.1 17 110/62 100 03/29/17 21:00 Room Air Intake and Output 03/29/17 03/29/17 03/30/17 15:00 23:00 07:00 Intake Total 300 ml 50 ml 550 ml Output Total 3800 ml Balance -3500 ml 50 ml 550 ml Exam Review of Systems: CONSTITUTIONAL: No fevers, chills. PULMONARY: No sob CARDIOVASCULAR: No chest pain/palpitations GASTROINTESTINAL: No nausea/vomiting. GENITOURINARY: No hematuria/dysuria. MUSCULOSKELETAL: No myagias/arthalgias. PSYCHIATRIC: The patient denies depression. NEUROLOGIC: No weakness Constitutional: alert, oriented Psych: no complaints Head: normocephalic ENMT: mucosa pink and moist Neck: jvd (9 cm water), supple Respiratory: clear to auscultation Cardiovascular: regular rate and rhythm Gastrointestinal: non-tender, soft Musculoskeletal: muscle tone (normal) Extremities: edema (none) Neurological: other (No focal deficits) Results Result Diagram: 03/26/17 0705 03/28/17 1224 Medications Medications Current Medications Ondansetron HCl (Zofran Inj) 4 mg Q6H PRN IV NAUSEA AND/OR VOMITING Last administered on 03/20/17t 11:57; Admin Dose 4 MG; Start 03/19/17 at 22:30 Acetaminophen (Tylenol Tab) 650 mg Q6H PRN PO PAIN LEVEL 1-3 OR FEVER; Start at 22:30 Morphine Sulfate (morphine) 2 mg Q4H PRN IV PAIN LEVEL 7-10; Start 03/19/17 at 22:30 Docusate Sodium (Colace) 100 mg Q12H PRN PO CONSTIPATION; Start 03/19/17 at 22: 30 Bisacodyl (Dulcolax) 5 mg DAILY PRN PO CONSTIPATION; Start 03/19/17 at 22:30 Famotidine (Pepcid) 20 mg HS PO Last administered on 03/29/17 21:22; Admin Dose 20 MG; Start 03/19/17 at 22:30 Aspirin (Aspirin) 81 mg DAILY PO Last administered on 03/30/17 12:24; Admin Dose 81 MG; Start 03/20/17 at 09:00 Calcitriol (Rocaltrol) 0.25 mcg DAILY PO Last administered on 03/30/17 09:34; Admin Dose 0.25 MCG; Start 03/20/17 at 09:00 Hydralazine HCl (Apresoline) 50 mg QID PO Last administered on 03/30/17 12:25 ; Admin Dose 50 MG; Start 03/19/17 at 22:30 Lorazepam (Ativan) 1 mg BID PRN PO ANXIETY; Start 03/19/17 at 22:30 Hydralazine HCl (Apresoline) 10 mg Q4H PRN IV ELEVATED BLOOD PRESSURE; Start at 22:30 Carvedilol (Coreg) 25 mg BID PO Last administered on 03/30/17 09:36; Admin Dose 25 MG; Start 03/20/17 at 21:00 Nifedipine (Procardia Xl) 90 mg BID PO Last administered on 03/30/17 09:46; Admin Dose 90 MG; Start 03/20/17 at 21:00 Gentamicin Sulfate GENTAMICIN PER PHARMACY NOTE XX ; Start 03/22/17 at 19:00 Vancomycin HCl/ Sodium Chloride (Vancocin/NS) 150 ml @ 75 mls/hr Q5D IVPB Last administered on 03/29/17 22:37; Admin Dose 75 MLS/HR; Start 03/29/17 at 22 :00 RADHA BALTAZAR Mar 30, 2017 17:31
--- NOTE | 2017-03-30 18:23 | PN ---
Date/Time of Note Date/Time of Note DATE: 03/30/17 TIME: 18:22 Assessment/Plan VTE Prophylaxis VTE Prophylaxis Intervention: heparin Lines/Catheters IV Catheter Type (from Nrs): Saline Lock Urinary Cath still in place: No Assessment/Plan Chief Complaint/Hosp Course 31 yo male with ESRD on HD, hypertension who presented with bactremia from HD line infection. Now s/p removal, placement of AV fistula, and new temporary femoral line for HD 1. Sepsis secondary to dialysis catheter Blood cultures did show Serratia Marcescens and Staphylococcus species ID on the case, continue vanco/cipro Repeat blood cultures are negative 5 more days of abx can be completed as outpatient, needs to be arranged and he can be discharged 2. End-stage renal disease. Continue on dialysis per nephrology recommendations. Monitor electrolyte. Stable at present 3. Essential hypertension. Continue antihypertensives as needed. Continue abx as outpatient if possible Problems: Subjective 24 Hr Interval Summary Free Text/Dictation No change to clinical stauts Awaiting discharge pending arrangement of vanco infusion at dialysis Exam/Review of Systems Vital Signs Vitals Vital Signs Date Time Temp Pulse Resp B/P Pulse Ox O2 Delivery O2 Flow Rate FiO2 03/30/17 16:18 82 03/30/17 15:47 98.1 17 110/62 100 03/29/17 21:00 Room Air Intake and Output 03/29/17 03/29/17 03/30/17 15:00 23:00 07:00 Intake Total 300 ml 50 ml 550 ml Output Total 3800 ml Balance -3500 ml 50 ml 550 ml Results Result Diagram: 03/26/17 0705 03/28/17 1224 Medications Medications Current Medications Ondansetron HCl (Zofran Inj) 4 mg Q6H PRN IV NAUSEA AND/OR VOMITING Last administered on 03/20/17t 11:57; Admin Dose 4 MG; Start 03/19/17 at 22:30 Acetaminophen (Tylenol Tab) 650 mg Q6H PRN PO PAIN LEVEL 1-3 OR FEVER; Start at 22:30 Morphine Sulfate (morphine) 2 mg Q4H PRN IV PAIN LEVEL 7-10; Start 03/19/17 at 22:30 Docusate Sodium (Colace) 100 mg Q12H PRN PO CONSTIPATION; Start 03/19/17 at 22: 30 Bisacodyl (Dulcolax) 5 mg DAILY PRN PO CONSTIPATION; Start 03/19/17 at 22:30 Famotidine (Pepcid) 20 mg HS PO Last administered on 03/29/17 21:22; Admin Dose 20 MG; Start 03/19/17 at 22:30 Aspirin (Aspirin) 81 mg DAILY PO Last administered on 03/30/17 12:24; Admin Dose 81 MG; Start 03/20/17 at 09:00 Calcitriol (Rocaltrol) 0.25 mcg DAILY PO Last administered on 03/30/17 09:34; Admin Dose 0.25 MCG; Start 03/20/17 at 09:00 Hydralazine HCl (Apresoline) 50 mg QID PO Last administered on 03/30/17 17:42 ; Admin Dose 50 MG; Start 03/19/17 at 22:30 Lorazepam (Ativan) 1 mg BID PRN PO ANXIETY; Start 03/19/17 at 22:30 Hydralazine HCl (Apresoline) 10 mg Q4H PRN IV ELEVATED BLOOD PRESSURE; Start at 22:30 Carvedilol (Coreg) 25 mg BID PO Last administered on 03/30/17 09:36; Admin Dose 25 MG; Start 03/20/17 at 21:00 Nifedipine (Procardia Xl) 90 mg BID PO Last administered on 03/30/17 09:46; Admin Dose 90 MG; Start 03/20/17 at 21:00 Gentamicin Sulfate GENTAMICIN PER PHARMACY NOTE XX ; Start 03/22/17 at 19:00 Vancomycin HCl/ Sodium Chloride (Vancocin/NS) 150 ml @ 75 mls/hr Q5D IVPB Last administered on 03/29/17 22:37; Admin Dose 75 MLS/HR; Start 03/29/17 at 22 :00 BENJAMIN WALLS MD Mar 30, 2017 18:23
[2017-03-30] MEDS: FAMOTIDINE 20 MG TAB PO SCH (21:09)
[2017-03-31] VITALS (18 sets, daily range): BP systolic 114–153; BP diastolic 61–103; PULSE 65–85; RESP 18–20
[2017-03-31] MEDS: SEVELAMER 800 MG TAB PO SCH ×3 (08:43→19:25)
--- NOTE | 2017-03-31 11:00 | PN ---
DATE: SUBJECTIVE DATA: The patient is stable. No events overnight. No fevers, chills, nausea, vomiting. OBJECTIVE DATA: VITAL SIGNS: Blood pressure 119/76, temperature 97.9, pulse 76, respirations 19. HEENT: Head is normocephalic. NECK: Supple. HEART: Regular rate. LUNGS: Diminished breath sounds at the base. ABDOMEN: Soft, nontender to palpation. No rebound or guarding. EXTREMITIES: Negative for clubbing, cyanosis. No edema. DERMATOLOGIC: Clean. No rashes. MUSCULOSKELETAL: No joint effusion. NEUROLOGIC: No change in exam. MEDICATIONS: Reviewed been reviewed. ASSESSMENT AND PLAN: 1. End-stage renal disease. Plan for hemodialysis tomorrow. We will dialyze for 3 hours, 3K bath, calcium 2.5. 2. Access. The patient is status post Permacath placement. AV fistula placement. 3. Sepsis secondary to line infection. The patient is completing antibiotic course. 4. Anemia. Monitor H and H levels. Will give Epogen as needed. 5. Mineral bone disorder. Monitor calcium and phosphorus levels. Continue phos binders. 6. Hypertension. Continue current blood pressure regimen. Dictated By: Ramesh Solis DO /tamiko/brittney /Document#: [id number]
[2017-03-31] MEDS: ASPIRIN 81 MG TAB PO SCH (12:32)
[2017-03-31] MEDS: CALCITRIOL 0.25 MCG CAP PO SCH (12:34)
--- NOTE | 2017-03-31 14:43 | CONS ---
Date/Time of Note Date/Time of Note DATE: 03/31/17 TIME: 14:42 Assessment/Plan Assessment/Plan Chief Complaint/Hosp Course SUBJECTIVE DATA: Alert, feels good, no fevers, nad MICROBIOLOGY: Blood culture and tip cx growing Serratia and Staph R fem p-cath ANTIMICROBIALS: Vancomycin and Gentamicin. PHYSICAL EXAMINATION: GENERAL: Well developed, middle-aged, man, who is alert, in no distress. HEENT: Head atraumatic, normocephalic. Sclerae anicteric. Buccal mucosa pink. NECK: Supple. CHEST: Chest rise symmetrical. Breath sounds clear. HEART: S1, S2. ABDOMEN: Soft, bowel sounds present. EXTREMITIES: Without cyanosis. ASSESSMENT: 1. Polymicrobial bacteremia secondary to infected PermCath. 2. End-stage renal disease. 3. Hypertension. PLAN: The patient remains stable, may dc home on IV Vanco and PO Cipro to complete 2 weeks antibiotics [facility] staff Problems: Consultation Date/Type/Reason Admit Date/Time Mar 19, 2017 at 21:48 Type of Consultation: id Referring Provider: LAVERNE TODD MD Exam/Review of Systems Vital Signs Vitals Vital Signs Date Time Temp Pulse Resp B/P Pulse Ox O2 Delivery O2 Flow Rate FiO2 03/31/17 12:23 65 03/31/17 11:49 98.3 19 115/61 95 03/29/17 21:00 Room Air Intake and Output 03/30/17 03/30/17 03/31/17 15:00 23:00 07:00 Intake Total 800 ml 300 ml Balance 800 ml 300 ml Results Result Diagram: 03/28/17 1224 Medications Medications Current Medications Ondansetron HCl (Zofran Inj) 4 mg Q6H PRN IV NAUSEA AND/OR VOMITING Last administered on 03/20/17t 11:57; Admin Dose 4 MG; Start 03/19/17 at 22:30 Acetaminophen (Tylenol Tab) 650 mg Q6H PRN PO PAIN LEVEL 1-3 OR FEVER; Start at 22:30 Morphine Sulfate (morphine) 2 mg Q4H PRN IV PAIN LEVEL 7-10; Start 03/19/17 at 22:30 Docusate Sodium (Colace) 100 mg Q12H PRN PO CONSTIPATION; Start 03/19/17 at 22: 30 Bisacodyl (Dulcolax) 5 mg DAILY PRN PO CONSTIPATION; Start 03/19/17 at 22:30 Famotidine (Pepcid) 20 mg HS PO Last administered on 03/30/17 21:09; Admin Dose 20 MG; Start 03/19/17 at 22:30 Aspirin (Aspirin) 81 mg DAILY PO Last administered on 03/31/17 12:32; Admin Dose 81 MG; Start 03/20/17 at 09:00 Calcitriol (Rocaltrol) 0.25 mcg DAILY PO Last administered on 03/31/17 12:34; Admin Dose 0.25 MCG; Start 03/20/17 at 09:00 Hydralazine HCl (Apresoline) 50 mg QID PO Last administered on 03/30/17 21:09 ; Admin Dose 50 MG; Start 03/19/17 at 22:30 Lorazepam (Ativan) 1 mg BID PRN PO ANXIETY; Start 03/19/17 at 22:30 Hydralazine HCl (Apresoline) 10 mg Q4H PRN IV ELEVATED BLOOD PRESSURE; Start at 22:30 Carvedilol (Coreg) 25 mg BID PO Last administered on 03/30/17 21:09; Admin Dose 25 MG; Start 03/20/17 at 21:00 Nifedipine (Procardia Xl) 90 mg BID PO Last administered on 03/30/17 21:08; Admin Dose 90 MG; Start 03/20/17 at 21:00 Gentamicin Sulfate GENTAMICIN PER PHARMACY NOTE XX ; Start 03/22/17 at 19:00 Vancomycin HCl/ Sodium Chloride (Vancocin/NS) 150 ml @ 75 mls/hr Q5D IVPB Last administered on 03/29/17 22:37; Admin Dose 75 MLS/HR; Start 03/29/17 at 22 :00 OMAR WARREN NP Mar 31, 2017 14:43
[2017-03-31] MEDS ORDERED: CIPR500T4 PO (15:57)
--- NOTE | 2017-03-31 15:59 | PDOCDIS ---
Discharge Instructions DIAGNOSIS Discharge Diagnosis Line infection, bacteremia CONDITION Patient Condition: Good HOME CARE INSTRUCTIONS: Diet Instructions: 2gm NaSpecial Diet: renal FOLLOW UP/APPOINTMENTS Follow-up Plan Continue ciprofloxacin (antibiotic) for 5 more days Continue dialysis as schedule at [facility]. You will receive vancomycin with your HD sessions over the next 5 days Keep your dialysis catheter in your groin clean and dry Follow up with your doctors in clinic in the next 1-2 weeks BENJAMIN WALLS MD Mar 31, 2017 15:59
--- NOTE | 2017-03-31 18:56 | CONS ---
Date/Time of Note Date/Time of Note DATE: 03/31/17 TIME: 18:54 Assessment/Plan Assessment/Plan Chief Complaint/Hosp Course IMP: 1.Pre-op for AVF creation-NL EF by echo/negative trop x 1 2. HTN 3.anemia 4.ESRD Recc -OK to proceed to OR at overall low to moederate risk without further noninvasive evaluation -Continue current procardia/coreg/hydralazine -HD for volume removal -Continue asa -F/U cx data and continue antibiotics -pnding surgery when stable from infection standpoint Problems: Consultation Date/Type/Reason Admit Date/Time Mar 19, 2017 at 21:48 Initial Consult Date 03/22/2017 Type of Consultation: cardiology Reason for Consultation Pre-op Referring Provider: LAVERNE TODD MD Exam/Review of Systems Vital Signs Vitals Vital Signs Date Time Temp Pulse Resp B/P Pulse Ox O2 Delivery O2 Flow Rate FiO2 03/31/17 18:30 85 03/31/17 18:30 15 03/31/17 15:56 98.0 153/95 99 03/29/17 21:00 Room Air Intake and Output 03/30/17 03/30/17 03/31/17 15:00 23:00 07:00 Intake Total 800 ml 300 ml Balance 800 ml 300 ml Exam Review of Systems: CONSTITUTIONAL: No fevers, chills. PULMONARY: No sob CARDIOVASCULAR: No chest pain/palpitations GASTROINTESTINAL: No nausea/vomiting. GENITOURINARY: No hematuria/dysuria. MUSCULOSKELETAL: No myagias/arthalgias. PSYCHIATRIC: The patient denies depression. NEUROLOGIC: No weakness Constitutional: alert Psych: no complaints Head: normocephalic ENMT: mucosa pink and moist Neck: jvd (9 cm water), supple Respiratory: clear to auscultation Cardiovascular: regular rate and rhythm Gastrointestinal: non-tender, soft Musculoskeletal: muscle tone (normal) Extremities: edema (none) Neurological: other (No focal deficits) Results Result Diagram: 03/28/17 1224 Medications Medications Current Medications Ondansetron HCl (Zofran Inj) 4 mg Q6H PRN IV NAUSEA AND/OR VOMITING Last administered on 03/20/17t 11:57; Admin Dose 4 MG; Start 03/19/17 at 22:30 Acetaminophen (Tylenol Tab) 650 mg Q6H PRN PO PAIN LEVEL 1-3 OR FEVER; Start at 22:30 Morphine Sulfate (morphine) 2 mg Q4H PRN IV PAIN LEVEL 7-10; Start 03/19/17 at 22:30 Docusate Sodium (Colace) 100 mg Q12H PRN PO CONSTIPATION; Start 03/19/17 at 22: 30 Bisacodyl (Dulcolax) 5 mg DAILY PRN PO CONSTIPATION; Start 03/19/17 at 22:30 Famotidine (Pepcid) 20 mg HS PO Last administered on 03/30/17 21:09; Admin Dose 20 MG; Start 03/19/17 at 22:30 Aspirin (Aspirin) 81 mg DAILY PO Last administered on 03/31/17 12:32; Admin Dose 81 MG; Start 03/20/17 at 09:00 Calcitriol (Rocaltrol) 0.25 mcg DAILY PO Last administered on 03/31/17 12:34; Admin Dose 0.25 MCG; Start 03/20/17 at 09:00 Hydralazine HCl (Apresoline) 50 mg QID PO Last administered on 03/30/17 21:09 ; Admin Dose 50 MG; Start 03/19/17 at 22:30 Lorazepam (Ativan) 1 mg BID PRN PO ANXIETY; Start 03/19/17 at 22:30 Hydralazine HCl (Apresoline) 10 mg Q4H PRN IV ELEVATED BLOOD PRESSURE; Start at 22:30 Carvedilol (Coreg) 25 mg BID PO Last administered on 03/30/17 21:09; Admin Dose 25 MG; Start 03/20/17 at 21:00 Nifedipine (Procardia Xl) 90 mg BID PO Last administered on 03/30/17 21:08; Admin Dose 90 MG; Start 03/20/17 at 21:00 Gentamicin Sulfate GENTAMICIN PER PHARMACY NOTE XX ; Start 03/22/17 at 19:00 Vancomycin HCl/ Sodium Chloride (Vancocin/NS) 150 ml @ 75 mls/hr Q5D IVPB Last administered on 03/29/17 22:37; Admin Dose 75 MLS/HR; Start 03/29/17 at 22 :00 RADHA BALTAZAR Mar 31, 2017 18:56
[2017-03-31] MEDS: GENTAMICIN 80 MG/NS (PMX) 50 ML IVPB SCH (19:35)
[2017-03-31] MEDS: EPOETIN 10000 UNITS/1 ML INJ (ESRD) SC SCH (19:36)
[2017-03-31] MEDS: NIFEdipine (XL) 90 MG TAB PO SCH (19:37)
[2017-03-31] MEDS: FAMOTIDINE 20 MG TAB PO SCH (20:54)
== END 2017-03-31 21:40 | disposition home or self-care (01) | DRG 264 ==
LOC: E/R 19:54 → MS4 21:48
PROVIDERS: ADMIT Family Medicine; ATTEND Family Medicine
PROC: 0JPTX3Z Removal of Infusion Device from Trunk Subcutaneous Tissue and Fascia, External Approach (ICD-10-PCS; 2017-03-21)
PROC: 06HM33Z Insertion of Infusion Device into Right Femoral Vein, Percutaneous Approach (ICD-10-PCS; 2017-03-22)
PROC: 5A1D60Z (ICD-10-PCS; 2017-03-22)
PROC: B51P1ZZ Fluoroscopy of Bilateral Upper Extremity Veins using Low Osmolar Contrast (ICD-10-PCS; 2017-03-22)
PROC: 03170ZD Bypass Right Brachial Artery to Upper Arm Vein, Open Approach (ICD-10-PCS; principal; 2017-03-28 12:30)
DX: T82.7XXA Infection and inflammatory reaction due to other cardiac and vascular devices, implants and grafts, initial encounter (principal); A41.89 Other specified sepsis; I12.0 Hypertensive chronic kidney disease with stage 5 chronic kidney disease or end stage renal disease; N18.6 End stage renal disease; I82.B11 Acute embolism and thrombosis of right subclavian vein; I82.290 Acute embolism and thrombosis of other thoracic veins; I82.C11 Acute embolism and thrombosis of right internal jugular vein; E83.9 Disorder of mineral metabolism, unspecified; D64.9 Anemia, unspecified; Z99.2 Dependence on renal dialysis; Y84.1 Kidney dialysis as the cause of abnormal reaction of the patient, or of later complication, without mention of misadventure at the time of the procedure; Y92.89 Other specified places as the place of occurrence of the external cause
CPT/HCPCS: 36415; 71010; 74000; 75716; 80048; 80053; 80061; 80202; 83036; 83605; 83735; 84100; 84132; 84443; 84484; 85025; 85610; 85730; 87040; 87070; 87081; 90935; 93005; 93306; 93970; 96374; 96375; J0690; J0692; J1580; J1644; J1885; J2250; J2270; J2405; J2795; J3010; J3370; J7030; Q4081; Q9967

== ENCOUNTER 2017-04-09 19:32 | Inpatient (IN) | END 2017-04-15 13:00 | disposition home or self-care (01) | DRG 314 | DX: T82.41XA Breakdown (mechanical) of vascular dialysis catheter, initial encounter (principal); N18.6 End stage renal disease; N17.9 Acute kidney failure, unspecified; D70.9 Neutropenia, unspecified; I12.0 Hypertensive chronic kidney disease with stage 5 chronic kidney disease or end stage renal disease; E87.5 Hyperkalemia; E83.39 Other disorders of phosphorus metabolism; F12.90 Cannabis use, unspecified, uncomplicated; Z99.2 Dependence on renal dialysis; I16.0 Hypertensive urgency; Z87.891 Personal history of nicotine dependence; Z79.82 Long term (current) use of aspirin; D63.1 Anemia in chronic kidney disease; Y84.8 Other medical procedures as the cause of abnormal reaction of the patient, or of later complication, without mention of misadventure at the time of the procedure; E87.70 Fluid overload, unspecified; Z23 Encounter for immunization ==

== ENCOUNTER 2017-04-16 20:02 | Inpatient (IN) | payer MEDICAID, OTHER ==
[~2017-04-16] VITALS: Ht 170.2 cm; Wt 73.6 kg
[~2017-04-16 20:02] MED LIST changes: +CIPR500T4 PO; -CLON-379 PO; -NIT4 SL
[2017-04-16 21:24] LABS: BASOPHILS % 0.6 % (0.0-2.0); EOSINOPHILS # 0.6 10^3/ul (0.0-0.5); EOSINOPHILS % 12.4 % (0.0-7.0); HEMATOCRIT 27.7 % (42.0-52.0); HEMOGLOBIN 8.6 g/dl (14.0-18.0); LYMPHOCYTES # 1.4 10^3/ul (0.8-2.9); MEAN CORPUSCULAR HEMOGLOBIN 30.2 pg (29.0-33.0); MEAN CORPUSCULAR VOLUME 97.2 fl (82.0-101.0); MEAN PLATELET VOLUME 10.6 fl (7.4-10.4); MONOCYTE # 0.7 10^3/ul (0.3-0.9); MONOCYTES % 12.6 % (0.0-11.0); NEUTROPHIL # 2.4 10^3/ul (1.6-7.5); PLATELET COUNT 190 10^3/UL (140-415); RED BLOOD COUNT 2.85 10^6/ul (4.70-6.10); RED CELL DISTRIBUTION WIDTH 12.8 % (11.5-14.5); WHITE BLOOD COUNT 5.2 10^3/ul (4.8-10.8)
[2017-04-16] MEDS ORDERED: ONDANSETRON 4 MG INJ IV PRN ×2 (21:30→23:30)
[2017-04-16] MEDS ORDERED: ACETAMINOPHEN 325 MG TAB PO PRN ×2 (21:30→23:30)
[2017-04-16 21:52] LABS: CALCIUM 8.8 mg/dl (8.4-10.2); POTASSIUM 5.4 mmol/L (3.5-5.1)
[2017-04-16] MEDS ORDERED: NA POLYST SULFON 15 GM/60 ML BTL PO ONE (21:58)
[2017-04-16 21:59] LABS: CREATININE 15.77 mg/dl (0.61-1.24)
[2017-04-16 22:03] LABS: TROPONIN-I 0.114 ng/ml (0.00-0.12)
[2017-04-16 22:04] VITALS: TEMP 98.1
--- NOTE | 2017-04-16 22:11 | RADRPT ---
PROCEDURE: XR Chest. CLINICAL INDICATION: Chest pain TECHNIQUE: Single portable view of the chest was obtained COMPARISON: March 19, 2017 FINDINGS: The trachea is midline. The cardiac silhouette and pulmonary vascularity are within normal limits. T he lungs are clear. The costophrenic angles are sharp. IMPRESSION: 1. No evidence of acute cardiopulmonary disease. RPTAT: AAPP Physician Frances Date Time Electronically viewed and signed by Iván Harrison Physician on 04/16/2017 22:10 HANSA/
[2017-04-16 22:12] VITALS: BP 160/98; RESP 18
[2017-04-16 22:48] VITALS: Ht 170.2 cm; Wt 73.6 kg
--- NOTE | 2017-04-16 22:52 | ERA ---
ER Documentation Chief Complaint Date/Time DATE: 04/16/17 TIME: 22:50 Chief Complaint dialysis cath right femoval not working, unable to do dialysis today HPI Patient is a 31-year-old male with dialysis and hypertension who presents with a dialysis catheter which is not working. He went to dialysis today but the right femoral dialysis catheter was not functioning and they could not do dialysis. The patient had dialysis on and that was the last time he had it. He gets it Tuesday, , and Tuesday. He needs to have his dialysis catheter effects. He has no other complaints. Upon review of old medical records this is the patient's eighth visit to the ER since 2014. ROS All systems reviewed and are negative except as per history of present illness. Medications Home Meds Active Scripts Ciprofloxacin Hcl* (Ciprofloxacin Hcl*) 500 Mg Tablet, 500 MG PO DAILY for 5 Days, #5 TAB Prov:BENJAMIN WALLS MD 03/31/17 Lorazepam* (Lorazepam*) 1 Mg Tablet, 1 MG PO BID Y for ANXIETY, #14 TAB Prov:PATTY SERNA 11/25/15 Hydralazine Hcl* (Hydralazine Hcl*) 50 Mg Tab, 50 MG PO QID, #120 TAB Prov:PATTY SERNA 11/25/15 Sevelamer Hcl* (Renagel*) 800 Mg Tab, 3200 MG PO WITH MEALS for 30 Days, TAB Prov:REGBRIGHT RIZVI 11/18/15 Nifedipine* (Procardia XL*) 90 Mg Tabsr, 90 MG PO BID for 30 Days, TAB Prov:REGBRIGHT RIZVI 11/18/15 Furosemide* (Lasix*) 40 Mg Tab, 40 MG PO DAILY@06 for 30 Days, TAB Prov:REGIDOBRIGHT Arias 11/18/15 Carvedilol* (Coreg*) 25 Mg Tab, 25 MG PO BID for 30 Days, TAB Prov:BRIGHT JACKSON 11/18/15 Calcitriol* (Rocaltrol*) 0.25 Mcg Cap, 0.25 MCG PO DAILY, #30 CAP 2 Refills Prov:MORGAN JOHNSON MD 09/18/15 Aspirin (Aspirin) 81 Mg Chew, 81 MG PO DAILY, #30 TAB 2 Refills Prov:MORGAN JOHNSON MD 09/18/15 Reported Medications Famotidine* (Famotidine*) 20 Mg Tablet, 20 MG PO BID, TAB 07/12/15 Allergies Allergies: Coded Allergies: No Known Allergy (Unverified , 04/16/17) PMhx/Soc History of Surgery: Yes (LEFT AV SHUNT AND RIGHT GROIN HOME CATH.PLACEMENT) Anesthesia Reaction: No Hx Neurological Disorder: Yes (ANXIETY) Hx Respiratory Disorders: No Hx Cardiac Disorders: Yes (HTN) Hx Psychiatric Problems: No Hx Miscellaneous Medical Probl: Yes (MARIJUANA USE, UMBILICAL HERNIA, HYPERKALEMIA) Hx Alcohol Use: No Hx Substance Use: Yes (MARIJUANA USE) Hx Tobacco Use: No Smoking Status: Never smoker FmHx Family History: No diabetes Physical Exam Vitals Vital Signs Date Time Temp Pulse Resp B/P Pulse Ox O2 Delivery O2 Flow Rate FiO2 04/16/17 20:07 98.1 87 20 161/99 97 Physical Exam Const: No acute distress Head: Atraumatic Eyes: Normal Conjunctiva ENT: Normal External Ears, Nose and Mouth. Neck: Full range of motion..~ No meningismus. Resp: Clear to auscultation bilaterally Cardio: Regular rate and rhythm, no murmurs Abd: Soft, non tender, non distended. Normal bowel sounds Skin: No petechiae or rashes Back: No midline or flank tenderness Ext: No cyanosis, or edema Neur: Awake and alert Psych: Normal Mood and Affect Result Diagram: 04/16/17210804/16/172108 Results 24 hrs Laboratory Tests Test 04/16/17 21:09 White Blood Count 5.210^3/ul Red Blood Count 2.8510^6/ul Hemoglobin 8.6g/dl Hematocrit 27.7% Mean Corpuscular Volume 97.2fl Mean Corpuscular Hemoglobin 30.2pg Mean Corpuscular Hemoglobin Concent 31.0g/dl Red Cell Distribution Width 12.8% Platelet Count 51841^3/UL Mean Platelet Volume 10.6fl Neutrophils % 46.0% Lymphocytes % 28.0% Monocytes % 12.6% Eosinophils % 12.4% Basophils % 0.6% Nucleated Red Blood Cells % 0.0/100WBC Neutrophils # 2.410^3/ul Lymphocytes # 1.410^3/ul Monocytes # 0.710^3/ul Eosinophils # 0.610^3/ul Basophils # 0.010^3/ul Nucleated Red Blood Cells # 0.010^3/ul Sodium Level 139mmol/L Potassium Level 5.4mmol/L Chloride Level 100mmol/L Carbon Dioxide Level 20mmol/L Anion Gap 24 Blood Urea Nitrogen 69mg/dl Creatinine 15.77mg/dl Glucose Level 79mg/dl Calcium Level 8.8mg/dl Troponin I 0.114ng/ml Procedures/MDM EKG read by me: Rate/Rhythm: Regular rate and rhythm at a normal rate Intervals: Normal Impression: Normal rate without signs of hyperkalemia Chest x-ray negative per radiology. Patient is a 31-year-old male with hypertension and dialysis who presents with dialysis catheter malfunction. The patient is a mild hyperkalemia with potassium of 5.4. The patient will be given Kayexalate. The patient will be admitted to a medical surgical bed under the care of Dr. Pulliam from the panel team as the patient was recently admitted to the panel team. The patient will need dialysis catheter malfunction fixed tomorrow either by interventional radiology or replacement of the dialysis catheter. The patient will need dialysis once he has the catheter replaced or fixed. The patient has an elevated BUN and creatinine with chronic renal failure as well as anemia but does not require transfusion. Departure Diagnosis: Primary Impression: Dialysis catheter clot or failure Additional Impressions: Chronic renal failure Qualified Code: N18.9 - Chronic renal failure, unspecified CKD stage Anemia Qualified Code: D64.9 - Anemia, unspecified type Condition: BRISEYDA Breaux MD Apr 16, 2017 22:52
[2017-04-16] MEDS ORDERED: DOCUSATE SODIUM 100 MG CAP PO PRN (23:30)
[2017-04-16] MEDS ORDERED: HYDROCODONE/APAP (5/325) TAB PO PRN (23:30)
[2017-04-16] MEDS ORDERED: NACL 0.9% 3 ML SYG IV SCH (23:30)
[2017-04-16] MEDS ORDERED: LORAZEPAM 1 MG TAB PO PRN (23:30)
[2017-04-16] MEDS ORDERED: BISACODYL (EC) 5 MG TAB PO PRN (23:30)
[2017-04-16 23:44] VITALS: BP 160/98; PULSE 74; RESP 18
[2017-04-16] MEDS: FAMOTIDINE 20 MG TAB PO SCH (23:54)
[2017-04-17] VITALS (15 sets, daily range): BP systolic 104–191; BP diastolic 59–115; PULSE 63–88; RESP 16–20
[2017-04-17] MEDS ORDERED: hydrALAzine 20 MG INJ IV PRN (03:30)
--- NOTE | 2017-04-17 04:02 | HP ---
Date/Time of Note Date/Time of Note DATE: 04/17/17 TIME: 03:50 Assessment/Plan VTE Prophylaxis VTE Prophylaxis Intervention: SCD's Lines/Catheters IV [facility]atheter Type (from [facility] Saline Lock Urinary Cath still in place: No Assessment/Plan Chief Complaint/Hosp Course This is a 31-year-old male being admitted to the [facility] floor for: #1 malfunctioning right femoral dialysis catheter: We will need to consult vascular surgery and nephrology regarding line access. At the current time is stable and not requiring any urgent dialysis. 2. ESRD on HD: Patient has a dialysis schedule of Tuesday. His last dialysis was . At the current time his potassium is 5.4. He is otherwise stable at this time. Again we will consult vascular and nephrology in regards to getting access for dialysis while we await the maturation of his left AV fistula. Check CMP, phosphorus, magnesium in a.m. Resume home renal medications. 3. Hypertension: We will continue patient's home medications. 4. Anemia of chronic disease: Hemoglobin is 8.6 which is stable from his last admission. Resume Epogen as per nephrology. #4 DVT and GI prophylaxis: SCDs, acid davey Further treatment strategy will be implemented as per the clinical course Problems: HPI/ROS Admit Date/Time Admit Date/Time Apr 16, 2017 at 21:23 Hx of Present Illness Chief complaint: Femoral dialysis catheter not working Patient is a 31-year-old male with dialysis and hypertension who presents with a dialysis catheter which is not working. He went to dialysis today but the right femoral dialysis catheter was not functioning and they could not do dialysis. The patient had dialysis on and that was the last time he had it. He gets it Tuesday, , and Tuesday. He has no other complaints. Patient was just discharged on 04/15/2017 and during that hospital stay he had his right chest permacatheter removed secondary due to a line infection and he has a left AV fistula that is still maturing. Allergies: NKDA Medications: See MAR ROS Const: Negative for fever, chills, weight gain or weight loss, fatigue, or diaphoresis Eyes : No pain discharge or redness or change in visual acuity ENT: No pain, sore throat, congestion, congestion, dysphagia or discharge Respiratory: No shortness of breath, cough, sputum, wheezing, or pleuritic pain Cardiovascular: No chest pain, palpitation, PND, or edema GI : no change in appetite, abdominal pain, nausea, vomiting, diarrhea, constipation, or change in the color his stool Genitourinary: No dysuria, hematuria, flank pain , discharge or CVA tenderness Musculoskeletal: No joint pain, back pain, neck pain, restricted range of motion in neck or joints Skin: No rash, bruising or hives Neuro: No headache, dizziness, syncope, seizure, focal weakness Endocrine: No polyuria, polydipsia, temperature intolerance Psych: No hallucination, depression, anxiety or suicidal ideation PMH/Family/Social Past Medical History hypertension, renal disease, Anemia of chronic disease Past Surgical History Left upper extremity AV fistula, removal of right chest permacath secondary to line infection, insertion of right femoral dialysis catheter Family History Significant Family History: no pertinent family hx Social History Alcohol Use: occasionally Smoking Status: Never smoker Drug Use: none Exam/Review of Systems Vital Signs Vitals Vital Signs Date Time Temp Pulse Resp B/P Pulse Ox O2 Delivery O2 Flow Rate FiO2 04/16/17 23:44 97.9 74 18 160/98 98 Room Air Exam Exam General: Patient is well-developed well-nourished The patient is alert oriented -3 lying comfortably in bed. HEENT: Atraumatic, normocephalic. The pupils are equal, round and reactive. Extraocular motor are intact Neck: Supple with full range of motion. No rigidity or meningismus Chest: Nontender Lungs: Clear to auscultation bilaterally no crackles rales or wheezing Heart: Normal S1-S2, Regular rhythm and rate. No overt murmurs appreciated Abdomen: Soft , nontender, nondistended , bowel sounds are present. No guarding no rebound tenderness , No masses or organomegaly. No costovertebral temporal angle mass Extremities: Left upper extremity AV fistula. Normal to inspection, no edema no cyanosis Neurologic: Normal mental status, speech normal, cranial nerves II through XII are intact, motor and sensory are intact, no focal weakness Vascular: Right femoral dialysis catheter Skin: Right femoral dialysis catheter Labs Result Diagram: 04/16/17210804/16/172108 Medications Medications Current Medications Ondansetron HCl (Zofran Inj) 4 mg Q6H PRN IV NAUSEA AND/OR VOMITING; Start 04/16/17 at 23:30 Acetaminophen (Tylenol Tab) 650 mg Q6H PRN PO PAIN LEVEL 1-3 OR FEVER; Start 04/16/17 at 23:30 Acetaminophen/ Hydrocodone Bitart ([place] (5/325)) 1 tab Q6H PRN PO MODERATE PAIN LEVEL 4-6; Start 04/16/17 at 23:30 Docusate Sodium (Colace) 100 mg Q12H PRN PO CONSTIPATION; Start 04/16/17 at 23: 30 Bisacodyl (Dulcolax) 5 mg DAILY PRN PO CONSTIPATION; Start 04/16/17 at 23:30 Famotidine (Pepcid) 20 mg DAILY PO Last administered on 04/16/17 23:54; Admin Dose 20 MG; Start 04/16/17 at 23:30 Calcitriol (Rocaltrol) 0.25 mcg DAILY PO ; Start 04/17/17 at 09:00 Carvedilol (Coreg) 25 mg BID PO Last administered on 04/16/17 23:54; Admin Dose 25 MG; Start 04/16/17 at 23:30 Furosemide (Lasix) 40 mg DAILY@06 PO ; Start 04/17/17 at 06:00 Hydralazine HCl (Apresoline) 50 mg QID PO Last administered on 04/16/17 23:53 ; Admin Dose 50 MG; Start 04/16/17 at 23:30 Lorazepam (Ativan) 1 mg BID PRN PO ANXIETY; Start 04/16/17 at 23:30 Nifedipine (Procardia Xl) 90 mg BID PO ; Start 04/17/17 at 09:00 Hydralazine HCl (Apresoline) 10 mg Q4H PRN IV ELEVATED BLOOD PRESSURE Last administered on 04/17/17 03:19; Admin Dose 10 MG; Start 04/17/17 at 03:30 VIMAL IBANEZ Apr 17, 2017 04:01
[2017-04-17] MEDS ORDERED: FUROSEMIDE 40 MG TAB PO SCH (06:00)
[2017-04-17 06:35] LABS: BASOPHILS % 0.8 % (0.0-2.0); EOSINOPHILS # 0.6 10^3/ul (0.0-0.5); EOSINOPHILS % 11.9 % (0.0-7.0); HEMATOCRIT 27.1 % (42.0-52.0); HEMOGLOBIN 8.3 g/dl (14.0-18.0); LYMPHOCYTES # 1.6 10^3/ul (0.8-2.9); MEAN CORPUSCULAR HEMOGLOBIN 29.2 pg (29.0-33.0); MEAN CORPUSCULAR HGB CONC 30.6 g/dl (32.0-37.0); MEAN CORPUSCULAR VOLUME 95.4 fl (82.0-101.0); MEAN PLATELET VOLUME 10.9 fl (7.4-10.4); MONOCYTE # 0.6 10^3/ul (0.3-0.9); MONOCYTES % 11.5 % (0.0-11.0); NEUTROPHIL # 2.2 10^3/ul (1.6-7.5); NEUTROPHILS % 43.4 % (39.0-77.0); PLATELET COUNT 172 10^3/UL (140-415); RED BLOOD COUNT 2.84 10^6/ul (4.70-6.10); RED CELL DISTRIBUTION WIDTH 12.9 % (11.5-14.5); WHITE BLOOD COUNT 5.1 10^3/ul (4.8-10.8)
[2017-04-17 07:46] LABS: ALBUMIN 3.8 g/dl (3.3-4.9); ALBUMIN/GLOBULIN RATIO 1.15; CALCIUM 8.3 mg/dl (8.4-10.2); MAGNESIUM 2.8 mg/dl (1.7-2.5); PHOSPHORUS 11.2 mg/dl (2.5-4.9); TOTAL PROTEIN 7.1 g/dl (6.1-8.1)
[2017-04-17 07:53] LABS: CREATININE 16.29 mg/dl (0.61-1.24)
[2017-04-17] MEDS: SEVELAMER 800 MG TAB PO SCH ×3 (07:57→17:34)
[2017-04-17] MEDS: FAMOTIDINE 20 MG TAB PO SCH (08:40)
[2017-04-17] MEDS: NIFEdipine (XL) 90 MG TAB PO SCH ×2 (08:42→20:47)
[2017-04-17] MEDS ORDERED: CALCITRIOL 0.25 MCG CAP PO SCH (09:00)
--- NOTE | 2017-04-17 11:57 | PN ---
Date/Time of Note Date/Time of Note DATE: 04/17/17 TIME: 11:55 Assessment/Plan VTE Prophylaxis VTE Prophylaxis Intervention: other Lines/Catheters IV [facility]atheter Type [facility]from [facility]): Saline Lock Urinary Cath still in place: No Subjective 24 Hr Interval Summary Free Text/Dictation nephrology note This is a 31-year-old male being admitted to the [facility] floor for: #1 malfunctioning right femoral dialysis catheter: At the current time is stable and not requiring any urgent dialysis. I will put Activase in both ports and try HD after an hour. If non-functional then I will consult Dr camara 2. ESRD on HD: Patient has a dialysis schedule of Tuesday. His last dialysis was . will dialyze once line is placed 3. Hypertension: We will continue patient's home medications. 4. Anemia of chronic disease: Hemoglobin is 8.6 which is stable from his last admission. Resume Epogen as per nephrology. #4 DVT and GI prophylaxis: SCDs, acid davey Const: Negative for fever, chills, weight gain or weight loss, fatigue, or diaphoresis Eyes : No pain discharge or redness or change in visual acuity ENT: No pain, sore throat, congestion, congestion, dysphagia or discharge Respiratory: No shortness of breath, cough, sputum, wheezing, or pleuritic pain Cardiovascular: No chest pain, palpitation, PND, or edema GI : no change in appetite, abdominal pain, nausea, vomiting, diarrhea, constipation, or change in the color his stool Genitourinary: No dysuria, hematuria, flank pain , discharge or CVA tenderness Musculoskeletal: No joint pain, back pain, neck pain, restricted range of motion in neck or joints Skin: No rash, bruising or hives Neuro: No headache, dizziness, syncope, seizure, focal weakness Endocrine: No polyuria, polydipsia, temperature intolerance Psych: No hallucination, depression, anxiety or suicidal ideation PMH/Family/Social Past Medical History hypertension, renal disease, Anemia of chronic disease General: Patient is well-developed well-nourished The patient is alert oriented -3 lying comfortably in bed. HEENT: Atraumatic, normocephalic. The pupils are equal, round and reactive. Extraocular motor are intact Neck: Supple with full range of motion. No rigidity or meningismus Chest: Nontender Lungs: Clear to auscultation bilaterally no crackles rales or wheezing Heart: Normal S1-S2, Regular rhythm and rate. No overt murmurs appreciated Abdomen: Soft , nontender, nondistended , bowel sounds are present. No guarding no rebound tenderness , No masses or organomegaly. No costovertebral temporal angle mass Extremities: Left upper extremity AV fistula. Normal to inspection, no edema no cyanosis Neurologic: Normal mental status, speech normal, cranial nerves II through XII are intact, motor and sensory are intact, no focal weakness Vascular: Right femoral dialysis catheter Skin: Right femoral dialysis catheter Exam/Review of Systems Vital Signs Vitals Vital Signs Date Time Temp Pulse Resp B/P Pulse Ox O2 Delivery O2 Flow Rate FiO2 04/17/17 09:24 68 156/96 04/17/17 08:00 98.1 19 98 04/16/17 23:44 Room Air Intake and Output 04/16/17 04/16/17 04/17/17 15:00 23:00 07:00 Intake Total 360 ml Output Total 0 ml Balance 360 ml Results Result Diagram: 04/17/1730 04/17/1730 Results 24 hrs Laboratory Tests Test 04/16/17 21:09 04/17/17 05:30 White Blood Count 5.2 # 5.1 Red Blood Count 2.85 L 2.84 L Hemoglobin 8.6 L 8.3 L Hematocrit 27.7 L 27.1 L Mean Corpuscular Volume 97.2 95.4 Mean Corpuscular Hemoglobin 30.2 29.2 Mean Corpuscular Hemoglobin Concent 31.0 L 30.6 L Red Cell Distribution Width 12.8 12.9 Platelet Count 190 172 Mean Platelet Volume 10.6 H 10.9 H Neutrophils % 46.0 43.4 Lymphocytes % 28.0 32.0 Monocytes % 12.6 H 11.5 H Eosinophils % 12.4 H 11.9 H Basophils % 0.6 0.8 Nucleated Red Blood Cells % 0.0 0.0 Neutrophils # 2.4 2.2 Lymphocytes # 1.4 1.6 Monocytes # 0.7 0.6 Eosinophils # 0.6 H 0.6 H Basophils # 0.0 0.0 Nucleated Red Blood Cells # 0.0 0.0 Sodium Level 139 139 Potassium Level 5.4 H 5.0 Chloride Level 100 99 Carbon Dioxide Level 20 L 21 Anion Gap 24 H 24 H Blood Urea Nitrogen 69 H 77 H Creatinine 15.77 H 16.29 H Glucose Level 79 86 Calcium Level 8.8 8.3 L Troponin I 0.114 Phosphorus Level 11.2 H Magnesium Level 2.8 H Total Bilirubin 0.0 L Direct Bilirubin 0.00 Indirect Bilirubin 0.0 Aspartate Amino Transf (AST/SGOT) 28 Alanine Aminotransferase (ALT/SGPT) 36 Alkaline Phosphatase 119 Total Protein 7.1 Albumin 3.8 Globulin 3.30 H Albumin/Globulin Ratio 1.15 Medications Medications Current Medications Ondansetron HCl (Zofran Inj) 4 mg Q6H PRN IV NAUSEA AND/OR VOMITING; Start 04/16/17 at 23:30 Acetaminophen (Tylenol Tab) 650 mg Q6H PRN PO PAIN LEVEL 1-3 OR FEVER; Start 04/16/17 at 23:30 Acetaminophen/ Hydrocodone Bitart (Thornton (5/325)) 1 tab Q6H PRN PO MODERATE PAIN LEVEL 4-6; Start 04/16/17 at 23:30 Docusate Sodium (Colace) 100 mg Q12H PRN PO CONSTIPATION; Start 04/16/17 at 23: 30 Bisacodyl (Dulcolax) 5 mg DAILY PRN PO CONSTIPATION; Start 04/16/17 at 23:30 Famotidine (Pepcid) 20 mg DAILY PO Last administered on 04/17/17 08:40; Admin Dose 20 MG; Start 04/16/17 at 23:30 Calcitriol (Rocaltrol) 0.25 mcg DAILY PO Last administered on 04/17/17 08:55; Admin Dose 0.25 MCG; Start 04/17/17 at 09:00 Carvedilol (Coreg) 25 mg BID PO Last administered on 04/17/17 08:40; Admin Dose 25 MG; Start 04/16/17 at 23:30 Furosemide (Lasix) 40 mg DAILY@06 PO Last administered on 04/17/17 05:33; Admin Dose 40 MG; Start 04/17/17 at 06:00 Hydralazine HCl (Apresoline) 50 mg QID PO Last administered on 04/17/17 08:41 ; Admin Dose 50 MG; Start 04/16/17 at 23:30 Lorazepam (Ativan) 1 mg BID PRN PO ANXIETY; Start 04/16/17 at 23:30 Nifedipine (Procardia Xl) 90 mg BID PO Last administered on 04/17/17 08:42; Admin Dose 90 MG; Start 04/17/17 at 09:00 Hydralazine HCl (Apresoline) 10 mg Q4H PRN IV ELEVATED BLOOD PRESSURE Last administered on 04/17/17 03:19; Admin Dose 10 MG; Start 04/17/17 at 03:30 ZEINA PLASCENCIA DO Apr 17, 2017 11:57
[2017-04-17] MEDS ORDERED: ALTEPLASE (CATHFLO) 2 MG INJ CATHETER SCH (13:00)
[2017-04-17] MEDS ORDERED: HEPARIN 1000 UNITS/ML 10 ML INJ CATHETER SCH (14:00)
--- NOTE | 2017-04-17 21:30 | DS ---
Date/Time of Note Date/Time of Note DATE: 04/17/17 TIME: 21:21 Discharge Summary Admission/Discharge Info Admit Date/Time Apr 16, 2017 at 21:23 Discharge Date/Time 04/17/2017 at approximately 9:30pm Discharge Diagnosis Malfunctioning Dialyisis cathter - resolved ESRD on HD Patient Condition: Stable Consults Dr. Jaleel Santos, Nephrology Hx of Present Illness Chief complaint: Femoral dialysis catheter not working Patient is a 31-year-old male with dialysis and hypertension who presents with a dialysis catheter which is not working. He went to dialysis today but the right femoral dialysis catheter was not functioning and they could not do dialysis. The patient had dialysis on and that was the last time he had it. He gets it Tuesday, , and Tuesday. He has no other complaints. Patient was just discharged on 04/15/2017 and during that hospital stay he had his right chest permacatheter removed secondary due to a line infection and he has a left AV fistula that is still maturing. Hospital Course Patient is a 31-year-old male with dialysis and hypertension who presents with a dialysis catheter which is not working. He went to dialysis today but the right femoral dialysis catheter was not functioning and they could not do dialysis. The patient had dialysis on and that was the last time he had it. He gets it Tuesday, , and Tuesday. He has no other complaints. Patient was just discharged on 04/15/2017 and during that hospital stay he had his right chest permacatheter removed secondary due to a line infection and he has a left AV fistula that is still maturing. He was admitted to the hospital and nephro and vascular surgery were consulted. He was seen by nephrology who recommended Activase to see if the ports would work.. Activase was put in both catheter ports. HD was initiated and completed successfully according to the nurse. The night RN spoke with Dr. Gardiner, the nephro instructional interventionist doctor, regarding this and he cleared the patient for discharge. Patient will be discharged tonight. He was instructed to return to the hospital if any fevers, n/v, or other concerns, if his port malfunctions again he was advised to return to the hospital immediately for intervention. Patient verbalized understanding. He is due for his next dialysis on Tuesday. Home Meds Active Scripts Ciprofloxacin Hcl* (Ciprofloxacin Hcl*) 500 Mg Tablet, 500 MG PO DAILY for 5 Days, #5 TAB Prov:BENJAMIN WALLS MD 03/31/17 Lorazepam* (Lorazepam*) 1 Mg Tablet, 1 MG PO BID Y for ANXIETY, #14 TAB Prov:RAMIROYELITZAPATTY S. 11/25/15 Hydralazine Hcl* (Hydralazine Hcl*) 50 Mg Tab, 50 MG PO QID, #120 TAB Prov:PATTY SERNA S. 11/25/15 Sevelamer Hcl* (Renagel*) 800 Mg Tab, 3200 MG PO WITH MEALS for 30 Days, TAB Prov:REGIDORBRIGHT 11/18/15 Nifedipine* (Procardia XL*) 90 Mg Tabsr, 90 MG PO BID for 30 Days, TAB Prov:REGIDORBRIGHT 11/18/15 Furosemide* (Lasix*) 40 Mg Tab, 40 MG PO DAILY@06 for 30 Days, TAB Prov:REGIDORBRIGHT 11/18/15 Carvedilol* (Coreg*) 25 Mg Tab, 25 MG PO BID for 30 Days, TAB Prov:REGIDORBRIGHT 11/18/15 Calcitriol* (Rocaltrol*) 0.25 Mcg Cap, 0.25 MCG PO DAILY, #30 CAP 2 Refills Prov:MORGAN JOHNSON MD 09/18/15 Aspirin (Aspirin) 81 Mg Chew, 81 MG PO DAILY, #30 TAB 2 Refills Prov:MORGAN JOHNSON MD 09/18/15 Reported Medications Famotidine* (Famotidine*) 20 Mg Tablet, 20 MG PO BID, TAB 07/12/15 Follow-up Plan He was instructed to return to the hospital if any fevers, n/v, or other concerns, if his port malfunctions again he was advised to return to the hospital immediately for intervention. Patient verbalized understanding. He is due for his next dialysis on Tuesday. Follow up with primary doctor in 3 - 5 days. Follow up with next dialysis on Tuesday. Primary Care Provider Not On Staff Doctor Time spent on discharge: > 30 minutes Pending Labs Laboratory Tests Test 04/17/17 05:30 White Blood Count 5.110^3/ul (4.8-10.8) Red Blood Count 2.8410^6/ul (4.70-6.10) Hemoglobin 8.3g/dl (14.0-18.0) Hematocrit 27.1% (42.0-52.0) Mean Corpuscular Volume 95.4fl (82.0-101.0) Mean Corpuscular Hemoglobin 29.2pg (29.0-33.0) Mean Corpuscular Hemoglobin Concent 30.6g/dl (32.0-37.0) Red Cell Distribution Width 12.9% (11.5-14.5) Platelet Count 73938^3/UL (140-415) Mean Platelet Volume 10.9fl (7.4-10.4) Neutrophils % 43.4% (39.0-77.0) Lymphocytes % 32.0% (15.0-51.0) Monocytes % 11.5% (0.0-11.0) Eosinophils % 11.9% (0.0-7.0) Basophils % 0.8% (0.0-2.0) Nucleated Red Blood Cells % 0.0/100WBC (0.0-0.0) Neutrophils # 2.210^3/ul (1.6-7.5) Lymphocytes # 1.610^3/ul (0.8-2.9) Monocytes # 0.610^3/ul (0.3-0.9) Eosinophils # 0.610^3/ul (0.0-0.5) Basophils # 0.010^3/ul (0.0-0.1) Nucleated Red Blood Cells # 0.010^3/ul (0.0-0.0) Sodium Level 139mmol/L (135-144) Potassium Level 5.0mmol/L (3.5-5.1) Chloride Level 99mmol/L (97-110) Carbon Dioxide Level 21mmol/L (21-31) Anion Gap 24 (8-16) Blood Urea Nitrogen 77mg/dl (7-20) Creatinine 16.29mg/dl (0.61-1.24) Glucose Level 86mg/dl (70-220) Calcium Level 8.3mg/dl (8.4-10.2) Phosphorus Level 11.2mg/dl (2.5-4.9) Magnesium Level 2.8mg/dl (1.7-2.5) Total Bilirubin 0.0mg/dl (0.2-1.3) Direct Bilirubin 0.00mg/dl (0.00-0.20) Indirect Bilirubin 0.0mg/dl (0-1.1) Aspartate Amino Transf (AST/SGOT) 28IU/L (15-46) Alanine Aminotransferase (ALT/SGPT) 36IU/L (13-69) Alkaline Phosphatase 119IU/L (42-121) Total Protein 7.1g/dl (6.1-8.1) Albumin 3.8g/dl (3.3-4.9) Globulin 3.30g/dl (1.3-3.2) Albumin/Globulin Ratio 1.15 Copies To: CC: FROILAN PANCHAL MUNEEB Apr 17, 2017 21:30
--- NOTE | 2017-04-17 21:42 | PDOCDIS ---
Discharge Instructions DIAGNOSIS Discharge Diagnosis Malfunctioning Dialyisis cathter - resolved ESRD on HD CONDITION Patient Condition: Stable HOME CARE INSTRUCTIONS: Diet Instructions: Special Diet: RENAL DIET ACTIVITY: Activity Restrictions: No Restrictions Bathing Restrictions: Sponge Bath FOLLOW UP/APPOINTMENTS Follow-up Plan He was instructed to return to the hospital if any fevers, n/v, or other concerns, if his port malfunctions again he was advised to return to the hospital immediately for intervention. Patient verbalized understanding. He is due for his next dialysis on Tuesday. Follow up with primary doctor in 3 - 5 days. Follow up with next dialysis on Tuesday. SCHOOL/WORK RELEASE May return to School/Work with: No Restrictions VIMAL IBANEZ Apr 17, 2017 21:42
== END 2017-04-17 22:17 | disposition home or self-care (01) | DRG 314 ==
LOC: E/R 20:02 → PP2 21:23
PROVIDERS: ADMIT Family Medicine; ATTEND Family Medicine
DX: T82.898A Other specified complication of vascular prosthetic devices, implants and grafts, initial encounter (principal); N18.6 End stage renal disease; I12.0 Hypertensive chronic kidney disease with stage 5 chronic kidney disease or end stage renal disease; D64.9 Anemia, unspecified; Y84.1 Kidney dialysis as the cause of abnormal reaction of the patient, or of later complication, without mention of misadventure at the time of the procedure; Y92.009 Unspecified place in unspecified non-institutional (private) residence as the place of occurrence of the external cause; Z99.2 Dependence on renal dialysis
CPT/HCPCS: 36415; 71010; 80048; 80053; 83735; 84100; 84484; 85025; 87081; 90935; 93005; J0360; J1644; J2997